=== PATIENT | female | born 1975 | race Caucasian/White ===

== ENCOUNTER 2017-06-28 17:27 | Emergency (ER) | payer OTHER ==
[2017-06-28 18:52] LABS: Absolute Lymphocytes (CBC) 3.3 K/uL (0.7-4.9); Absolute Monocytes 0.8 K/uL (0.1-1.3); Absolute Neutrophil 5.9 K/uL (1.8-8.0); Basophils % 0.9 % (0-1.3); Hematocrit 39.2 % (36.0-45.0); Lymphocytes % 32.4 % (15.3-44.8); MCH 30.3 pg (27.0-35.0); MCV 92.9 fL (80-100); MPV 9.1 fL (7.6-11.3); Monocytes % 7.3 % (3.3-12.3); RBC Red Blood Cell Count 4.22 M/uL (3.86-4.86)
[2017-06-28 18:56] LABS: Bicarbonate 28 mEq/L (21-31); Glucose Level 83 mg/dL (65-120); Lipase 16 U/L (22-51); Potassium 3.4 mEq/L (3.6-5.0); Sodium Level 138 mEq/L (135-145)
[2017-06-28 19:01] LABS: Urine Blood TRACE (NEG); Urine Glucose NEGATIVE (NEG); Urine Protein NEGATIVE (NEG); Urine Specific Gravity 1.015 (1.005-1.030)
[2017-06-28] MEDS ORDERED: MORPHINE 4 MG/ML SYR ONE ×2 (19:01→22:48)
[2017-06-28] MEDS ORDERED: NA CHLORIDE 0.9% 1,000 ML ONE (19:01)
[2017-06-28] MEDS ORDERED: ONDANSETRON 4 MG/2 ML VIAL ONE (19:01)
[2017-06-28 19:03] LABS: ALT/SGPT 13 IU/L (10-60); AST/SGOT 16 IU/L (10-42); Albumin 4.4 g/dL (3.2-5.5); Alkaline Phosphatase 55 IU/L (42-121); BUN Blood Urea Nitrogen 10 mg/dL (6-20); Bilirubin Direct 0.1 mg/dL (0-0.2); Bilirubin Total 0.6 mg/dL (0.3-1.2); Glomerular Filtration Rate > 90 mL/min (=/>90); Protein, Total 7.2 g/dL (6.0-8.3)
[2017-06-28 19:12] LABS: Urine Bacteria <20 /HPF (<20); Urine Culture Reflex Order NOT NEEDED
[2017-06-28 19:13] LABS: Urine Mucus NS /HPF (NONE SEEN)
--- NOTE | 2017-06-28 20:48 | RAD REPORT ---
EXAM DESCRIPTION: CTAbdomen Pelvis W Contrast - 06/28/2017 8:39 pm CLINICAL HISTORY: Abdominal pain. Bilateral flank pain. COMPARISON: 09/13/2014 TECHNIQUE: Biphasic CT imaging of the abdomen and pelvis was performed with 100 ml non-ionic IV cont rast. All CT scans are performed using dose optimization technique as appropriate and may include automated exposure control or mA/KV adjustment according to patient size. FINDINGS: The lung bases are clear.Cholecystectomy clips. The liver, spleen, pancreas, adrenal glands are within normal limits. Bilateral nephrolithiasis witho ut hydronephrosis. No bowel obstruction, free air, free fluid or abscess. The appendix is normal. No evidence of signi ficant lymphadenopathy. No suspicious bony findings. IMPRESSION: Mild bilateral nephrolithiasis without hydronephrosis.
--- NOTE | 2017-06-28 23:21 | EDPHYS ---
Physician Documentation [facility] Name: Eunice Griffin Age: 41 yrs Sex: Female : 1975 Arrival Date: 06/28/2017 Time: 17:29 Bed 23 Private MD: ED Physician Zach Garcia HPI: 06/28 22:00 This 41 yrs old Female presents to ER via Ambulatory with complaints of Flank pm1 Pain. 22:00 The patient complains of pain in the left low back and right low back. right flank pain pm1 radiation to right groin area. Onset: The symptoms/episode began/occurred june 05. Associated signs and symptoms: Pertinent negatives: dysuria, fever, nausea, vomiting. Severity of pain: in the emergency department the pain is actually worse. Patient with onset of flank pain a few weeks ago that was evaluated by her PCP and dx with UTI. Patient reports treatment with antibiotic that helped but then the pain returned. Patient without any burning with urination on presentation today. bilateral flank pain with right flank pain radiating to right groin area. MUFFLER TENDER: 17:50 LMP N/A - control method lk1 Historical: - Allergies: 17:49 Macrodantin; lk1 - PMHx: 17:49 Diabetes - NIDDM; Hypothyroidism; lk1 - PSHx: 17:49 ; Cholecystectomy; neck surgery; lk1 17:51 uterine ablation; lk1 - Immunization history:: Adult Immunizations up to date. - Social history:: Smoking status: Patient uses tobacco products, smokes one-half pack cigarettes per day. ROS: 22:00 Constitutional: Negative for fever, chills, and weight loss, Eyes: Negative for injury, pm1 pain, redness, and discharge, ENT: Negative for injury, pain, and discharge, Neck: Negative for injury, pain, and swelling, Cardiovascular: Negative for chest pain, palpitations, and edema, Respiratory: Negative for shortness of breath, cough, wheezing, and pleuritic chest pain, Abdomen/GI: Negative for abdominal pain, nausea, vomiting, diarrhea, and constipation. 22:00 : Negative for injury, bleeding, discharge, and swelling, MS/Extremity: Negative for injury and deformity, Skin: Negative for injury, rash, and discoloration, Neuro: Negative for headache, weakness, numbness, tingling, and seizure. 22:00 Back: Positive for flank pain, bilaterally. Exam: 22:00 Constitutional: This is a well developed, well nourished patient who is awake, alert, pm1 and in no acute distress. Head/Face: Normocephalic, atraumatic. Eyes: Pupils equal round and reactive to light, extra-ocular motions intact. Lids and lashes normal. Conjunctiva and sclera are non-icteric and not injected. Cornea within normal limits. Periorbital areas with no swelling, redness, or edema. ENT: Nares patent. No nasal discharge, no septal abnormalities noted. Tympanic membranes are normal and external auditory canals are clear. Oropharynx with no redness, swelling, or masses, exudates, or evidence of obstruction, uvula midline. Mucous membranes moist. Neck: Trachea midline, no thyromegaly or masses palpated, and no cervical lymphadenopathy. Supple, full range of motion without nuchal rigidity, or vertebral point tenderness. No Meningismus. Chest/axilla: Normal chest wall appearance and motion. Nontender with no deformity. No lesions are appreciated. Cardiovascular: Regular rate and rhythm with a normal S1 and S2. No gallops, murmurs, or rubs. Normal PMI, no JVD. No pulse deficits. Respiratory: Lungs have equal breath sounds bilaterally, clear to auscultation and percussion. No rales, rhonchi or wheezes noted. No increased work of breathing, no retractions or nasal flaring. Abdomen/GI: Soft, non-tender, with normal bowel sounds. No distension or tympany. No guarding or rebound. No evidence of tenderness throughout. 22:00 Skin: Warm, dry with normal turgor. Normal color with no rashes, no lesions, and no evidence of cellulitis. MS/ Extremity: Pulses equal, no cyanosis. Neurovascular intact. Full, normal range of motion. 22:00 Back: CVA tenderness, that is mild, is noted bilaterally. 22:00 Neuro: Orientation: is normal, Motor: moves all fours. Vital Signs: 17:50 BP 136 / 85; Pulse 81; Resp 14; Temp 97.4(TE); Pulse Ox 96% on R/A; Weight 70.31 kg lk1 (R); Height 5 ft. 2 in. (157.48 cm) (R); Pain 7/10; 19:00 BP 128 / 87; Pulse 76; Resp 16; Pulse Ox 98% on R/A; kr2 20:00 BP 136 / 92; Pulse 73; Resp 15; Pulse Ox 96% on R/A; kr2 21:08 BP 112 / 74; Pulse 81; Resp 16; Pulse Ox 94% on R/A; kr2 22:32 BP 119 / 82; Pulse 80; Resp 16; Pulse Ox 95% ; kr2 23:27 BP 122 / 86; Pulse 84; Resp 15; Pulse Ox 99% on R/A; kr2 17:50 Body Mass Index 28.35 (70.31 kg, 157.48 cm) lk1 MDM: 18:17 Patient medically screened. pm1 23:14 Data reviewed: vital signs. Data interpreted: Pulse oximetry: on room air is 95 %. pm1 Interpretation: normal. Counseling: I had a detailed discussion with the patient and/or guardian regarding: the historical points, exam findings, and any diagnostic results supporting the discharge/admit diagnosis, lab results, radiology results, the need for outpatient follow up, to return to the emergency department if symptoms worsen or persist or if there are any questions or concerns that arise at home. 06/28 18:23 Order name: Urine Microscopic Only; Complete Time: 19:25 pm1 06/28 18:23 Order name: Basic Metabolic Panel; Complete Time: 19:06 pm1 06/28 18:23 Order name: CBC with Diff; Complete Time: 19:06 pm1 06/28 18:23 Order name: Hepatic Function; Complete Time: 19:06 pm1 06/28 18:23 Order name: Lipase; Complete Time: 19:06 pm06/28 18:37 Order name: Urine Dipstick--Ancillary (enter results); Complete Time: 19:06 bd 06/28 18:23 Order name: Urine Test (obtain specimen); Complete Time: 18:43 pm1 06/28 18:23 Order name: IV Saline Lock; Complete Time: 18:43 pm1 06/28 18:23 Order name: CT Abd/Pelvis - W/Contrast; Complete Time: 20:52 pm1 06/28 18:37 Order name: Urine --Ancillary (enter results); Complete Time: 19:06 bd 06/28 18:23 Order name: Labs collected and sent; Complete Time: 18:43 pm1 06/28 18:23 Order name: Urine Dipstick-Ancillary (obtain specimen); Complete Time: 18:43 pm1 Administered Medications: 18:49 Drug: morphine 4 mg Route: IVP; Site: left antecubital; kr2 20:41 Follow up: Response: No adverse reaction; Pain is decreased kr2 18:49 Drug: Zofran 4 mg Route: IVP; Site: left antecubital; kr2 20:40 Follow up: Response: No adverse reaction; Nausea is decreased kr2 18:49 Drug: NS 0.9% 1000 ml Route: IV; Rate: 1000 ml; Site: left antecubital; kr2 20:15 Follow up: Response: No adverse reaction; IV Status: Completed infusion kr2 22:31 Drug: morphine 4 mg Route: IVP; Site: right antecubital; kr2 23:28 Follow up: Response: No adverse reaction kr2 Disposition: 06/28/17 23:20 Discharged to Home. Impression: Bilateral nephrolithiasis without hydronephrosis. - Condition is Stable. - Discharge Instructions: Kidney Stones, Dietary Guidelines to Help Prevent Kidney Stones. - Prescriptions for Tylenol- Codeine #3 300-30 mg Oral Tablet - take 2 tablets by ORAL route every 6 hours As needed; 20 tablet. Zofran 4 mg Oral Tablet - take 1 tablet by ORAL route every 8 hours As needed; 20 tablet. - Medication Reconciliation Form, Thank You Letter, Antibiotic Education, Prescription Opioid Use form. - Follow up: Emergency Department; When: As needed; Reason: Worsening of condition. Follow up: Alexa Mckeon MD; When: 2 - 3 days; Reason: Recheck today's complaints, Continuance of care, Re-evaluation by your physician. Follow up: Trenton Ross MD; When: 2 - 3 days; Reason: Recheck today's complaints, Continuance of care, Re-evaluation by your physician. - Problem is new. - Symptoms have improved. Addendum: 07/03/2017 03:04 Co-signature as Attending Physician, Zach Garcia MD I agree with the assessment and t w4 plan of care. Signatures: Dispatcher [employer] EDLakeisha Dawn RN RN lk1 Abhay Medrano, ALUMINUM CAN COLLECTOR ALUMINUM CAN COLLECTOR pm1 Juan, Gemma, RN RN kr2 Zach Garcia, MD tw4
--- NOTE | 2017-06-28 23:21 | ER ---
Nurse's Notes [facility] Name: Eunice Griffin Age: 41 yrs Sex: Female : 1975 Arrival Date: 06/28/2017 Time: 17:29 Bed 23 Private MD: Diagnosis: Bilateral nephrolithiasis without hydronephrosis Presentation: 06/28 17:47 Presenting complaint: Patient states: "I am having pain in my right side in the front lk1 and both my kidneys hurt.". Transition of care: patient was not received from another setting of care. Onset of symptoms was June 05, 2017. Care prior to arrival: None. 17:47 Method Of Arrival: Ambulatory lk1 17:47 Acuity: BEBO 3 lk1 Triage Assessment: 17:49 General: Appears uncomfortable, Behavior is calm, cooperative, appropriate for age. lk1 Pain: Complains of pain in right lower quadrant Pain radiates to left flank and right flank Pain currently is 7 out of 10 on a pain scale. GI: Reports nausea. : Reports pain in bilateral flank(s), lower quadrant(s) does not feel like she is emptying her bladder completely. RN INTAKE: 17:50 LMP N/A - control method lk1 Historical: - Allergies: 17:49 Macrodantin; lk1 - PMHx: 17:49 Diabetes - NIDDM; Hypothyroidism; lk1 - PSHx: 17:49 ; Cholecystectomy; neck surgery; lk1 17:51 uterine ablation; lk1 - Immunization history:: Adult Immunizations up to date. - Social history:: Smoking status: Patient uses tobacco products, smokes one-half pack cigarettes per day. Screenin:58 Abuse screen: Denies threats or abuse. Denies injuries from another. Nutritional kr2 screening: No deficits noted. Tuberculosis screening: No symptoms or risk factors identified. Fall Risk None identified. Assessment: 18:55 General: Appears in no apparent distress. comfortable, well groomed, well developed, kr2 well nourished, Behavior is calm, cooperative, appropriate for age. Pain: Complains of pain in right flank and abdomen Pain currently is 8 out of 10 on a pain scale. Quality of pain is described as stabbing, Pain began gradually, 2-3 days ago. Is continuous, Alleviated by nothing. Aggravated by increased activity. Neuro: Level of Consciousness is awake, alert, obeys commands, Oriented to person, place, time, situation, Appropriate for age. Cardiovascular: Capillary refill < 3 seconds in bilateral fingers Patient's skin is warm and dry. Respiratory: Airway is patent Respiratory effort is even, unlabored, Respiratory pattern is regular, symmetrical. GI: Abdomen is flat, non-distended, Bowel sounds present X 4 quads. Abd is soft X 4 quads Abdomen has rebound tenderness in right lower quadrant. : Urine is clear, Denies burning with urination. EENT: Nares are clear bilaterally Oral mucosa is moist. Derm: Skin is intact, is healthy with good turgor, Skin is pink, warm \\T\\ dry. Musculoskeletal: Circulation, motion, and sensation intact. 19:00 Reassessment: Complete PO contrast, CT department notified. kr2 20:35 Reassessment: Patient in CT at this time. kr2 21:00 Reassessment: Patient appears in no apparent distress at this time. Patient and/or kr2 family updated on plan of care and expected duration. Pain level reassessed. Patient is alert, oriented x 3, equal unlabored respirations, skin warm/dry/pink. Patient states feeling better. 22:31 Reassessment: Patient appears in no apparent distress at this time. Patient and/or kr2 family updated on plan of care and expected duration. Pain level reassessed. Patient is alert, oriented x 3, equal unlabored respirations, skin warm/dry/pink. Patient states she is starting to have pain again. Provider notified, order received for Morphine 4mg IVP, given as ordered, see MAR. 23:27 Reassessment: Patient appears in no apparent distress at this time. Patient and/or kr2 family updated on plan of care and expected duration. Pain level reassessed. Patient is alert, oriented x 3, equal unlabored respirations, skin warm/dry/pink. Patient denies pain at this time. Patient states feeling better. Vital Signs: 17:50 BP 136 / 85; Pulse 81; Resp 14; Temp 97.4(TE); Pulse Ox 96% on R/A; Weight 70.31 kg lk1 (R); Height 5 ft. 2 in. (157.48 cm) (R); Pain 7/10; 19:00 BP 128 / 87; Pulse 76; Resp 16; Pulse Ox 98% on R/A; kr2 20:00 BP 136 / 92; Pulse 73; Resp 15; Pulse Ox 96% on R/A; kr2 21:08 BP 112 / 74; Pulse 81; Resp 16; Pulse Ox 94% on R/A; kr2 22:32 BP 119 / 82; Pulse 80; Resp 16; Pulse Ox 95% ; kr2 23:27 BP 122 / 86; Pulse 84; Resp 15; Pulse Ox 99% on R/A; kr2 17:50 Body Mass Index 28.35 (70.31 kg, 157.48 cm) lk1 ED Course: 17:29 Patient arrived in ED. as 17:48 Triage completed. lk1 17:51 Arm band placed on right wrist. lk1 18:00 Urine collected: clean catch specimen, clear. dh3 18:15 Abhay Medraon NP is PHCP. pm1 18:15 Zach Garcia MD is Attending Physician. pm1 18:39 Gemma Martinez, TANISHA is Primary Nurse. kr2 18:42 Initial lab(s) drawn, by de, sent to lab. Inserted saline lock: 20 gauge in right 3 antecubital area, using aseptic technique. Blood collected. 18:58 Patient has correct armband on for positive identification. Bed in low position. Call kr2 light in reach. Side rails up X 1. Pulse ox on. NIBP on. Door closed. Warm blanket given. Head of bed elevated. 20:40 CT Abd/Pelvis - W/Contrast In Process Unspecified. EDMS 23:20 Alexa Mckeon MD is Referral Physician. pm1 23:20 Trenton Ross MD is Referral Physician. pm1 23:52 No provider procedures requiring assistance completed. IV discontinued, intact, kr2 bleeding controlled, No redness/swelling at site. Pressure dressing applied. Administered Medications: 18:49 Drug: morphine 4 mg Route: IVP; Site: left antecubital; kr2 20:41 Follow up: Response: No adverse reaction; Pain is decreased kr2 18:49 Drug: Zofran 4 mg Route: IVP; Site: left antecubital; kr2 20:40 Follow up: Response: No adverse reaction; Nausea is decreased kr2 18:49 Drug: NS 0.9% 1000 ml Route: IV; Rate: 1000 ml; Site: left antecubital; kr2 20:15 Follow up: Response: No adverse reaction; IV Status: Completed infusion kr2 22:31 Drug: morphine 4 mg Route: IVP; Site: right antecubital; kr2 23:28 Follow up: Response: No adverse reaction kr2 Outcome: 23:20 Discharge ordered by . pm1 23:52 Discharged to home ambulatory, with family. kr2 23:52 Condition: good 23:52 Discharge instructions given to patient, Instructed on discharge instructions, follow up and referral plans. medication usage, Demonstrated understanding of instructions, follow-up care, medications, Prescriptions given X 2. 23:53 Patient left the ED. kr2 Signatures: Dispatcher [employer] EDMS Rebeca Alva Leah, RN RN lk1 Abhay Medrano NP SURGICAL TECH pm1 Jacqueline Chen 3 Gemma Martinez RN RN kr2
[2017-06-28 23:58] VITALS: TEMP 97.4
[2017-06-29 00:30] VITALS: BP 122/86; O2SAT 99
== END 2017-06-28 23:53 | disposition home or self-care (01) ==
LOC: ER 17:27
DX: N20.0 Calculus of kidney (principal); F17.210 Nicotine dependence, cigarettes, uncomplicated; Z88.3 Allergy status to other anti-infective agents
CPT/HCPCS: 36415; 74177; 80048; 80076; 81003; 81015; 81025; 83690; 85025; 99284; J2405; J7030

== ENCOUNTER 2017-07-13 08:40 | Day surgery (SDC) | payer OTHER ==
[2017-07-12 13:01] LABS: Urine Appearance CLEAR; Urine Color YELLOW
[2017-07-12 13:02] LABS: Urine Bilirubin NEGATIVE (NEG); Urine Blood TRACE (NEG); Urine Glucose NEGATIVE (NEG); Urine Microscopic Reflex ORDER UMIC; Urine Protein NEGATIVE (NEG); Urine Specific Gravity 1.015 (1.005-1.030); Urine Urobilinogen 0.2 mg/dL (0.2-1.0)
[2017-07-12 13:08] LABS: Absolute Lymphocytes (CBC) 2.5 K/uL (0.7-4.9); Absolute Monocytes 0.6 K/uL (0.1-1.3); Absolute Neutrophil 3.9 K/uL (1.8-8.0); Basophils % 0.5 % (0-1.3); Eosinophils % 2.3 % (0-4.4); Hematocrit 40.7 % (36.0-45.0); Lymphocytes % 34.7 % (15.3-44.8); MCH 31.3 pg (27.0-35.0); MCV 92.9 fL (80-100); RBC Red Blood Cell Count 4.38 M/uL (3.86-4.86)
[2017-07-12 13:12] LABS: Bicarbonate 30 mEq/L (21-31); Glucose Level 88 mg/dL (65-120); Potassium 3.8 mEq/L (3.6-5.0); Sodium Level 139 mEq/L (135-145)
[2017-07-12 13:16] LABS: BUN Blood Urea Nitrogen 9 mg/dL (6-20); Glomerular Filtration Rate > 90 mL/min (=/>90); Uric Acid 3.6 mg/dL (2.6-8.0)
[2017-07-12 13:18] LABS: Urine Bacteria NONE SEEN /HPF (<20); Urine RBC <5 /HPF (NONE SEEN)
[2017-07-12 13:19] LABS: Urine Culture Reflex Order NOT NEEDED; Urine Mucus LIGHT /HPF (NONE SEEN)
--- NOTE | 2017-07-12 13:45 | EKG ---
Test Date: 2017-07-12 Test Time: 12:43:37 Steam Pan Sponger: VERONICA MEASUREMENT RESULTS: Intervals: Rate: 66 NJ: 148 QRSD: 80 QT: 386 QTc: 404 Lockhart: P: 61 NJ: 148 QRS: 49 T: 35 INTERPRETIVE STATEMENTS: Normal sinus rhythm with sinus arrhythmia Normal ECG Compared to ECG 01/11/2016 23:28:37 T-wave abnormality no longer present Electronically Signed On 07-12-17 13:44:46 CDT by Luc Calderon
--- NOTE | 2017-07-12 14:00 | RAD REPORT ---
EXAM DESCRIPTION: RAD - Chest Pa And Lat (2 Views) - 07/12/2017 1:38 pm CLINICAL HISTORY: Preop chest, pending lithotripsy COMPARISON: December 2015 TECHNIQUE: PA and lateral views of the chest were obtained. FINDINGS: The lungs are clear. Heart size is normal and central vasculature is within normal limit s. No pleural effusion or pneumothorax seen. No acute bony finding noted. No aortic abnormality. IMPRESSION: No acute cardiopulmonary process.
[2017-07-13] MEDS ORDERED: NA CHLORIDE 0.9% 1,000 ML ONE (08:51)
[2017-07-13] MEDS ORDERED: GENTAMICIN 80 MG/100 ML BAG 80 MG/100 ML BAG IV ONE (08:51)
--- NOTE | 2017-07-13 09:25 | RAD REPORT ---
EXAM DESCRIPTION: RAD - Abdomen 1 View (KUB) - 07/13/2017 8:58 am CLINICAL HISTORY: Kidney stone, pending lithotripsy COMPARISON: KUB July 09, CT study June 28 FINDINGS: Bilateral nephrolithiasis is seen in the mid and lower poles of each kidney in a pattern g enerally matching the prior KUB and prior CT studies. Numerous pelvic phleboliths are present. Patter n is not clearly different from the prior study. A new ureteral calculus is not suspected. No obstruction, free air or pneumatosis. Bowel gas pattern is nonspecific. No significant bony findings IMPRESSION: Bilateral nephrolithiasis in the mid and lower aspect of each kidney. No evidence for new ureteral calculus.
[2017-07-13] MEDS ORDERED: PROPOFOL 200 MG/20 ML VIAL IV ONE (09:54)
[2017-07-13] MEDS ORDERED: MIDAZOLAM HCL 2 MG/2 ML INJ ONE (09:54)
[2017-07-13] MEDS ORDERED: FENTANYL CITR 100 MCG/2 ML ONE (09:55)
[2017-07-13] MEDS ORDERED: LIDOCAINE 1% MPF 5 ML VIAL ONE (09:55)
[2017-07-13] MEDS ORDERED: KETOROLAC 30 MG/ML INJ ONE (10:50)
[2017-07-13] MEDS ORDERED: ONDANSETRON 4 MG/2 ML VIAL ONE (10:50)
[2017-07-13] MEDS: MORPHINE 10 MG/ML VIAL ONE ×5 (11:25→11:50)
[2017-07-13] MEDS ORDERED: TRAMADOL HCL 50 MG TAB ONE (13:38)
[2017-07-13 16:00] VITALS: BP 120/77; TEMP 98; O2SAT 98
== END 2017-07-13 13:50 | disposition home or self-care (01) ==
LOC: OR 08:40
PROVIDERS: ATTEND Urology
PROC: 0TF4XZZ Fragmentation in Left Kidney Pelvis, External Approach (ICD-10-PCS; principal; 2017-07-13 10:00)
DX: N20.0 Calculus of kidney (principal); E11.9 Type 2 diabetes mellitus without complications; E03.9 Hypothyroidism, unspecified; F32.9 Major depressive disorder, single episode, unspecified; F17.210 Nicotine dependence, cigarettes, uncomplicated; Z91.040 Latex allergy status; Z88.3 Allergy status to other anti-infective agents; Z90.49 Acquired absence of other specified parts of digestive tract; Z83.3 Family history of diabetes mellitus
CPT/HCPCS: 36415; 50590; 71046; 74018; 80048; 81003; 81015; 82962; 84100; 84550; 85025; 85610; 85730; 87086; 87088; 93005; J1580; J2250; J2405; J3010; J7030

== ENCOUNTER 2017-11-02 07:24 | Day surgery (SDC) | payer OTHER ==
[2017-11-01 13:17] LABS: Urine Appearance CLEAR; Urine Bilirubin NEGATIVE (NEG); Urine Blood NEGATIVE (NEG); Urine Color YELLOW; Urine Glucose NEGATIVE (NEG); Urine Protein NEGATIVE (NEG); Urine Specific Gravity 1.015 (1.005-1.030); Urine Urobilinogen 0.2 mg/dL (0.2-1.0)
[2017-11-01 13:31] LABS: Urine Microscopic Reflex NO UMIC
[2017-11-01 13:36] LABS: BUN Blood Urea Nitrogen 8 mg/dL (7-18); Bicarbonate 27 mmol/L (21-32); Glucose Level 120 mg/dL (74-106); Phosphorus 2.5 mg/dL (2.5-4.9); Potassium 3.5 mmol/L (3.5-5.1); Sodium Level 143 mmol/L (136-145); Uric Acid 3.1 mg/dL (2.6-6.0)
[2017-11-01 13:56] LABS: Absolute Lymphocytes (CBC) 2.6 K/uL (0.7-4.9); Absolute Monocytes 0.6 K/uL (0.1-1.3); Absolute Neutrophil 5.1 K/uL (1.8-8.0); Basophils % 0.7 % (0-1.3); Eosinophils % 2.2 % (0-4.4); Hematocrit 41.1 % (36.0-45.0); Lymphocytes % 30.3 % (15.3-44.8); MCH 32.1 pg (27.0-35.0); MCV 92.8 fL (80-100); MPV 9.4 fL (7.6-11.3); RBC Red Blood Cell Count 4.42 M/uL (3.86-4.86)
[2017-11-01 13:57] LABS: Protime INR 0.93
--- NOTE | 2017-11-01 14:08 | RAD REPORT ---
EXAM DESCRIPTION: RAD - Chest Pa And Lat (2 Views) - 11/01/2017 1:55 pm CLINICAL HISTORY: Preop chest examination, pending right-side lithotripsy for renal/ureteral calculu s COMPARISON: June 2017 TECHNIQUE: PA and lateral views of the chest were obtained. FINDINGS: The lungs are clear. Heart size is normal and central vasculature is within normal limit s. No pleural effusion or pneumothorax seen. No acute bony finding noted. No aortic abnormality. IMPRESSION: No acute cardiopulmonary process. No significant change from comparison.
--- NOTE | 2017-11-02 06:49 | EKG ---
Test Date: 2017-11-01 Test Time: 13:03:40 Bb Shot Packer: BETTE MEASUREMENT RESULTS: Intervals: Rate: 67 AK: 154 QRSD: 86 QT: 382 QTc: 403 Mcdavid: P: 55 AK: 154 QRS: 50 T: 29 INTERPRETIVE STATEMENTS: Normal sinus rhythm Normal ECG Compared to ECG 07/12/2017 12:43:37 Sinus arrhythmia no longer present Electronically Signed On 11-02-17 06:49:17 CDT by Luc Calderon
[2017-11-02] MEDS ORDERED: GENTAMICIN 100 MG/100 ML BAG 100 MG/100 ML BAG IV ONE (08:10)
[2017-11-02] MEDS: NA CHLORIDE 0.9% 1,000 ML ONE ×2 (08:26→09:50)
[2017-11-02] MEDS ORDERED: PROPOFOL 200 MG/20 ML VIAL IV ONE (09:01)
[2017-11-02] MEDS ORDERED: MIDAZOLAM HCL 2 MG/2 ML INJ ONE (09:01)
[2017-11-02] MEDS ORDERED: FENTANYL CITR 100 MCG/2 ML ONE (09:02)
[2017-11-02] MEDS ORDERED: LIDOCAINE 2% MPF 5 ML VIAL ONE (09:02)
[2017-11-02] MEDS ORDERED: ONDANSETRON HCL 40 MG/20 ML VIAL ONE (09:02)
--- NOTE | 2017-11-02 09:10 | RAD REPORT ---
EXAM DESCRIPTION: RAD - Abdomen 1 View (KUB) - 11/02/2017 8:15 am CLINICAL HISTORY: Renal calculi Pain COMPARISON: Abdomen 1 View (KUB) dated 10/18/2017; Abdomen 1 View (KUB) dated 07/21/2017; Abdomen 1 Vi ew (KUB) dated 07/13/2017 FINDINGS: The bowel gas pattern is non-obstructive. No evidence of free air or pneumatosis. Definiti ve tract calculus is not seen. Study is limited due to the presence of significant fecal material in the colon. No significant bony findings. Cholecystectomy clips. IMPRESSION: No tract calculus is observed with confidence.
[2017-11-02] MEDS ORDERED: D50W 25 GM/50 ML SYRINGE IV ONE ×2 (09:18→10:52)
[2017-11-02] MEDS ORDERED: MEPERIDINE HCL 50 MG/ML AMP ONE (11:10)
[2017-11-02] MEDS ORDERED: ONDANSETRON 4 MG/2 ML VIAL IV ONE (11:30)
[2017-11-02] MEDS ORDERED: ONDANSETRON 4 MG/2 ML VIAL ONE (11:31)
[2017-11-02 11:43] VITALS: TEMP 97.4
[2017-11-02] MEDS ORDERED: PROMETHAZINE 25 MG/ML VIAL ONE (12:14)
[2017-11-02] MEDS ORDERED: PROMETHAZINE 25 MG/ML VIAL IV ONE (12:15)
[2017-11-02 13:10] VITALS: BP 119/72; O2SAT 96
== END 2017-11-02 12:55 | disposition home or self-care (01) ==
LOC: OR 07:24
PROVIDERS: ATTEND Urology
PROC: 0TF3XZZ Fragmentation in Right Kidney Pelvis, External Approach (ICD-10-PCS; principal; 2017-11-02 09:30)
DX: N20.0 Calculus of kidney (principal); E11.9 Type 2 diabetes mellitus without complications; Z79.84 Long term (current) use of oral hypoglycemic drugs; F17.210 Nicotine dependence, cigarettes, uncomplicated; E03.9 Hypothyroidism, unspecified
CPT/HCPCS: 36415; 50590; 71046; 74018; 80048; 81003; 82962; 84100; 84550; 85025; 85610; 85730; 87086; 87088; 93005; J1580; J2175; J2250; J2405; J2550; J3010; J7030

== ENCOUNTER 2018-10-20 07:04 | Emergency (ER) | payer OTHER ==
[2018-10-20 07:44] LABS: Absolute Lymphocytes (CBC) 2.7 K/uL (0.7-4.9); Basophils % 0.9 % (0-1.3); Hematocrit 43.4 % (36.0-45.0); Lymphocytes % 21.8 % (15.3-44.8); MPV 9.5 fL (7.6-11.3); RBC Red Blood Cell Count 4.63 M/uL (3.86-4.86)
--- NOTE | 2018-10-20 08:00 | RAD REPORT ---
EXAM DESCRIPTION: CT - Stone Protocol - 10/20/2018 7:46 am CLINICAL HISTORY: Right flank pain COMPARISON: June 2017 TECHNIQUE: Axial 5 mm thick images were obtained without oral or IV contrast. The [id number] span s the entirety of the system partially obscuring uppermost abdomen and lung bases. All CT scans are performed using dose optimization technique as appropriate and may include automated exposure control or mA/KV adjustment according to patient size. FINDINGS: Mild dilatation of the right ureter, pelvis and calices noted. Similar pattern is present on the left. Patient had this similar mild hydronephrosis pattern on the 2018 comparison. No obstruct ing ureteral calculi confirmed. Patient has a nonobstructing 2 mm calcification in the posterior mid right kidney calyx. A 2 millimeter calcification present in a calyx mid left kidney. Patient has numerous phleboliths in the pelvis several in close proximity to the course of the right ureter. However, none can be confirmed as ureteral in origin. In the absence of contrast, pyelonephri tis cannot be evaluated. Delayed or asymmetric function also cannot be assessed. No suspicious renal masses. Mass assessment is limited in the absence of contrast. No urinary bladder suspicious finding. No significant adrenal finding. Imaged portions of the liver, spleen and pancreas show no suspicious findings on non-contrast imaging . Cholecystectomy clips are present. No biliary tree dilatation. Liver attenuation is borderline to m ildly fatty infiltrated. No suspicious bowel findings. Appendix is normal. No suspicious uterine finding. Left ovary has an ap proximately 16 millimeter cyst. No suspicious right ovarian finding. No hernia, mass or bulky lymphadenopathy noted. No free air or pneumatosis. Trace amount of free flui d in the right adnexa. This is within physiologic limits. No significant bony abnormality. IMPRESSION: Mild bilateral hydronephrosis pattern is present without an obstructing calculus. This p attern matches pain June 2017 study. Patient has nonobstructing small calculus, 1 in each kidney. Isodense masses, asymmetric renal function and pyelonephritis cannot be assessed in the absence of IV contrast. No acute GI or MANAGER CULTURE process seen. A small left ovarian cyst is evident. Trace free fluid in the right adnexa is within physiologic limits. This could be potentially from a l eaking ovarian cyst. Borderline to mild fatty infiltration of the liver. Gallbladder is absent. No biliary tree dilatation .
[2018-10-20 08:07] LABS: BUN Blood Urea Nitrogen 11 mg/dL (7-18); Bicarbonate 26 mmol/L (21-32); Glucose Level 202 mg/dL (74-106); Potassium 3.6 mmol/L (3.5-5.1); Sodium Level 139 mmol/L (136-145); Troponin (Emerg Dept Use Only) < 0.02 ng/mL (0.0-0.045)
--- NOTE | 2018-10-20 08:15 | ER ---
Nurse's Notes [facility] Name: Eunice Griffin Age: 42 yrs Sex: Female : 1975 Arrival Date: 10/20/2018 Time: 07:07 Bed 20 Private MD: Trenton Ross B Diagnosis: Right Flank Pain;Chest pain, unspecified-right sided Presentation: 10/20 07:13 Presenting complaint: Right flank pain x 3 days, right sided chest pain since yesterday. Transition of care: patient was not received from another setting of care. Onset of symptoms was October 17, 2018. Risk Assessment: Do you want to hurt yourself or someone else? Patient reports no desire to harm self or others. Initial Sepsis Screen: Does the patient meet any 2 criteria? No. Patient's initial sepsis screen is negative. Does the patient have a suspected source of infection? No. Patient's initial sepsis screen is negative. Care prior to arrival: None. 07:13 Method Of Arrival: Ambulatory hb 07:13 Acuity: BEBO 3 hb Triage Assessment: 07:24 General: Appears in no apparent distress. comfortable, obese, Behavior is calm, bp cooperative, appropriate for age. Pain: Complains of pain in right flank and right lateral anterior chest. EENT: No deficits noted. Neuro: No deficits noted. Cardiovascular: Rhythm is sinus rhythm. Respiratory: No deficits noted. GI: No signs and/or symptoms were reported involving the gastrointestinal system. : No signs and/or symptoms were reported regarding the genitourinary system. Derm: No deficits noted. Musculoskeletal: No deficits noted. TOUR GUIDE: 08:06 LMP N/A - Irregular menses bp Historical: - Allergies: 07:14 Macrodantin; bp - Home Meds: 07:14 levothyroxine 100 mcg tab 1 tab once daily [Active]; metformin 1,000 mg Oral tab 1 tab bp 2 times per day [Active]; Trulicity 1.5 mg/0.5 mL subcutaneous pnij 0.5 mL once wkly [Active]; Wellbutrin 300 mg Oral tab 1 tab daily [Active]; - PMHx: 07:14 Diabetes - NIDDM; Hypothyroidism; bp - Immunization history:: Adult Immunizations up to date. - Social history:: Smoking status: Patient uses tobacco products, smokes one-half pack cigarettes per day. - Ebola Screening: : No symptoms or risks identified at this time. Screenin:12 Abuse screen: Denies threats or abuse. Denies injuries from another. Nutritional bp screening: No deficits noted. Tuberculosis screening: No symptoms or risk factors identified. Fall Risk None identified. Assessment: 07:12 General: SEE TRIAGE NOTE. bp 07:15 Pain: Pain radiates to right flank Pain began 2-3 days ago. bp 08:09 Reassessment: ALL CURRENT ORDERS COMPLETED, RESULTS PENDING. bp 08:25 Reassessment: PT D/C HOME AMBULATORY, DX WITH NONSPECIFIC CHEST PAIN. bp Vital Signs: 07:13 BP 149 / 83; Pulse 83; Resp 16; Temp 97.6(TE); Pulse Ox 98% on R/A; Weight 77.11 kg; hb Height 5 ft. 2 in. (157.48 cm); Pain 5/10; 07:34 BP 125 / 76; Pulse 74; Resp 16; Pulse Ox 98% ; bp 08:06 BP 110 / 59; Pulse 79; Resp 16; Pulse Ox 97% ; bp 07:13 Body Mass Index 31.09 (77.11 kg, 157.48 cm) hb ED Course: 07:07 Patient arrived in ED. as 07:07 Julienne Mcleod [facility]C [facility]. kb 07:07 Kd Fitzgerald MD is Attending Physician. kb 07:08 Trenton Ross MD is Private Physician. as 07:11 Donell Rivero, TANISHA is Primary Nurse. bp 07:12 Patient has correct armband on for positive identification. Placed in gown. Bed in low bp position. Call light in reach. Side rails up X2. youth nutritional monitor on. Pulse ox on. NIBP on. 07:13 Arm band placed on. hb 07:14 Triage completed. hb 07:30 EKG done, by explosive technician. reviewed by Julienne PEÑA. sm3 07:33 Inserted saline lock: 20 gauge in right antecubital area, using aseptic technique. bp Blood collected. Patient maintains SpO2 saturation greater than 95% on room air. 07:39 Chest Single View XRAY In Process Unspecified. EDMS 07:47 CT Stone Protocol In Process Unspecified. EDMS 08:08 Basic Metabolic Panel Sent. bp 08:26 No provider procedures requiring assistance completed. IV discontinued, intact, bp bleeding controlled, No redness/swelling at site. Pressure dressing applied. Administered Medications: 08:15 Drug: TORadol - Ketorolac 15 mg Route: IVP; Site: right antecubital; bp 08:25 Follow up: Response: No adverse reaction; Pain is decreased bp Outcome: 08:15 Discharge ordered by MD. murillo 08:26 Discharged to home ambulatory. bp 08:26 Condition: stable 08:26 Discharge instructions given to patient, Instructed on discharge instructions, follow up and referral plans. medication usage, Demonstrated understanding of instructions, follow-up care, medications, Prescriptions given X 1. 08:28 Patient left the ED. bp Signatures: Dispatcher [employer] EDMS Julienne Mcleod, CASEY BAUTISTA-Rebeca Wheeler Heather, RN RN Donell Whitaker RN RN Lesli Hook 3
--- NOTE | 2018-10-20 08:16 | EDPHYS ---
Physician Documentation [facility] Name: Eunice Griffin Age: 42 yrs Sex: Female : 1975 Arrival Date: 10/20/2018 Time: 07:07 Bed 20 Private MD: Trenton Ross B ED Physician Kd Fitzgerald HPI: 10/20 08:13 This 42 yrs old Female presents to ER via Ambulatory with complaints of Chest kb Pain, Flank Pain. 08:13 The patient complains of pain in the right flank. The pain radiates to the abdomen. kb Onset: The symptoms/episode began/occurred 3 day(s) ago. Modifying factors: The symptoms are alleviated by nothing. the symptoms are aggravated by nothing. Associated signs and symptoms: The patient has no apparent associated signs or symptoms. Severity of pain: At its worst the pain was moderate in the emergency department the pain is unchanged. The patient has experienced similar episodes in the past. The patient has not recently seen a physician. Pt reports right flank pain that started 3 days ago. States she thought he just needed to increase water intake, but is still having the pain. History of kidney stones. Also reports right chest pain that started yesterday with cough and feels like she cannot take a full breath. 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 - Social history:: Smoking status: Patient uses tobacco products, smokes one-half pack cigarettes per day. - Ebola Screening: : No symptoms or risks identified at this time. ROS: 08:12 Constitutional: Negative for fever, chills, and weight loss, ENT: Negative for injury, kb pain, and discharge, Neck: Negative for injury, pain, and swelling, Respiratory: Negative for shortness of breath, cough, wheezing, and pleuritic chest pain, Abdomen/GI: Negative for abdominal pain, nausea, vomiting, diarrhea, and constipation, : Negative for injury, bleeding, discharge, and swelling, MS/Extremity: Negative for injury and deformity, Skin: Negative for injury, rash, and discoloration, Neuro: Negative for headache, weakness, numbness, tingling, and seizure. 08:12 Cardiovascular: Positive for chest pain, Negative for edema, orthopnea, palpitations, paroxysmal nocturnal dyspnea. 08:12 Back: Positive for flank pain, on the right. Exam: 07:23 Constitutional: This is a well developed, well nourished patient who is awake, alert, kb and in no acute distress. Head/Face: Normocephalic, atraumatic. ENT: Nares patent. No nasal discharge, no septal abnormalities noted. Tympanic membranes are normal and external auditory canals are clear. Oropharynx with no redness, swelling, or masses, exudates, or evidence of obstruction, uvula midline. Mucous membranes moist. Neck: Trachea midline, no thyromegaly or masses palpated, and no cervical lymphadenopathy. Supple, full range of motion without nuchal rigidity, or vertebral point tenderness. No Meningismus. Chest/axilla: Normal chest wall appearance and motion. Nontender with no deformity. No lesions are appreciated. Cardiovascular: Regular rate and rhythm with a normal S1 and S2. No gallops, murmurs, or rubs. Normal PMI, no JVD. No pulse deficits. Respiratory: Lungs have equal breath sounds bilaterally, clear to auscultation and percussion. No rales, rhonchi or wheezes noted. No increased work of breathing, no retractions or nasal flaring. Abdomen/GI: Soft, non-tender, with normal bowel sounds. No distension or tympany. No guarding or rebound. No evidence of tenderness throughout. Back: No spinal tenderness. No costovertebral tenderness. Full range of motion. Skin: Warm, dry with normal turgor. Normal color with no rashes, no lesions, and no evidence of cellulitis. MS/ Extremity: Pulses equal, no cyanosis. Neurovascular intact. Full, normal range of motion. Neuro: Awake and alert, GCS 15, oriented to person, place, time, and situation. Cranial nerves II-XII grossly intact. Motor strength 5/5 in all extremities. Sensory grossly intact. Cerebellar exam normal. Normal gait. 07:23 ECG was reviewed by the Attending Physician. Vital Signs: 07:13 BP 149 / 83; Pulse 83; Resp 16; Temp 97.6(TE); Pulse Ox 98% on R/A; Weight 77.11 kg; hb Height 5 ft. 2 in. (157.48 cm); Pain 5/10; 07:34 BP 125 / 76; Pulse 74; Resp 16; Pulse Ox 98% ; bp 08:06 BP 110 / 59; Pulse 79; Resp 16; Pulse Ox 97% ; bp 07:13 Body Mass Index 31.09 (77.11 kg, 157.48 cm) hb MDM: 07:08 Patient medically screened. kb 08:12 Data reviewed: vital signs, nurses notes. Data interpreted: Pulse oximetry: on room air kb is 97 %. Interpretation: normal. Counseling: I had a detailed discussion with the patient and/or guardian regarding: the historical points, exam findings, and any diagnostic results supporting the discharge/admit diagnosis, lab results, radiology results, the need for outpatient follow up, a family practitioner, to return to the emergency department if symptoms worsen or persist or if there are any questions or concerns that arise at home. 10/20 07:14 Order name: Basic Metabolic Panel kb 10/20 07:14 Order name: CBC with Diff; Complete Time: 07:54 kb 10/20 07:14 Order name: Troponin (emerg Dept Use Only); Complete Time: 08:10 kb 10/20 07:15 Order name: Basic Metabolic Panel; Complete Time: 08:10 EDMS 10/20 07:23 Order name: Urine Dipstick--Ancillary (enter results) eb 10/20 07:29 Order name: Test, Urine; Complete Time: 07:45 EDMS 10/20 07:14 Order name: IV Saline Lock; Complete Time: 08:05 kb 10/20 07:14 Order name: Labs collected and sent; Complete Time: 08:05 kb 10/20 07:14 Order name: EKG; Complete Time: 07:16 kb 10/20 07:14 Order name: EKG - Nurse/Tech; Complete Time: 07:24 kb 10/20 07:14 Order name: Chest Single View XRAY kb 10/20 07:14 Order name: Urine Dipstick-Ancillary (obtain specimen); Complete Time: 07:24 kb 10/20 07:14 Order name: CT Stone Protocol; Complete Time: 08:03 kb 10/20 07:17 Order name: Urine Test (obtain specimen); Complete Time: 07:19 hb EC: Rate is 73 beats/min. Rhythm is regular, Normal Sinus Rhythm. QRS [place] is Normal. AL kb interval is normal at 148 msec. QRS interval is normal at 82 msec. QT interval is normal at 378 msec. Interpreted by me. Reviewed by me. Administered Medications: 08:15 Drug: TORadol - Ketorolac 15 mg Route: IVP; Site: right antecubital; bp 08:25 Follow up: Response: No adverse reaction; Pain is decreased bp Disposition: 10/21 06:40 Co-signature as Attending Physician, Kd Fitzgerald MD I agree with the assessment and kdr plan of care. Disposition: 10/20/18 08:15 Discharged to Home. Impression: Right Flank Pain, Chest pain, unspecified - right sided. - Condition is Stable. - Discharge Instructions: Nonspecific Chest Pain, [id number], Flank Pain, [id number]. - Prescriptions for Diclofenac Sodium 75 mg Oral Tablet, Delayed Release (E.C.) - take 1 tablet by ORAL route 2 times per day As needed; 30 tablet. - Medication Reconciliation Form, Thank You Letter, Antibiotic Education, Prescription Opioid Use form. - Follow up: Emergency Department; When: As needed; Reason: Worsening of condition. Follow up: Private Physician; When: 2 - 3 days; Reason: Recheck today's complaints, Continuance of care, Re-evaluation by your physician. Signatures: Dispatcher [employer] EDNC Julienne Mcleod, VELVET WEAVER-C VELVET WEAVER-Ckb Kd Fitzgerald MD MD [facility] Andree Ortiz, TANISHA RN Donell Whitaker, TANISHA RN bp Corrections: (The following items were deleted from the chart) 10/20 08:28 08:15 10/20/2018 08:15 Discharged to Home. Impression: Right Flank Pain; Chest pain, bp unspecified - right sided. Condition is Stable. Forms are Medication Reconciliation Form, Thank You Letter, Antibiotic Education, Prescription Opioid Use. Follow up: Emergency Department; When: As needed; Reason: Worsening of condition. Follow up: Private Physician; When: 2 - 3 days; Reason: Recheck today's complaints, Continuance of care, Re-evaluation by your physician. kb
[2018-10-20 08:32] VITALS: TEMP 97.6
[2018-10-20 08:35] VITALS: BP 110/59; O2SAT 97
[2018-10-20] MEDS ORDERED: KETOROLAC 30 MG/ML INJ ONE (08:37)
--- NOTE | 2018-10-20 09:13 | RAD REPORT ---
EXAM DESCRIPTION: RAD - Chest Single View - 10/20/2018 7:38 am CLINICAL HISTORY: Abdominal pain, right flank pain COMPARISON: October 2017 TECHNIQUE: AP portable chest image was obtained 0736 hours . FINDINGS: Lungs are clear. Heart and vasculature are normal. No measurable pleural effusion and no p neumothorax. No acute bony abnormality seen. No acute aortic findings suspected. IMPRESSION: No acute cardiopulmonary process. No significant change from comparison.
[2018-10-20 10:12] LABS: Urine Blood NEGATIVE (NEG); Urine Glucose NEGATIVE (NEG); Urine Protein NEGATIVE (NEG); Urine pH 6.5 (5.0-7.0)
--- NOTE | 2018-10-20 11:21 | EKG ---
Test Date: 2018-10-20 Test Time: 07:20:39 Pick Up Attendant: JARVIS MEASUREMENT RESULTS: Intervals: Rate: 73 AL: 148 QRSD: 82 QT: 378 QTc: 416 [place]: P: 71 AL: 148 QRS: 70 T: 33 INTERPRETIVE STATEMENTS: Normal sinus rhythm with sinus arrhythmia Normal ECG Compared to ECG 11/01/2017 13:03:40 No significant changes Electronically Signed On 10-20-18 11:20:53 CDT by Toribio Higgins
== END 2018-10-20 08:28 | disposition home or self-care (01) ==
LOC: ER 07:04
DX: R10.9 Unspecified abdominal pain (principal); R07.9 Chest pain, unspecified; E11.9 Type 2 diabetes mellitus without complications; E03.9 Hypothyroidism, unspecified; Z79.84 Long term (current) use of oral hypoglycemic drugs
CPT/HCPCS: 36415; 71045; 74176; 76377; 80048; 81003; 81025; 84484; 85025; 93005; 96374; 99285

== ENCOUNTER 2019-09-05 07:31 | Emergency (ER) | payer OTHER ==
[2019-09-05 08:28] LABS: Absolute Lymphocytes (CBC) 2.5 K/uL (0.7-4.9); Hematocrit 43.7 % (36.0-45.0); Lymphocytes % 33.4 % (15.3-44.8); MPV 9.2 fL (7.6-11.3); RBC Red Blood Cell Count 4.79 M/uL (3.86-4.86)
[2019-09-05] MEDS ORDERED: ONDANSETRON 4 MG/2 ML VIAL ONE (08:28)
[2019-09-05] MEDS ORDERED: NA CHLORIDE 0.9% 1,000 ML ONE (08:28)
[2019-09-05] MEDS ORDERED: KETOROLAC 30 MG/ML INJ ONE (08:28)
[2019-09-05 08:40] LABS: Potassium 3.6 mmol/L (3.5-5.1)
[2019-09-05 09:13] LABS: Urine Blood TRACE (NEG); Urine Glucose NEGATIVE (NEG); Urine Protein NEGATIVE (NEG); Urine Specific Gravity 1.025 (1.005-1.030); Urine pH 6.5 (5.0-7.0)
--- NOTE | 2019-09-05 11:23 | RAD REPORT ---
EXAM DESCRIPTION: CT - Stone Protocol - 09/05/2019 11:03 am CLINICAL HISTORY: Abdominal pain. COMPARISON: 2019 TECHNIQUE: Computed axial tomography of the abdomen pelvis was obtained without oral or IV contrast. Lack of IV and oral contrast limits evaluation of solid organs, bowel, and vessels. Coronal reformat sherrell images were obtained and reviewed. All CT scans are performed using dose optimization technique as appropriate and may include automated exposure control or mA/KV adjustment according to patient size. FINDINGS: Small bilateral renal calculi with mild bilateral hydronephrosis unchanged from the prior exam. A ureteral calculus is not seen. A bladder calculus is not noted. The liver, spleen, pancreas and adrenals appear grossly normal There is no evidence of diverticulitis. The appendix appears normal Cholecystectomy IMPRESSION: Small bilateral renal calculi with mild bilateral hydronephrosis. A ureteral calculus is not seen. The examination was discussed with Dr. Fitzgerald Due to technical issues the examination was not available in PACs until approximately 11:02 a.m.
--- NOTE | 2019-09-05 11:33 | ER ---
Nurse's Notes [facility] Name: Eunice Griffin Age: 43 yrs Sex: Female : 1975 Arrival Date: 09/05/2019 Time: 07:34 Bed 5 Private MD: Diagnosis: Bilateral Hydronephrosis w/o obstruction, many small renal stones Presentation: 09/04 07:55 Chief complaint: Patient states: akua kidney pain since yesterday and migraine , also iw reports urinary frequency and hx of kidney stones. Coronavirus screen: Proceed with normal triage. Patient denies a cough. Patient denies shortness of breath or difficulty breathing. Patient denies measured and/or subjective temperature greater than 100.4F prior to today's visit. Patient denies travel on a cruise ship or to a country the [facility] currently lists as an affected area. Patient denies contact with known and/or suspected case of COVID-19. Ebola Screen: Patient negative for fever greater than or equal to 101.5 degrees Fahrenheit, and additional compatible Ebola Virus Disease symptoms Patient denies exposure to infectious person. Patient denies travel to an Ebola-affected area in the 21 days before illness onset. No symptoms or risks identified at this time. Initial Sepsis Screen: Does the patient meet any 2 criteria? No. Patient's initial sepsis screen is negative. Does the patient have a suspected source of infection? No. Patient's initial sepsis screen is negative. Risk Assessment: Do you want to hurt yourself or someone else? Patient reports no desire to harm self or others. Onset of symptoms was September 04, 2019. 07:55 Method Of Arrival: Ambulatory iw 07:55 Acuity: BEBO 3 iw Triage Assessment: 08:00 Headache History: The patient has had previous headaches and this one is similar to bp previous episodes. General: Appears in no apparent distress. uncomfortable, Behavior is calm, cooperative, appropriate for age. Pain: Pain currently is 7 out of 10 on a pain scale. Pain began 1 day ago. Also complains of nausea. EENT: No deficits noted. Neuro: Level of Consciousness is awake, alert, obeys commands, Oriented to person, place, time, situation, Appropriate for age. Cardiovascular: No deficits noted. Respiratory: No deficits noted. GI: No signs and/or symptoms were reported involving the gastrointestinal system. : Reports pain in bilateral flank(s), urinary frequency. Derm: No deficits noted. Musculoskeletal: No deficits noted. 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 - Social history:: Smoking status: Patient reports the use of cigarette tobacco products, smokes one-half pack cigarettes per day. Screenin:28 Abuse screen: Denies threats or abuse. Denies injuries from another. Nutritional bp screening: No deficits noted. Tuberculosis screening: No symptoms or risk factors identified. Fall Risk None identified. Assessment: 08:00 General: SEE TRIAGE NOTE. bp 08:40 Reassessment: PT TO CT. bp 11:12 Reassessment: ALL CURRENT ORDERS COMPLETED, VS STABLE. bp Vital Signs: 07:55 BP 144 / 84; Pulse 82; Resp 16; Temp 98.5; Pulse Ox 100% on R/A; Weight 83.91 kg; iw Height 5 ft. 2 in. (157.48 cm); Pain 7/10; 09:00 BP 110 / 66; Pulse 64; Resp 16; Pulse Ox 95% ; bp 11:00 BP 134 / 83; Pulse 64; Resp 16; Pulse Ox 98% ; bp 11:26 BP 134 / 75; Pulse 77; Resp 16; Pulse Ox 96% ; Pain 7/10; jl7 07:55 Body Mass Index 33.84 (83.91 kg, 157.48 cm) iw ED Course: 07:34 Patient arrived in ED. as 07:37 Kd Fitzgerald MD is Attending Physician. kdr 07:50 Donell Rivero, TANISHA is Primary Nurse. bp 07:57 Triage completed. iw 07:59 Arm band placed on. iw 08:05 Inserted saline lock: 20 gauge in right forearm, using aseptic technique. Blood bp collected. 08:28 Patient has correct armband on for positive identification. Bed in low position. Call bp light in reach. Side rails up X2. 08:53 CT Stone Protocol In Process Unspecified. EDMS 11:31 Alexa Mckeon MD is Referral Physician. kdr 12:04 IV discontinued, Pressure dressing applied. [facility] 12:22 No provider procedures requiring assistance completed. iw 12:22 IV discontinued, intact, bleeding controlled, No redness/swelling at site. Pressure iw dressing applied. Administered Medications: 08:05 Drug: TORadol - Ketorolac 15 mg Route: IVP; Site: right forearm; bp 08:05 Drug: NS 0.9% 1000 ml Route: IV; Rate: 1 bolus; Site: right forearm; bp 08:05 Drug: Zofran (Ondansetron) 4 mg Route: IVP; Site: right forearm; bp 10:30 Drug: morphine 4 mg Route: IVP; Site: right antecubital; jl7 Outcome: 11:32 Discharge ordered by MD. kdr 12:22 Discharged to home ambulatory. iw 12:22 Condition: good 12:22 Discharge instructions given to patient, Instructed on discharge instructions, follow up and referral plans. medication usage, Demonstrated understanding of instructions, follow-up care, medications, Prescriptions given X 4. 12:22 Patient left the ED. iw Signatures: Dispatcher [employer] EDMS Kd Fitzgerald MD MD kdr Rebeca Alva Irene, RN RN iw Zoe Alva 5 Hunter Bella RN RN jl7 Donell Rivero RN RN bp
--- NOTE | 2019-09-05 11:33 | EDPHYS ---
Physician Documentation [facility] Name: Eunice Griffin Age: 43 yrs Sex: Female : 1975 Arrival Date: 09/05/2019 Time: 07:34 Bed 5 Private MD: ED Physician Kd Fitzgerald HPI: 09/04 07:44 This 43 yrs old Female presents to ER via Unassigned with complaints of Flank kdr Pain, Headache. 07:44 The patient complains of pain in the left mid back and right mid back. The pain does kdr not radiate. Onset: The symptoms/episode began/occurred yesterday. Modifying factors: The symptoms are alleviated by nothing. the symptoms are aggravated by movement, palpation/percussion. Associated signs and symptoms: Pertinent positives: urinary frequency, headache, nausea, Pertinent negatives: diarrhea, dysuria, hematuria, pain radiating to the lower extremities, vomiting. Severity of pain: At its worst the pain was mild moderate just prior to arrival, in the emergency department the pain is unchanged. The patient has experienced similar episodes in the past, multiple times, Hx of kidney stones. The patient has not recently seen a physician. 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 - Social history:: Smoking status: Patient reports the use of cigarette tobacco products, smokes one-half pack cigarettes per day. ROS: 07:44 Constitutional: Negative for fever, chills, and weight loss, Eyes: Negative for injury, kdr pain, redness, and discharge, ENT: Negative for injury, pain, and discharge, Neck: Negative for injury, pain, and swelling, Cardiovascular: Negative for chest pain, palpitations, and edema, Respiratory: Negative for shortness of breath, cough, wheezing, and pleuritic chest pain, Abdomen/GI: Negative for abdominal pain, nausea, vomiting, diarrhea, and constipation, : Negative for injury, bleeding, discharge, and swelling, MS/Extremity: Negative for injury and deformity, Skin: Negative for injury, rash, and discoloration, Neuro: Negative for headache, weakness, numbness, tingling, and seizure activity. Psych: Negative for depression, anxiety, suicide ideation, homicidal ideation, and hallucinations, Allergy/Immunology: Negative for hives, rash, and allergies, Endocrine: Negative for neck swelling, polydipsia, polyuria, polyphagia, and marked weight changes, Hematologic/Lymphatic: Negative for swollen nodes, abnormal bleeding, and unusual bruising. 07:44 Back: Positive for pain at rest, flank pain, bilaterally. Exam: 07:44 Constitutional: This is a well developed, well nourished patient who is awake, alert, kdr and in no acute distress. Head/Face: Normocephalic, atraumatic. Eyes: Pupils equal round and reactive to light, extra-ocular motions intact. Lids and lashes normal. Conjunctiva and sclera are non-icteric and not injected. Cornea within normal limits. Periorbital areas with no swelling, redness, or edema. Neck: Trachea midline, no thyromegaly or masses palpated, and no cervical lymphadenopathy. Supple, full range of motion without nuchal rigidity, or vertebral point tenderness. No Meningismus. Chest/axilla: Normal chest wall appearance and motion. Nontender with no deformity. No lesions are appreciated. Cardiovascular: Regular rate and rhythm with a normal S1 and S2. No gallops, murmurs, or rubs. Normal PMI, no JVD. No pulse deficits. Respiratory: Lungs have equal breath sounds bilaterally, clear to auscultation and percussion. No rales, rhonchi or wheezes noted. No increased work of breathing, no retractions or nasal flaring. Abdomen/GI: Soft, non-tender, with normal bowel sounds. No distension or tympany. No guarding or rebound. No evidence of tenderness throughout. Skin: Warm, dry with normal turgor. Normal color with no rashes, no lesions, and no evidence of cellulitis. MS/ Extremity: Pulses equal, no cyanosis. Neurovascular intact. Full, normal range of motion. Neuro: Awake and alert, GCS 15, oriented to person, place, time, and situation. Cranial nerves II-XII grossly intact. Motor strength 5/5 in all extremities. Sensory grossly intact. Cerebellar exam normal. Normal gait. Psych: Awake, alert, with orientation to person, place and time. Behavior, mood, and affect are within normal limits. 07:44 Back: pain, that is mild, of the left mid back and right mid back, ROM is painful, with all movement, normal spinal alignment noted, CVA tenderness, that is mild, is noted bilaterally. Vital Signs: 07:55 BP 144 / 84; Pulse 82; Resp 16; Temp 98.5; Pulse Ox 100% on R/A; Weight 83.91 kg; iw Height 5 ft. 2 in. (157.48 cm); Pain 7/10; 09:00 BP 110 / 66; Pulse 64; Resp 16; Pulse Ox 95% ; bp 11:00 BP 134 / 83; Pulse 64; Resp 16; Pulse Ox 98% ; bp 11:26 BP 134 / 75; Pulse 77; Resp 16; Pulse Ox 96% ; Pain 7/10; jl7 07:55 Body Mass Index 33.84 (83.91 kg, 157.48 cm) iw MDM: 07:44 Data reviewed: vital signs, nurses notes, lab test result(s), radiologic studies. kdr Counseling: I had a detailed discussion with the patient and/or guardian regarding: the historical points, exam findings, and any diagnostic results supporting the discharge/admit diagnosis, lab results, radiology results. 11:32 Patient medically screened. [facility] 09/04 07:44 Order name: Basic Metabolic Panel; Complete Time: 09:12 kdr 09/04 07:44 Order name: CBC with Diff; Complete Time: 09:12 kdr 09/04 07:44 Order name: CT Stone Protocol kdr 09/04 08:39 Order name: Urine Dipstick--Ancillary (enter results); Complete Time: 10:05 bd 09/04 08:39 Order name: Urine --Ancillary (enter results); Complete Time: 10:05 bd 09/04 07:44 Order name: IV Saline Lock; Complete Time: 08:24 kdr 09/04 07:44 Order name: Labs collected and sent; Complete Time: 08:24 kdr 09/04 07:44 Order name: Urine Dipstick-Ancillary (obtain specimen); Complete Time: 08:25 kdr Administered Medications: 08:05 Drug: TORadol - Ketorolac 15 mg Route: IVP; Site: right forearm; bp 08:05 Drug: NS 0.9% 1000 ml Route: IV; Rate: 1 bolus; Site: right forearm; bp 08:05 Drug: Zofran (Ondansetron) 4 mg Route: IVP; Site: right forearm; bp 10:30 Drug: morphine 4 mg Route: IVP; Site: right antecubital; jl7 Disposition: 09/05/19 11:32 Discharged to Home. Impression: Bilateral Hydronephrosis w/o obstruction, many small renal stones. - Condition is Stable. - Discharge Instructions: Kidney Stones, [id number], Hydronephrosis. - Prescriptions for Tylenol- Codeine #3 300-30 mg Oral Tablet - take 2 tablets by ORAL route every 6 hours As needed; 12 tablet. Zofran 4 mg Oral Tablet - take 1 tablet by ORAL route every 4-6 hours As needed; 10 tablet. Flomax 0.4 mg Oral Capsule, Sust. Release 24 hr - take 1 capsule by ORAL route once daily 1/2 hour following the same meal each day; 10 capsule. Bactrim DS 800- 160 mg Oral Tablet - take 1 tablet by ORAL route every 12 hours for 3 days; 6 tablet. - Medication Reconciliation Form, Thank You Letter, Antibiotic Education, Prescription Opioid Use, Work release form form. - Follow up: Private Physician; When: 2 - 3 days; Reason: If symptoms return, Further diagnostic work-up, Recheck today's complaints, Continuance of care, Re-evaluation by your physician. Follow up: Alexa Mckeon MD; When: 2 - 3 days; Reason: If symptoms return, Further diagnostic work-up, Recheck today's complaints, Continuance of care, Re-evaluation by your physician. - Problem is an acute exacerbation. - Symptoms have improved. Signatures: Dispatcher [employer] EDMS Kd Fitzgerald MD MD kdr Maureen Gleason, TANISHA RN iw Hunter Bella RN RN jl7 Donell Rivero RN RN bp Corrections: (The following items were deleted from the chart) 12:22 11:32 09/05/2019 11:32 Discharged to Home. Impression: Bilateral Hydronephrosis w/o iw obstruction, many small renal stones. Condition is Stable. Forms are Medication Reconciliation Form, Thank You Letter, Antibiotic Education, Prescription Opioid Use. Follow up: Private Physician; When: 2 - 3 days; Reason: If symptoms return, Further diagnostic work-up, Recheck today's complaints, Continuance of care, Re-evaluation by your physician. Follow up: Alexa Mckeon; When: 2 - 3 days; Reason: If symptoms return, Further diagnostic work-up, Recheck today's complaints, Continuance of care, Re-evaluation by your physician. Problem is an acute exacerbation. Symptoms have improved. kdr
[2019-09-05] MEDS ORDERED: MORPHINE 4 MG/ML SYR ONE (11:34)
[2019-09-05] MEDS ORDERED: SMZ./TMP. 800/160 MG TABLET ONE (12:28)
[2019-09-05 12:43] VITALS: TEMP 98.5
[2019-09-05 12:47] VITALS: BP 134/75; O2SAT 96
== END 2019-09-05 12:22 | disposition home or self-care (01) ==
LOC: ER 07:31
DX: N13.30 Unspecified hydronephrosis (principal); N20.0 Calculus of kidney; F17.210 Nicotine dependence, cigarettes, uncomplicated; E03.9 Hypothyroidism, unspecified; E11.9 Type 2 diabetes mellitus without complications; Z88.8 Allergy status to other drugs, medicaments and biological substances
CPT/HCPCS: 85025; 80048; 36415; 81025; 81003; 76377; 74176; 96375; 96374; 99284; J7030; J2405

== ENCOUNTER 2019-12-14 09:46 | Emergency (ER) | payer OTHER ==
--- NOTE | 2019-12-14 10:40 | RAD REPORT ---
EXAM DESCRIPTION: CT - Stone Protocol - 12/14/2019 10:28 am CLINICAL HISTORY: Flank pain. FLANK PAIN COMPARISON: Stone Protocol dated 09/05/2019 TECHNIQUE: Axial images were obtained without oral or IV contrast. Lack of contrast limits solid org an and vascular assessment. The [id number] spans the entirety of the system partially obscuring uppermost abdomen and lung bases. Coronal reformatted images were obtained and reviewed. All CT scans are performed using dose optimization technique as appropriate and may include automated exposure control or mA/KV adjustment according to patient size. FINDINGS: The lower lung calderon are clear. Imaged portions of the liver and spleen show no suspicious findings on non-contrast imaging. The panc reas and adrenal glands are normal. No pathologic lymphadenopathy in the abdomen or pelvis. Punctate caliceal stones are present in both kidneys without hydronephrosis. No stone is seen within the ureters or urinary bladder. No bowel obstruction, free air, free fluid or abscess. Normal appendix noted. No significant bony abnormality. 3 cm right ovarian follicle. IMPRESSION: Punctate caliceal calculi bilaterally without hydronephrosis.
[2019-12-14] MEDS ORDERED: MORPHINE 4 MG/ML SYR ONE (10:45)
[2019-12-14] MEDS ORDERED: NA CHLORIDE 0.9% 1,000 ML ONE (10:46)
[2019-12-14] MEDS ORDERED: ONDANSETRON 4 MG/2 ML VIAL ONE (10:46)
[2019-12-14 11:05] LABS: Absolute Lymphocytes (CBC) 2.8 K/uL (0.7-4.9); Hematocrit 43.6 % (36.0-45.0); Lymphocytes % 38.5 % (15.3-44.8); MPV 9.6 fL (7.6-11.3); Potassium 3.6 mmol/L (3.5-5.1); RBC Red Blood Cell Count 4.74 M/uL (3.86-4.86)
[2019-12-14 11:30] LABS: Urine Blood NEGATIVE (NEG); Urine Glucose NEGATIVE (NEG); Urine Protein NEGATIVE (NEG)
--- NOTE | 2019-12-14 11:40 | EDPHYS ---
Physician Documentation [facility] Name: Eunice Griffin Age: 43 yrs Sex: Female : 1975 Arrival Date: 12/14/2019 Time: 09:48 Bed 14 Private MD: Trenton Ross B ED Physician Kd Fitzgerald HPI: 12/13 15:18 This 43 yrs old Female presents to ER via Ambulatory with complaints of Back kb Pain. 15:19 The patient complains of pain in the left flank and right flank. The pain does not kb radiate. Onset: The symptoms/episode began/occurred 4 day(s) ago. Modifying factors: The symptoms are alleviated by nothing. the symptoms are aggravated by palpation/percussion. Associated signs and symptoms: Pertinent positives: urinary frequency, nausea. Severity of pain: At its worst the pain was moderate in the emergency department the pain is unchanged. The patient has not experienced similar symptoms in the past. The patient has not recently seen a physician. Pt reports bilateral flank pain that started a few days ago, right greater than left. Reports frequency and difficulty starting stream. 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 - Social history:: Smoking status: Patient reports the use of cigarette tobacco products, smokes one-half pack cigarettes per day. ROS: 15:19 Constitutional: Negative for fever, chills, and weight loss, Cardiovascular: Negative kb for chest pain, palpitations, and edema, Respiratory: Negative for shortness of breath, cough, wheezing, and pleuritic chest pain, Abdomen/GI: Negative for abdominal pain, nausea, vomiting, diarrhea, and constipation, Back: Negative for injury and pain, MS/Extremity: Negative for injury and deformity, Skin: Negative for injury, rash, and discoloration, Neuro: Negative for headache, weakness, numbness, tingling, and seizure. 15:19 : Positive for flank pain, urinary frequency, difficulty urinating. Exam: 15:25 Constitutional: This is a well developed, well nourished patient who is awake, alert, kb and in no acute distress. Head/Face: Normocephalic, atraumatic. Neck: Trachea midline, no thyromegaly or masses palpated, and no cervical lymphadenopathy. Supple, full range of motion without nuchal rigidity, or vertebral point tenderness. No Meningismus. Chest/axilla: Normal chest wall appearance and motion. Nontender with no deformity. No lesions are appreciated. Cardiovascular: Regular rate and rhythm with a normal S1 and S2. No gallops, murmurs, or rubs. Normal PMI, no JVD. No pulse deficits. Respiratory: Lungs have equal breath sounds bilaterally, clear to auscultation and percussion. No rales, rhonchi or wheezes noted. No increased work of breathing, no retractions or nasal flaring. Abdomen/GI: Soft, non-tender, with normal bowel sounds. No distension or tympany. No guarding or rebound. No evidence of tenderness throughout. Skin: Warm, dry with normal turgor. Normal color with no rashes, no lesions, and no evidence of cellulitis. MS/ Extremity: Pulses equal, no cyanosis. Neurovascular intact. Full, normal range of motion. Neuro: Awake and alert, GCS 15, oriented to person, place, time, and situation. Cranial nerves II-XII grossly intact. Motor strength 5/5 in all extremities. Sensory grossly intact. Cerebellar exam normal. Normal gait. 15:25 Back: CVA tenderness, that is moderate, is noted on the right. 15:25 Back: CVA tenderness, that is mild, is noted on the left. kb Vital Signs: 09:55 BP 134 / 85; Pulse 77; Resp 16; Temp 98.3; Pulse Ox 97% on R/A; Weight 81.65 kg; Height iw 5 ft. 2 in. (157.48 cm); Pain 7/10; 11:30 BP 126 / 75; Pulse 71; Resp 15; Pulse Ox 99% on R/A; hb 09:55 Body Mass Index 32.92 (81.65 kg, 157.48 cm) iw MDM: 10:03 Patient medically screened. kb 11:07 Data reviewed: vital signs, nurses notes. Data interpreted: Pulse oximetry: on room air kb is 97 %. Interpretation: normal. Counseling: I had a detailed discussion with the patient and/or guardian regarding: the historical points, exam findings, and any diagnostic results supporting the discharge/admit diagnosis, lab results, radiology results, the need for outpatient follow up, a family practitioner, to return to the emergency department if symptoms worsen or persist or if there are any questions or concerns that arise at home. 12/13 10:12 Order name: Basic Metabolic Panel; Complete Time: 11:07 kb 12/13 10:12 Order name: CBC with Diff; Complete Time: 11:07 kb 12/13 10:12 Order name: CT Stone Protocol; Complete Time: 10:41 kb 12/13 11:19 Order name: Urine Dipstick--Ancillary (enter results); Complete Time: 11:39 hb 12/13 10:12 Order name: IV Saline Lock; Complete Time: 10:46 kb 12/13 10:12 Order name: Labs collected and sent; Complete Time: 10:46 kb 12/13 11:11 Order name: Urine Dipstick-Ancillary (obtain specimen); Complete Time: 11:18 kb Administered Medications: 10:46 Drug: NS 0.9% 1000 ml Route: IV; Rate: 1000 ml; Site: right antecubital; hb 10:46 Drug: Zofran (Ondansetron) 4 mg Route: IVP; Site: right antecubital; hb 11:18 Follow up: Response: No adverse reaction hb 10:46 Drug: morphine 4 mg Route: IVP; Site: right antecubital; hb 11:18 Follow up: Response: No adverse reaction hb Disposition: 12:31 Co-signature as Attending Physician, Kd Fitzgerald MD I agree with the assessment and kdr plan of care. Disposition: 12/14/19 11:39 Discharged to Home. Impression: Flank Pain. - Condition is Stable. - Discharge Instructions: Flank Pain, [id number]. - Medication Reconciliation Form, Thank You Letter, Antibiotic Education, Prescription Opioid Use form. - Follow up: Emergency Department; When: As needed; Reason: Worsening of condition. Follow up: Private Physician; When: 2 - 3 days; Reason: Recheck today's complaints, Continuance of care, Re-evaluation by your physician. Signatures: Dispatcher [employer] EDMS Julienne Mcleod, THEOLOGY PROFESSOR-C THEOLOGY PROFESSOR-Ckb Kd Fitzgerald MD MD kdr Maureen Gleason, RN RN iw Andree Ortiz RN RN hb Corrections: (The following items were deleted from the chart) 11:55 11:39 12/14/2019 11:39 Discharged to Home. Impression: Flank Pain. Condition is Stable. hb Forms are Medication Reconciliation Form, Thank You Letter, Antibiotic Education, Prescription Opioid Use. Follow up: Emergency Department; When: As needed; Reason: Worsening of condition. Follow up: Private Physician; When: 2 - 3 days; Reason: Recheck today's complaints, Continuance of care, Re-evaluation by your physician. kb
--- NOTE | 2019-12-14 11:40 | ER ---
Nurse's Notes [facility] Name: Eunice Griffin Age: 43 yrs Sex: Female : 1975 Arrival Date: 12/14/2019 Time: 09:48 Bed 14 Private MD: Trenton Ross B Diagnosis: Flank Pain Presentation: 12/13 09:55 Chief complaint: Patient states: is having akua kidney pain radiating to right abdomen, iw started yesterday, worse today, hx of kidney stones, feels similar. Coronavirus screen: At this time, the client does not indicate any symptoms associated with coronavirus-19. Ebola Screen: Patient negative for fever greater than or equal to 101.5 degrees Fahrenheit, and additional compatible Ebola Virus Disease symptoms Patient denies exposure to infectious person. Patient denies travel to an Ebola-affected area in the 21 days before illness onset. No symptoms or risks identified at this time. Initial Sepsis Screen: Does the patient meet any 2 criteria? No. Patient's initial sepsis screen is negative. Does the patient have a suspected source of infection? No. Patient's initial sepsis screen is negative. Risk Assessment: Do you want to hurt yourself or someone else? Patient reports no desire to harm self or others. Onset of symptoms was December 13, 2019. 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 - Social history:: Smoking status: Patient reports the use of cigarette tobacco products, smokes one-half pack cigarettes per day. Screenin:54 Abuse screen: Denies threats or abuse. Denies injuries from another. Nutritional hb screening: No deficits noted. Tuberculosis screening: No symptoms or risk factors identified. Fall Risk None identified. Assessment: 10:15 General: Appears in no apparent distress. Behavior is calm, cooperative. Pain: Pain hb currently is 7 out of 10 on a pain scale. Neuro: Level of Consciousness is awake, alert, obeys commands, Oriented to person, place, time, situation. Cardiovascular: Capillary refill < 3 seconds Patient's skin is warm and dry. Respiratory: Respiratory effort is even, unlabored, Respiratory pattern is regular, symmetrical. GI: Reports bilateral mid back pain that radiates to flanks and abdomen. : No signs and/or symptoms were reported regarding the genitourinary system. EENT: No signs and/or symptoms were reported regarding the EENT system. Derm: Skin is pink, warm \T\ dry. Musculoskeletal: Reports bilateral mid back pain that radiates to flanks and abdomen. 11:13 Reassessment: Patient appears in no apparent distress at this time. Patient and/or hb family updated on plan of care and expected duration. Pain level reassessed. Patient is alert, oriented x 3, equal unlabored respirations, skin warm/dry/pink. Vital Signs: 09:55 BP 134 / 85; Pulse 77; Resp 16; Temp 98.3; Pulse Ox 97% on R/A; Weight 81.65 kg; Height iw 5 ft. 2 in. (157.48 cm); Pain 7/10; 11:30 BP 126 / 75; Pulse 71; Resp 15; Pulse Ox 99% on R/A; hb 09:55 Body Mass Index 32.92 (81.65 kg, 157.48 cm) iw ED Course: 09:48 Patient arrived in ED. mr 09:48 Trenton Ross MD is Private Physician. mr 09:56 Triage completed. iw 09:57 Arm band placed on. iw 09:59 Maureen Gleason, TANISHA is Primary Nurse. iw 10:02 Kd Fitzgerald MD is Attending Physician. kdr 10:02 Patient has correct armband on for positive identification. Bed in low position. Call hb light in reach. 10:03 Julienne Mcleod FNP-C is PHCP. kb 10:28 Andree Ortiz, TANISHA is Primary Nurse. hb 10:28 CT Stone Protocol In Process Unspecified. EDMS 10:42 Inserted saline lock: 20 gauge in right antecubital area, using aseptic technique. hb ,using aseptic technique. by Silvina GARAY Blood collected. 11:45 No provider procedures requiring assistance completed. IV discontinued, intact, hb bleeding controlled, No redness/swelling at site. Administered Medications: 10:46 Drug: NS 0.9% 1000 ml Route: IV; Rate: 1000 ml; Site: right antecubital; hb 10:46 Drug: Zofran (Ondansetron) 4 mg Route: IVP; Site: right antecubital; hb 11:18 Follow up: Response: No adverse reaction hb 10:46 Drug: morphine 4 mg Route: IVP; Site: right antecubital; hb 11:18 Follow up: Response: No adverse reaction hb Outcome: 11:39 Discharge ordered by . kb 11:45 Discharged to home ambulatory. hb 11:45 Condition: stable 11:45 Discharge instructions given to patient, Instructed on discharge instructions, follow up and referral plans. medication usage, Demonstrated understanding of instructions, follow-up care, medications. 11:55 Patient left the ED. hb Signatures: Dispatcher [employer] EDMS Julienne Mcleod, BLOOM CONVEYOR OPERATOR-C BLOOM CONVEYOR OPERATOR-Ckb Kd Fitzgerald MD MD kdr Rivera Karen mr Maureen Gleason RN RN iw Baxter, Heather, RN RN hb
[2019-12-14 12:34] VITALS: BP 134/85; TEMP 98.3; O2SAT 97
== END 2019-12-14 11:55 | disposition home or self-care (01) ==
LOC: ER 09:46
DX: R10.9 Unspecified abdominal pain (principal); E11.9 Type 2 diabetes mellitus without complications; E03.9 Hypothyroidism, unspecified; F17.210 Nicotine dependence, cigarettes, uncomplicated; Z88.1 Allergy status to other antibiotic agents
CPT/HCPCS: 85025; 80048; 36415; 81003; 76377; 74176; 96375; 96374; 99284; J7030; J2405

== ENCOUNTER → 2023-06-16 | Emergency (ER) | payer BC ==
--- OUTSIDE RECORDS SUMMARY | 2023-06-16 15:34 | XMS REPORT | Continuity of Care Document ---
Author Name Unknown Address [address] [facility] [address]. [address] [place] [address] [facility] thconnect Address [address] [facility]. [address] [place] [address] Care Team Providers Care Ve Teacher Name Role Phone Pcp, Patient Does Not Have A Primary Care Physic rekha [email or web address] Attending Clinician Unavaila MAXX Davies Attending Clinician UnavailMILEY Godoy Attending Clinician Unavailable Beatrice ASSEMBLY MEMBERMiley Gleason Attending Clinician [phone] Lon Wilkinson Attending Clinician [phone] Doctor Unassigned, [place] Attending Clinician U navailLON De Jesus Attending Clinician Unavailable Lab, Adc Fam Pob I Attending Clinician Unavailab le [email or web address] Admitting Clinician Unavaila ble Payers Payer Name Policy Type Policy Number Effective Date Expirati on Date Source [facility] - OUT OF STATE [id number] 2020 00:00:00 Problems Condition Name Condition Details Condition Category Status Onset Date Resolution Date Last Treatment Date Treating Clinician Comments Source Acute pain of left shoulder Acute pain of left shoulder Disease Active 818 00:00: 00 Nancy odonnell [facility] Acute pain of left shoulder Acute pain of left shoulder Disease Active 11-13 00:00: 00 [facility] Allergies, Adverse Reactions, Alerts Allergy Name Allergy Type Status Severity Reaction(s) Onset Date Inactive Date Treating Clinician Comments Source Nitrofur antoin Monohyd/ M-Cryst Propensi ty to adverse reaction s Active Hives 10-30 00:00: 00 [facility] NITROFUR ANTOIN MONOHYD/ M-CRYST DRUG Active Med Hives 10-30 00:00: 00 [facility] NO KNOWN ALLERGIE S Drug Class Active [facility] Social History Social Habit Start Date Stop Date Quantity Comments Source History of tobacco use Light tobacco smoker [facility] Exposure to SARS-CoV-2 (event) 2021-02-18 00:00:00 2021-03-20 09:50:00 Not sure [facility] History of Social function 2020-11-02 00:00:00 2020-11-02 00:00:00 [facility] Alcohol intake 2020-10-30 00:00:00 2020-10-30 00:00:00 Current non-drinker of alcohol (finding) [facility] Tobacco use and exposure 2016-11-13 00:00:00 2016-11-13 00:00:00 Smokeless tobacco non-user [facility] Sex Ass[birth year] At 1975 00:00:00 1975 00:00:00 [facility] Smoking Status Start Date Stop Date Source Light tobacco smoker 2016-11-13 00:00:00 [facility] Medications Ordered Medication Name Filled Medication Name Start Date Stop Date Current Medication? Ordering Clinician Indication Dosage Frequency Signature (SIG) Comments Components Source acetaminoph en (TYLENOL) tablet 650 mg 2020-03 16:45: 00 03-20 15:50 :25 No 650mg [facility] amoxicillin -clavulanat e 875-125 mg per tablet 2020-03 00:00: 00 03-31 05:59 :00 No [id number] 1{tbl} Take 1 tablet by mouth 2 (two) times daily for 10 days. [facility] fluconazole (DIFLUCAN) 150 mg tablet 2020-03 2 00:00: 00 03-21 05:59 :00 No [id number] 150mg Take 1 tablet by mouth once now for 1 dose. [facility] levothyroxi ne 125 mcg tablet 10-28 00:00: 00 Yes [facility] levothyroxi ne 125 mcg tablet 10-28 00:00: 00 Yes [facility] levothyroxi ne 125 mcg tablet 10-28 00:00: 00 Yes [facility] levothyroxi ne 125 mcg tablet 10-28 00:00: 00 Yes [facility] levothyroxi ne 125 mcg tablet 10-28 00:00: 00 Yes [facility] etodolac 500 mg tablet 11-09 00:00: 00 Yes [facility] methylPREDN ISolone 4 mg tablets 11-09 00:00: 00 Yes [facility] etodolac 500 mg tablet 11-09 00:00: 00 Yes [facility] methylPREDN ISolone 4 mg tablets 11-09 00:00: 00 Yes [facility] etodolac 500 mg tablet 11-09 00:00: 00 Yes [facility] methylPREDN ISolone 4 mg tablets 11-09 00:00: 00 Yes [facility] etodolac 500 mg tablet 11-09 00:00: 00 Yes [facility] methylPREDN ISolone 4 mg tablets 11-09 00:00: 00 Yes [facility] etodolac 500 mg tablet 11-09 00:00: 00 Yes [facility] methylPREDN ISolone 4 mg tablets 11-09 00:00: 00 Yes [facility] etodolac 500 mg tablet 11-09 00:00: 00 Yes [facility] methylPREDN ISolone 4 mg tablets 11-09 00:00: 00 Yes [facility] etodolac 500 mg tablet 11-09 00:00: 00 Yes [facility] methylPREDN ISolone 4 mg tablets 11-09 00:00: 00 Yes [facility] TRULICITY 1.5 mg/0.5 mL PnIj 11-08 00:00: 00 Yes [facility] cyclobenzap rine 10 mg tablet 11-08 00:00: 00 Yes [facility] TRULICITY 1.5 mg/0.5 mL PnIj 11-08 00:00: 00 Yes [facility] cyclobenzap rine 10 mg tablet 11-08 00:00: 00 Yes [facility] TRULICITY 1.5 mg/0.5 mL PnIj 11-08 00:00: 00 Yes [facility] cyclobenzap rine 10 mg tablet 11-08 00:00: 00 Yes [facility] TRULICITY 1.5 mg/0.5 mL PnIj 11-08 00:00: 00 Yes [facility] cyclobenzap rine 10 mg tablet 11-08 00:00: 00 Yes [facility] TRULICITY 1.5 mg/0.5 mL PnIj 11-08 00:00: 00 Yes [facility] cyclobenzap rine 10 mg tablet 11-08 00:00: 00 Yes [facility] TRULICITY 1.5 mg/0.5 mL PnIj 11-08 00:00: 00 Yes [facility] cyclobenzap rine 10 mg tablet 11-08 00:00: 00 Yes [facility] TRULICITY 1.5 mg/0.5 mL PnIj 11-08 00:00: 00 Yes [facility] cyclobenzap rine 10 mg tablet 11-08 00:00: 00 Yes [facility] buPROPion XL 300 mg 24 hr tablet 10-15 00:00: 00 Yes [facility] metFORMIN 1,000 mg tablet 10-15 00:00: 00 Yes [facility] buPROPion XL 300 mg 24 hr tablet 10-15 00:00: 00 Yes [facility] metFORMIN 1,000 mg tablet 10-15 00:00: 00 Yes [facility] buPROPion XL 300 mg 24 hr tablet 10-15 00:00: 00 Yes [facility] metFORMIN 1,000 mg tablet 10-15 00:00: 00 Yes [facility] buPROPion XL 300 mg 24 hr tablet 10-15 00:00: 00 Yes [facility] metFORMIN 1,000 mg tablet 10-15 00:00: 00 Yes [facility] buPROPion XL 300 mg 24 hr tablet 10-15 00:00: 00 Yes [facility] metFORMIN 1,000 mg tablet 10-15 00:00: 00 Yes [facility] buPROPion XL 300 mg 24 hr tablet 10-15 00:00: 00 Yes [facility] metFORMIN 1,000 mg tablet 10-15 00:00: 00 Yes [facility] buPROPion XL 300 mg 24 hr tablet 10-15 00:00: 00 Yes [facility] metFORMIN 1,000 mg tablet 10-15 00:00: 00 Yes [facility] PNEUMOVAX 23 25 mcg/0.5 mL Syrg 09-10 00:00: 00 Yes [facility] PNEUMOVAX 23 25 mcg/0.5 mL Syrg 09-10 00:00: 00 Yes [facility] PNEUMOVAX 23 25 mcg/0.5 mL Syrg 09-10 00:00: 00 Yes [facility] PNEUMOVAX 23 25 mcg/0.5 mL Syrg 09-10 00:00: 00 Yes [facility] PNEUMOVAX 23 25 mcg/0.5 mL Syrg 0 09-10 00:00: 00 Yes [facility] PNEUMOVAX 23 25 mcg/0.5 mL Syrg 0 09-10 00:00: 00 Yes [facility] PNEUMOVAX 23 25 mcg/0.5 mL Syrg 09-10 00:00: 00 Yes [facility] promethazin e-codeine 6.25-10 mg/5 mL syrup 0 08-25 00:00: 00 Yes [facility] promethazin e-codeine 6.25-10 mg/5 mL syrup 0 08-25 00:00: 00 Yes [facility] promethazin e-codeine 6.25-10 mg/5 mL syrup 0 08-25 00:00: 00 Yes [facility] promethazin e-codeine 6.25-10 mg/5 mL syrup 0 08-25 00:00: 00 Yes [facility] promethazin e-codeine 6.25-10 mg/5 mL syrup 0 08-25 00:00: 00 Yes [facility] promethazin e-codeine 6.25-10 mg/5 mL syrup 0 08-25 00:00: 00 Yes [facility] promethazin e-codeine 6.25-10 mg/5 mL syrup 0 08-25 00:00: 00 Yes [facility] Vital Signs Vital Name Observation Time Observation Value Comments S ource Systolic blood pressure 2021-03-20 15:56:00 144 mm[Hg] [facility] Diastolic blood pressure 2021-03-20 15:56:00 83 mm[Hg] [facility] Heart rate 2021-03-20 15:35:00 83 /min [facility] Body temperature 2021-03-20 15:35:00 36.33 Myesha [facility] Respiratory rate 2021-03-20 15:35:00 18 /min [facility] Body height 2021-03-20 15:35:00 157.5 cm [facility] Body weight 2021-03-20 15:35:00 84.188 kg [facility] BMI 2021-03-20 15:35:00 33.95 kg/m2 [facility] Oxygen saturation in Arterial blood by Pulse oximetry 2021-03-20 15:35:00 97 /min [facility] Systolic blood pressure 2020-10-30 16:34:00 136 mm[Hg] [facility] Diastolic blood pressure 2020-10-30 16:34:00 86 mm[Hg] [facility] Heart rate 2020-10-30 16:29:00 103 /min [facility] Body temperature 2020-10-30 16:29:00 38.56 Myesha [facility] Respiratory rate 2020-10-30 16:29:00 18 /min [facility] Body height 2020-10-30 16:29:00 157.5 cm [facility] Body weight 2020-10-30 16:29:00 81.647 kg [facility] BMI 2020-10-30 16:29:00 32.92 kg/m2 [facility] Oxygen saturation in Arterial blood by Pulse oximetry 2020-10-30 16:29:00 95 /min [facility] Procedures Procedure Date / Time Performed Performing Clinicia n Source CONSENT/REFUSAL FOR DIAGNOSIS AND TREATMENT 2020-11-02 05:01:00 Doctor Unassigned, [place] [facility] Encounters Start Date/Time End Date/Time Encounter Type Admission Type Attending Clinicians Care Facility Care Department Encounter ID Source 2023-01-27 00:00:00 2023-01-27 00:00:00 Outpatient [email or web address] [facility] [id number] [facility] 2022-10-30 00:00:00 2022-10-30 00:00:00 Outpatient MAXX YANES [facility] [id number] [facility] 2022-10-02 00:00:00 2022-10-02 00:00:00 Outpatient MAXX YANES [facility] [id number] [facility] 2021-03-20 09:00:00 2021-03-20 10:13:44 Outpatient R BEATRICE MILEY [facility] [id number] [facility] 2021-03-20 09:00:00 2021-03-20 09:20:00 Urgent Care BeatriceNeelanish Teeherman, [facility] 1..840.114 [id number] [facility] 2020-11-02 10:30:00 2020-11-02 10:30:00 Outpatient R [facility] [id number] [facility] 2020-11-02 00:00:00 2020-11-02 00:00:00 Orders Only Doctor Unassigned, [place] [facility] 1..840.114 350.1.13.10 [id number] [facility] 2020-11-01 00:00:00 2020-11-01 00:00:00 Patient Secure Msg Doctor Unassigned, [place] [facility] 1..840.114 350.1.13.10 [id number] [facility] 2020-10-30 11:17:17 2020-10-30 11:37:17 Urgent Care BeatriceNeelanish [place], [facility] 1..840.114 [id number] [facility] 2020-10-30 11:20:00 2020-10-30 11:20:00 Outpatient R [facility] [id number] [facility] 2020-10-30 00:00:00 2020-10-30 00:00:00 Telephone [place], [facility] 1.840.114 [id number] [id number] [facility] 2020-03-18 17:34:34 2020-03-18 17:54:34 Laboratory Only Lab, Adc Fam Pob I Beatrice [facility] .840.114 [id number] [id number] [facility] 2020-03-18 17:40:00 2020-03-18 17:40:00 Outpatient R BEATRICE [facility] [id number] [facility] 2020-03-18 00:00:00 2020-03-18 00:00:00 Letter (Out) Doctor Unassigned, [place] [facility] 1.840.114 350.1.13.10 [id number] [facility]
--- NOTE | 2023-06-16 16:58 | RAD REPORT ---
EXAM DESCRIPTION: RAD - Knee Left 3 View - 06/16/2023 4:45 pm CLINICAL HISTORY: Left knee pain FINDINGS: No fracture or dislocation is seen.
--- NOTE | 2023-06-16 17:02 | EDPHYS ---
Physician Documentation [facility] Name: Eunice Griffin Age: 47 yrs Sex: Female : 1975 Arrival Date: 06/16/2023 Time: 15:29 Bed 9 Private MD: ED Physician Grupo Novak HPI: 06/15 15:49 This 47 yrs old Female presents to ER via Unassigned with complaints of Fall ec2 Injury. 15:49 Patient arrives today for left knee pain. States that she fell and landed on her left ec2 knee 3 days ago. No LOC, no head strike, no neck pain.. Historical: - Allergies: 15:49 Latex; ld1 15:49 Macrodantin; ld1 - PMHx: 15:49 borderline DM; Diabetes - NIDDM; Hypothyroidism; ld1 - PSHx: 15:49 section; Cholecystectomy; Ligation of fallopian tube; neck surgery; uterine ld1 ablation; - Immunization history:: Adult Immunizations up to date. - Social history:: Smoking status: unknown. ROS: 15:49 Constitutional: as per hpi ec2 Exam: 15:49 Constitutional: GEN: NAD Head: atraumatic Eyes: EOMI Ears: External ears are ec2 normal. CV: regular rate LUNGS: no respiratory distress ABD: non-distended SKIN: Slight amount of ecchymosis to the anterior knee, good range of motion, no obvious deformity, no significant joint effusion. NEURO: moves all extremities equally Vital Signs: 16:10 BP 126 / 70; Pulse 83; Resp 17; Temp 98.2(TE); Pulse Ox 98% on R/A; kd3 17:10 BP 111 / 78; Pulse 84; Resp 16; Pulse Ox 99% on R/A; kd3 MDM: 15:44 Patient medically screened. ec2 15:49 Data reviewed: vital signs. ED course: Patient arrives today for evaluation of a knee ec2 injury. Examination remarkable for well-appearing nontoxic dividual who has skin and MSK findings as above. Will obtain radiograph of the left knee. Evaluating for bony fracture, additionally considering contusion, sprain.. 17:01 ED course: Knee x-ray shows no fracture. Will discharge home in Efrain wrap, instructed on ec2 [id number] medications. Suspect bony contusion. Return precautions given.. 06/15 15:49 Order name: Knee Left 3 View XRAY; Complete Time: 17:01 ec2 06/15 17:05 Order name: Efrain Wrap; Complete Time: 17:10 ec2 Administered Medications: No medications were administered Disposition Summary: 06/16/23 17:01 Discharge Ordered Notes: Location: Home ec2 Problem: an ongoing problem ec2 Symptoms: are unchanged ec2 Condition: Stable ec2 Diagnosis - Pain in left knee ec2 Followup: ec2 - With: Private Physician - When: - Reason: Re-evaluation by your physician Discharge Instructions: - Discharge Summary Sheet ec2 - Acute Knee Pain, Adult ec2 Forms: - Medication Reconciliation Form ec2 - Thank You Letter ec2 - Antibiotic Education ec2 - Prescription Opioid Use ec2 - Patient Portal Instructions ec2 - Leadership Thank You Letter ec2 Prescriptions: - methocarbamol 500 mg Oral tablet - take 2 tablets ORAL route 4 times per day; 20 tablet; Refills: 0, Product ec2 Selection Permitted Signatures: Dispatcher [employer] EDCornelia Wild RN RN ld1 Sonali Barroso RN RN kd3 Grupo Novak MD MD ec2
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
[2023-06-16 17:44] VITALS: BP 111/78; TEMP 98.2; O2SAT 99
== END ==
LOC: ER 15:29
DX: M25.562 Pain in left knee (principal); W18.30XA Fall on same level, unspecified, initial encounter; Z88.1 Allergy status to other antibiotic agents; Z91.040 Latex allergy status

== ENCOUNTER 2023-07-18 16:10 | Emergency (ER) | payer BC ==
--- OUTSIDE RECORDS SUMMARY | 2023-07-18 16:12 | XMS REPORT | Continuity of Care Document ---
Author Name Unknown Address [address] [facility] [address] [place] [address] [facility] thconnect Address [address] [facility]. [address] [place] [address] Care Team Providers Care Fermentologist Name Role Phone Pcp, Patient Does Not Have A Primary Care Physic rekha [email or web address] Attending Clinician Unavaila MAXX Davies Attending Clinician UnavailMILEY Godoy Attending Clinician Unavailable Yoni SUPERVISOR WET POURMiley Gleason Attending Clinician [phone] Lon Wilkinson Attending Clinician Doctor Unassigned, [place] Attending Clinician U navailLON De Jesus Attending Clinician Unavailable Lab, Adc Fam Pob I Attending Clinician Unavailab le [email or web address] Admitting Clinician Unavaila ble Payers Payer Name Policy Type Policy Number Effective Date Expirati on Date Source [facility] - OUT OF STATE [id number] 2020 00:00:00 Problems Condition Name Condition Details Condition Category Status Onset Date Resolution Date Last Treatment Date Treating Clinician Comments Source Acute pain of left shoulder Acute pain of left shoulder Disease Active 18 00:00: 00 [facility] Acute pain of left shoulder Acute pain of left shoulder Disease Active 11-13 00:00: 00 [facility] Allergies, Adverse Reactions, Alerts Allergy Name Allergy Type Status Severity Reaction(s) Onset Date Inactive Date Treating Clinician Comments Source Nitrofur antoin Monohyd/ M-Cryst Propensi ty to adverse reaction s Active Hives 10-30 00:00: 00 [facility] NITROFUR ANTOIN MONOHYD/ M-CRYST DRUG Active Med Hives 10-30 00:00: 00 [facility] NO KNOWN ALLERGIE S Drug Class Active [facility] Social History Social Habit Start Date Stop Date Quantity Comments Source History of tobacco use Light tobacco smoker [facility] to SARS-CoV-2 (event) 2021-02-18 00:00:00 2021-03-20 09:50:00 Not sure [facility] History of Social function 2020-11-02 00:00:00 2020-11-02 00:00:00 [facility] Alcohol intake 2020-10-30 00:00:00 2020-10-30 00:00:00 Current non-drinker of alcohol (finding) [facility] Tobacco use and exposure 2016-11-13 00:00:00 2016-11-13 00:00:00 Smokeless tobacco non-user [facility] Sex Ass[birth year] At 1975 00:00:00 1975 00:00:00 [facility] Smoking Status Start Date Stop Date Source Light tobacco smoker 2016-11-13 00:00:00 [facility] Medications Ordered Medication Name Filled Medication Name Start Date Stop Date Current Medication? Ordering Clinician Indication Dosage Frequency Signature (SIG) Comments Components Source acetaminoph en (TYLENOL) tablet 650 mg 2020-03 16:45: 00 03-20 15:50 :25 No 650mg [facility] amoxicillin -clavulanat e 875-125 mg per tablet 2020-03 00:00: 00 03-31 05:59 :00 No [id number] 1{tbl} Take 1 tablet by mouth 2 (two) times daily for 10 days. [facility] fluconazole (DIFLUCAN) 150 mg tablet 2020-03 00:00: 00 03-21 05:59 :00 No [id number] 150mg Take 1 tablet by mouth once now for 1 dose. [facility] levothyroxi ne 125 mcg tablet 10-28 00:00: 00 Yes [facility] etodolac 500 mg tablet 11-09 00:00: 00 Yes [facility] methylPREDN ISolone 4 mg tablets 11-09 00:00: 00 Yes [facility] cyclobenzap rine 10 mg tablet 11-08 00:00: 00 Yes [facility] TRULICITY 1.5 mg/0.5 mL PnIj 11-08 00:00: 00 Yes [facility] buPROPion XL 300 mg 24 hr tablet 10-15 00:00: 00 Yes [facility] metFORMIN 1,000 mg tablet 10-15 00:00: 00 Yes [facility] PNEUMOVAX 23 25 mcg/0.5 mL Syrg 09-10 00:00: 00 Yes [facility] promethazin e-codeine 6.25-10 mg/5 mL syrup 08-25 00:00: 00 Yes [facility] Vital Signs Vital Name Observation Time Observation Value Comments S alfonso Systolic blood pressure 2021-03-20 15:56:00 144 mm[Hg[facility] Diastolic blood pressure 2021-03-20 15:56:00 83 mm[Hg] [facility] Heart rate 2021-03-20 15:35:00 83 /min [facility] Body temperature 2021-03-20 15:35:00 36.33 Myesha [facility] Respiratory rate 2021-03-20 15:35:00 18 /min [facility] Body height 2021-03-20 15:35:00 157.5 cm [facility] Body weight 2021-03-20 15:35:00 84.188 kg [facility] BMI 2021-03-20 15:35:00 33.95 kg/m2 [facility] Oxygen saturation in Arterial blood by Pulse oximetry 2021-03-20 15:35:00 97 /min [facility] Diastolic blood pressure 2020-10-30 16:34:00 86 mm[Hg] [facility] Systolic blood pressure 2020-10-30 16:34:00 136 mm[Hg] [facility] Heart rate 2020-10-30 16:29:00 103 /min [facility] Body temperature 2020-10-30 16:29:00 38.56 Myesha [facility] Respiratory rate 2020-10-30 16:29:00 18 /min [facility] Body height 2020-10-30 16:29:00 157.5 cm [facility] Body weight 2020-10-30 16:29:00 81.647 kg [facility] BMI 2020-10-30 16:29:00 32.92 kg/m2 [facility] Oxygen saturation in Arterial blood by Pulse oximetry 2020-10-30 16:29:00 95 /min [facility] Procedures Procedure Date / Time Performed Performing Clinicia n Source CONSENT/REFUSAL FOR DIAGNOSIS AND TREATMENT 2020-11-02 05:01:00 Doctor Unassigned, [place] [facility] Encounters Start Date/Time End Date/Time Encounter Type Admission Type Attending Clinicians Care Facility Care Department Encounter ID Source 2023-01-27 00:00:00 2023-01-27 00:00:00 Outpatient [email or web address]_S [facility] [id number] [facility] 2022-10-30 00:00:00 2022-10-30 00:00:00 Outpatient MAXX YANES [facility] [id number] [facility] 2022-10-02 00:00:00 2022-10-02 00:00:00 Outpatient MAXX YANES [facility] [id number] [facility] 2021-03-20 09:00:00 2021-03-20 10:13:44 Outpatient R MILEY BARRON [facility] [id number] [facility] 2021-03-20 09:00:00 2021-03-20 09:20:00 Urgent Care Miley Barron, [facility] 1..840.114 [id number] [id number] [facility] 2020-11-02 10:30:00 2020-11-02 10:30:00 Outpatient R [facility] [id number] [facility] 2020-11-02 00:00:00 2020-11-02 00:00:00 Orders Only Doctor Unassigned, [place] [facility] 1.840.114 [id number] [id number] [facility] 2020-11-01 00:00:00 2020-11-01 00:00:00 Patient Secure Msg Doctor Unassigned, [place] [facility] 1..840.114 350.1.13.10 [id number] [id number] [facility] 2020-10-30 11:17:17 2020-10-30 11:37:17 Urgent Care Miley Barron [facility] 1.840.114 [id number] [facility] 2020-10-30 11:20:00 2020-10-30 11:20:00 Outpatient R LON VASQUEZ [facility] [id number] [facility] 2020-10-30 00:00:00 2020-10-30 00:00:00 Telephone Yoni Miley [facility] 1.114 [id number] [id number] [facility] 2020-03-18 17:34:34 2020-03-18 17:54:34 Laboratory Only Lab, Adc Fam Pob Miely Martínez [facility] .114 [id number] [id number] [facility] 2020-03-18 17:40:00 2020-03-18 17:40:00 Outpatient R MILEY BARRON [facility] [id number] [facility] 2020-03-18 00:00:00 2020-03-18 00:00:00 Letter (Out) Doctor Unassigned, [place] [facility] 1.840.114 350.1.13.10 [id number] [id number] [facility]
[2023-07-18] MEDS ORDERED: ONDANSETRON 4 MG/2 ML VIAL ONE (17:05)
[2023-07-18] MEDS ORDERED: KETOROLAC 30 MG/ML INJ ONE (17:05)
[2023-07-18] MEDS ORDERED: FAMOTIDINE 20 MG/2 ML VIAL IV ONE (17:05)
[2023-07-18] MEDS ORDERED: NA CHLORIDE 0.9% 1,000 ML ONE (17:05)
[2023-07-18 17:33] LABS: Absolute Eosinophils 0.2 K/uL (0-0.5); Absolute Lymphocytes (CBC) 2.2 K/uL (0.7-4.9); Absolute Monocytes 0.6 K/uL (0.1-1.3); Absolute Neutrophil 5.4 K/uL (1.8-8.0); Basophils % 0.5 % (0-1.3); Hematocrit 40.1 % (36.0-45.0); Hemoglobin 13.3 g/dL (12.0-15.0); Lymphocytes % 26.1 % (15.3-44.8); MCH 30.3 pg (27.0-35.0); MCHC 33.1 g/dL (32.0-36.0); MCV 91.5 fL (80-100); MPV 8.8 fL (7.6-11.3); Monocytes % 7.6 % (3.3-12.3); Neutrophils % 63.8 % (41.7-73.7); Platelets 323 thou/uL (152-406); RBC Red Blood Cell Count 4.38 M/uL (3.86-4.86); Red Cell Distribution Width 14.7 % (12.1-15.2)
[2023-07-18 17:43] LABS: Specific Gravity 1.012 (1.005-1.030); Urine Bacteria <20 /HPF (<20); Urine Bilirubin NEGATIVE (Negative); Urine Blood Negative (Negative); Urine Clarity Turbid (Clear); Urine Color Light-Yellow (Yellow); Urine Culture Reflex Order NOT NEEDED; Urine Glucose NEGATIVE (Negative); Urine Ketones NEGATIVE (Negative); Urine Microscopic Reflex YN ORDER UMIC; Urine Mucus 4+ /HPF (None Seen); Urine Nitrite NEGATIVE (Negative); Urine Protein NEGATIVE (Negative); Urine RBC <5 /HPF (None Seen); Urine Urobilinogen Normal (Normal); Urine WBC <5 /HPF (<5)
[2023-07-18 17:51] LABS: Albumin 3.6 g/dL (3.4-5.0); Albumin/Globulin Ratio 1.1 (1.1-1.8); Anion Gap 6.7 mEq/L (5.0-15.0); Bilirubin Total 0.5 mg/dL (0.2-1.0); Globulin 3.4 g/dL (2.3-3.5); Potassium 3.7 mEq/L (3.5-5.1)
--- NOTE | 2023-07-18 18:31 | RAD REPORT ---
EXAM DESCRIPTION: CTAbdomen Pelvis W Contrast - 07/18/2023 6:20 pm CLINICAL HISTORY: ABD PAIN COMPARISON: Abdomen Pelvis W Contrast dated 12/20/2022; Abdomen Pelvis W Contrast dated 10/18/2022 ; Abdomen Pelvis W Contrast dated 06/28/2017; CT ABD PELVIS W CONTRAST dated 09/13/2014 TECHNIQUE: CT of the abdomen and pelvis was performed. All CT scans are performed using dose optimization technique as appropriate and may include automated exposure control or mA/KV adjustment according to patient size. FINDINGS: Lower chest: No acute abnormality. Liver: No acute abnormality or suspicious lesions. Focal fat along the falciform ligament and segment 4 of the liver. . Biliary: Cholecystectomy. Stomach: No significant focal abnormality. Duodenum: No significant focal abnormality. Pancreas: No significant abnormality. Spleen: No significant abnormality. Adrenal: No suspicious lesions. Kidney/ureter: No hydronephrosis. Bilateral renal calculi. Too small to characterize and/or benign ap pearing renal lesions are noted. Phleboliths along the course of both ureters. Retroperitoneum: No retroperitoneal adenopathy. Vascular: No aneurysm. Bowel: Normal appendix.. Peritoneum: No ascites or free air. Bladder: Grossly unremarkable. Reproductive: No adnexal masses. Bones: No acute fracture. Other: n/a IMPRESSION: No acute intra-abdominal or pelvic finding. Bilateral nonobstructing renal calculi. Norm al appendix.
--- NOTE | 2023-07-18 18:43 | EDPHYS ---
Physician Documentation [facility] Name: Eunice Griffin Age: 47 yrs Sex: Female : 1975 Arrival Date: 07/18/2023 Time: 16:10 Bed 7 Private MD: ED Physician Jaycob White HPI: 07/17 18:22 This 47 yrs old Female presents to ER via Ambulatory with complaints of Flank Pain. kb 18:22 Pt is a 47 year old female who presents for right sided abd pain, nausea and slight kb diarrhea for 2-3 days. States she thinks she had a fever this morning, but didn't check it. Denies vomiting. . Historical: - Allergies: 16:42 Macrodantin; ll1 16:42 Latex; ll1 - PMHx: 16:42 borderline DM; Hypothyroidism; Diabetes - NIDDM; ll1 - PSHx: 16:42 Cholecystectomy; section; neck surgery; Ligation of fallopian tube; uterine ll1 ablation; - Immunization history:: Adult Immunizations up to date. - Infectious Disease History:: Denies. - Social history:: Smoking status: Reported history of juuling and/or vaping. ROS: 18:21 Constitutional: As per HPI kb Exam: 18:21 Constitutional: This is a well developed, well nourished patient who is awake, alert, kb and in no acute distress. Head/Face: Normocephalic, atraumatic. ENT: Moist Mucous membranes Cardiovascular: Regular rate Respiratory: Respirations even and unlabored. No increased work of breathing. Talking in full sentences Skin: Warm, dry with normal turgor. Normal color. MS/ Extremity: Pulses equal, no cyanosis. Neurovascular intact. Full, normal range of motion. Neuro: Awake and alert, GCS 15, oriented to person, place, time, and situation. Moves all extremities. Normal gait. 18:21 Abdomen/GI: Inspection: abdomen appears normal, Bowel sounds: normal, Palpation: soft, in all quadrants, mild abdominal tenderness, in the right upper quadrant, moderate abdominal tenderness, in the right lower quadrant, Vital Signs: 16:42 BP 142 / 92; Pulse 88; Resp 16; Temp 97.4; Pulse Ox 96% ; Weight 65.77 kg; Height 5 ft. ll1 2 in. ; Pain 8/10; 18:30 BP 125 / 81; Pulse 76; Resp 16; Pulse Ox 99% ; bp 16:42 Body Mass Index 26.52 (65.77 kg, 157.48 cm) ll1 16:42 Pain Scale: Adult ll1 MDM: 16:54 Patient medically screened. kb 18:22 Data reviewed: vital signs, nurses notes. kb 18:22 Differential diagnosis: appendicitis, gastritis, gastroesophageal reflux disease, kb non-specific abd pain, pancreatitis. 18:41 Counseling: I had a detailed discussion with the patient and/or guardian regarding the kb historical points, exam findings, and any diagnostic results supporting the discharge/admit diagnosis, lab results, radiology results, the need for outpatient follow up, a family practitioner, a principle software engineer, to return to the emergency department if symptoms worsen or persist or if there are any questions or concerns that arise at home. 20:43 ED course: At bedside to reassess patient. Patient remains awake, alert and at baseline kb mentation. Patient appears stable. Patient exhibits no visible signs of distress. Patient respirations even and unlabored. I discussed patient's diagnosis, differential diagnosis, expected course of illness, at home recommendations and strict return precautions. I advised patient to follow-up with PCP in 2 to 3 days. I explained all diagnostic results with the patient and answered all questions that patient had regarding the most likely diagnosis. I emphasized the need for close outpatient follow-up and care from primary care provider/specialist and went through careful and detailed return precautions with patient. Patient expressed full understanding of such and agrees with plan for discharge today. Feel patient is stable and appropriate for discharge and ongoing management of condition at home at this time.. 07/17 17:00 Order name: CBC with Diff; Complete Time: 17:40 kb 07/17 17:00 Order name: CMP; Complete Time: 17:57 kb 07/17 17:00 Order name: Lipase; Complete Time: 17:57 kb 07/17 17:00 Order name: Urinalysis w/ reflexes; Complete Time: 17:47 kb 07/17 17:00 Order name: CT Abd/Pelvis - IV Contrast Only; Complete Time: 18:34 kb 07/17 17:00 Order name: IV Saline Lock; Complete Time: 17:16 kb 07/17 17:00 Order name: Labs collected and sent; Complete Time: 17:16 kb Administered Medications: 17:16 Drug: TORadol - Ketorolac IVP 15 mg IVP once Route: IVP; Site: right antecubital; bp 18:43 Follow up: Response: No adverse reaction bp 17:16 Drug: Ondansetron IVP 4 mg IVP once; over 2 minutes Route: IVP; Site: right antecubital;bp 18:43 Follow up: Response: No adverse reaction bp 17:17 Drug: NS 0.9% IV 1000 ml IV at 1 bolus Per protocol; 1000 mL bolus Route: IV; Rate: 1 bp bolus; Site: right antecubital; 18:43 Follow up: IV Status: Completed infusion; IV Intake: 1000ml bp 17:17 Drug: Famotidine IVP 20 mg IVP once; dilute with 10 mL 0.9% NaCl; give over 2 minutes bp Route: IVP; Site: right antecubital; 18:43 Follow up: Response: No adverse reaction bp Disposition: 19:40 Co-signature as Attending Physician, Jaycob White MD I reviewed the patient's care rt provided by the Advanced Practice Provider and agree with the diagnosis and treatment plan. Disposition Summary: 07/18/23 18:42 Discharge Ordered Notes: Location: Home kb Condition: Stable kb Diagnosis - Abdominal pain, Generalized kb Followup: kb - With: Emergency Department - When: As needed - Reason: Worsening of condition Followup: kb - With: Private Physician - When: 2 - 3 days - Reason: Recheck today's complaints, Continuance of care, Re-evaluation by your physician Discharge Instructions: - Discharge Summary Sheet kb - Abdominal Pain, Adult, [id number] kb Forms: - Medication Reconciliation Form kb - Thank You Letter kb - Antibiotic Education kb - Prescription Opioid Use kb - Patient Portal Instructions kb - Leadership Thank You Letter kb Prescriptions: - dicyclomine 20 mg Oral tablet - take 1 tablet ORAL route 4 times per day As needed; 20 tablet; Refills: 0, kb Product Selection Permitted Signatures: Dispatcher [employer] Julienne Cabrera FNP-C FNP-Ckb Peltier, Brian, RN RN bp José Kim, TANISHA RN ll1 Jaycob White MD MD rt Corrections: (The following items were deleted from the chart) 17:00 17:00 CBC+H.LAB.BRZ ordered. EDAZ EDMS 17:00 17:00 COMPREHENSIVE METABOLIC PANEL+C.LAB.BRZ ordered. EDMS EDMS 17:00 17:00 LIPASE+C.LAB.BRZ ordered. EDMS EDMS 17:00 17:00 Urinalysis+U.LAB.BRZ ordered. EDMS EDMS 17:00 17:00 Abdomen Pelvis W Con+CT.RAD.BRZ ordered. EDMS EDMS
--- NOTE | 2023-07-18 18:43 | ER ---
Nurse's Notes [facility] Name: Eunice Griffin Age: 47 yrs Sex: Female : 1975 Arrival Date: 07/18/2023 Time: 16:10 Bed 7 Private MD: Diagnosis: Abdominal pain, Generalized Presentation: 07/17 16:42 Chief complaint: Patient states: R sided abdominal pain with nausea and slight diarrhea ll1 for a couple days. [place] hot, but didn't take temperature. Dicyclomine not helping. Coronavirus screen: Client indicates they have traveled out of the [place] in the last 14 days. At this time, the client does not indicate any symptoms associated with coronavirus-19. Ebola Screen: Patient denies travel to an Ebola-affected area in the 21 days before illness onset. Initial Sepsis Screen: Does the patient meet any 2 criteria? No. Patient's initial sepsis screen is negative. Does the patient have a suspected source of infection? No. Patient's initial sepsis screen is negative. Risk Assessment: Do you want to hurt yourself or someone else? Patient reports no desire to harm self or others. Onset of symptoms was July 16, 2023. 16:42 Method Of Arrival: Ambulatory ll1 16:42 Acuity: BEBO 3 ll1 Triage Assessment: 16:43 General: Appears uncomfortable, Behavior is calm, cooperative, appropriate for age. ll1 General: Reports fatigue for. Pain: Complains of pain in R abdomen Quality of pain is described as aching, crampy. GI: Reports upper abdominal pain, diarrhea, nausea. Historical: - Allergies: 16:42 Macrodantin; ll1 16:42 Latex; ll1 - PMHx: 16:42 borderline DM; Hypothyroidism; Diabetes - NIDDM; ll1 - PSHx: 16:42 Cholecystectomy; section; neck surgery; Ligation of fallopian tube; uterine ll1 ablation; - Immunization history:: Adult Immunizations up to date. - Infectious Disease History:: Denies. - Social history:: Smoking status: Reported history of juuling and/or vaping. Screenin:19 [facility] ED Fall Risk Assessment (Adult) History of falling in the last 3 months, bp including since admission No falls in past 3 months (0 pts). Abuse screen: Denies threats or abuse. Denies injuries from another. Nutritional screening: No deficits noted. Tuberculosis screening: No symptoms or risk factors identified. Assessment: 16:45 General: SEE TRIAGE NOTE. bp 18:30 Reassessment: Patient appears in no apparent distress at this time. Patient is alert, bp oriented x 3, equal unlabored respirations, skin warm/dry/pink. 18:49 Reassessment: Patient appears in no apparent distress at this time. No changes from ld1 previously documented assessment. Patient and/or family updated on plan of care and expected duration. Pain level reassessed. Patient is alert, oriented x 3, equal unlabored respirations, skin warm/dry/pink. Vital Signs: 16:42 BP 142 / 92; Pulse 88; Resp 16; Temp 97.4; Pulse Ox 96% ; Weight 65.77 kg; Height 5 ft. ll1 2 in. ; Pain 8/10; 18:30 BP 125 / 81; Pulse 76; Resp 16; Pulse Ox 99% ; bp 16:42 Body Mass Index 26.52 (65.77 kg, 157.48 cm) ll1 16:42 Pain Scale: Adult ll1 ED Course: 16:11 Patient arrived in ED. rg4 16:44 Triage completed. ll1 16:45 Arm band placed on. ll1 16:53 Patient placed in an exam room, on a stretcher. iw 16:54 Julienne Mcleod FNP-C [facility]. kb 16:54 Jaycob White MD is Attending Physician. kb 17:01 Donell Rivero, TANISHA is Primary Nurse. bp 17:16 CBC with Diff Sent. bp 17:16 CMP Sent. bp 17:16 Lipase Sent. bp 17:16 Urinalysis w/ reflexes Sent. bp 17:17 Initial lab(s) drawn, by ri, sent to lab. Urine collected: clean catch specimen, clear. bp Inserted saline lock: 22 gauge in right antecubital area, using aseptic technique. Blood collected. 17:19 Patient has correct armband on for positive identification. bp 18:21 CT Abd/Pelvis - IV Contrast Only In Process Unspecified. EDMS 18:49 No provider procedures requiring assistance completed. IV discontinued, intact, ld1 bleeding controlled, No redness/swelling at site. Administered Medications: 17:16 Drug: TORadol - Ketorolac IVP 15 mg IVP once Route: IVP; Site: right antecubital; bp 18:43 Follow up: Response: No adverse reaction bp 17:16 Drug: Ondansetron IVP 4 mg IVP once; over 2 minutes Route: IVP; Site: right antecubital;bp 18:43 Follow up: Response: No adverse reaction bp 17:17 Drug: NS 0.9% IV 1000 ml IV at 1 bolus Per protocol; 1000 mL bolus Route: IV; Rate: 1 bp bolus; Site: right antecubital; 18:43 Follow up: IV Status: Completed infusion; IV Intake: 1000ml bp 17:17 Drug: Famotidine IVP 20 mg IVP once; dilute with 10 mL 0.9% NaCl; give over 2 minutes bp Route: IVP; Site: right antecubital; 18:43 Follow up: Response: No adverse reaction bp Medication: 18:50 VIS not applicable for this client. ld1 Intake: 18:43 IV: 1000ml; Total: 1000ml. bp Outcome: 18:42 Discharge ordered by . kb 18:50 Discharged to home ambulatory, ld1 18:50 Condition: stable 18:50 Discharge instructions given to patient, Instructed on discharge instructions, follow up and referral plans. Demonstrated understanding of instructions, follow-up care, 18:50 Patient left the ED. ld1 Signatures: Dispatcher [employer] Julienne Cabrera, COMMUNITY CASE MANAGER-C COMMUNITY CASE MANAGER-Maureen Caruso, RN Ani Darling rg4 Donell Rivero RN RN bp Lewis, Lynsay, RN RN 1 Cornelia Hurt RN RN ld1
[2023-07-18 18:59] VITALS: BP 125/81; TEMP 97.4; O2SAT 99
== END 2023-07-18 18:50 | disposition home or self-care (01) ==
LOC: ER 16:10
DX: R10.84 Generalized abdominal pain (principal); Z88.1 Allergy status to other antibiotic agents; Z91.040 Latex allergy status
CPT/HCPCS: 96361; 85025; 81001; 36415; 83690; 80053; 74177; 96375; 96374; 99284; Q9967; J2405; J7030

== ENCOUNTER 2024-01-31 09:40 | Emergency (ER) | payer BC ==
--- OUTSIDE RECORDS SUMMARY | 2024-01-31 09:43 | XMS REPORT | Continuity of Care Document ---
Author Name Unknown Address [address] [facility] [address] [place] [address] [facility] thconnect Address [address] [facility]. [address] [place] [address] Care Team Providers Care Fiber Worker Name Role Phone Pcp, Patient Does Not Have A Primary Care Physic rekha [email or web address] Attending Clinician Unavaila MAXX Davies Attending Clinician Unavailabl MILEY Baird Attending Clinician Unavailable Beatrice ENVIRONMENTAL TECHNICAL OFFICERMiley Gleason Attending Clinician [phone] Lon Wilkinson Attending Clinician [phone] Doctor Unassigned, [place] Attending Clinician U navailLON De Jesus Attending Clinician Unavailable Lab, Adc Fam Pob I Attending Clinician Unavailab le [email or web address] Admitting Clinician Unavaila ble Payers Payer Name Policy Type Policy Number Effective Date Expirati on Date Source [facility] [id number] 2020 00:00:00 Problems Condition Name Condition Details Condition Category Status Onset Date Resolution Date Last Treatment Date Treating Clinician Comments Source Hypothyroi dism Hypothyroi dism Problem Active 08-25 00:00: 00 [facility] Type 2 diabetes mellitus Type 2 Diabetes Mellitus Problem Active 08-25 00:00: 00 [facility] Anxiety Anxiety Problem Active 08-25 00:00: 00 [facility] Menopausal symptom Menopausal Symptom Problem Active 08-25 00:00: 00 [facility] Screening mammograph y Screening Mammograph y Problem Active 08-10 00:00: 00 [facility] 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 Active 08-10 00:00: 00 [facility] Acute pain of left shoulder Acute pain of left shoulder Disease Active 11-13 00:00: 00 [facility] Acute pain of left shoulder Acute pain of left shoulder Disease Active 11-13 00:00: 00 [facility] Allergies, Adverse Reactions, Alerts Allergy Name Allergy Type Status Severity Reaction(s) Onset Date Inactive Date Treating Clinician Comments Source Nitrofur antoin Monohyd/ M-Cryst Propensi ty to adverse reaction s Active Hives 10-30 00:00: 00 [facility] NITROFUR ANTOIN MONOHYD/ M-CRYST DRUG Active Med Hiv 8 00:00: 00 [facility] Latex Allergy to substanc e Active Rash [facility] NO KNOWN ALLERGIE S Drug Class Active [facility] Social History Social Habit Start Date Stop Date Quantity Comments Source History of tobacco use Light tobacco smoker [facility] Exposure to SARS-CoV-2 (event) 2021-02-18 00:00:00 2021-03-20 09:50:[address] [facility] History of Social function 2020-11-02 00:00:00 2020-11-02 00:00:00 [facility] Alcohol intake 2020-10-30 00:00:00 2020-10-30 00:00:00 Current non-drinker of alcohol (finding) [facility] Tobacco use and exposure 2016-11-13 00:00:00 2016-11-13 00:00:00 Smokeless tobacco non-user [facility] Sex Assigned At 1975 00:00:00 1975 00:00:00 [facility] Smoking Status Start Date Stop Date Source Light tobacco smoker 2016-11-13 00:00:00 [facility] Medications Ordered Medication Name Filled Medication Name Start Date Stop Date Current Medication? Ordering Clinician Indication Dosage Frequency Signature (SIG) Comments Components Source acetaminoph en (TYLENOL) tablet 650 mg 2020-03 16:45: 00 03-20 15:50 :25 No 650mg [facility] amoxicillin -clavulanat e 875-125 mg per tablet 2020-03 00:00: 00 03-31 05:59 :00 No [id number] 1{tbl} Take 1 tablet by mouth 2 (two) times daily for 10 days. [facility] fluconazole (DIFLUCAN) 150 mg tablet 2020-03 00:00: 00 03-21 05:59 :00 No [id number] 150mg Take 1 tablet by mouth once now for 1 dose. [facility] levothyroxi ne 125 mcg tablet 10-28 00:00: 00 Yes [facility] etodolac 500 mg tablet 11-09 00:00: 00 Yes [facility] methylPREDN ISolone 4 mg tablets 11-09 00:00: 00 Yes [facility] cyclobenzap rine 10 mg tablet 11-08 00:00: 00 Yes [facility] TRULICITY 1.5 mg/0.5 mL PnIj 11-08 00:00: 00 Yes [facility] buPROPion XL 300 mg 24 hr tablet 10-15 00:00: 00 Yes [facility] metFORMIN 1,000 mg tablet 10-15 00:00: 00 Yes [facility] PNEUMOVAX 23 25 mcg/0.5 mL Syrg 09-10 00:00: 00 Yes [facility] promethazin e-codeine 6.25-10 mg/5 mL syrup 08-25 00:00: 00 Yes [facility] candesartan 32 mg tablet Take 1 tablet every day by oral route. candesartan 32 mg tablet Take 1 tablet every day by oral route. No 1 Q1D candesarta n 32 mg tablet Take 1 tablet every day by oral route. [facility] dicyclomine dicyclomine No di cyclomin e [facility] Effexor Effexor No Effexor [facility] levothyroxi ne 75 mcg capsule Take 1 capsule every day by oral route. levothyroxi ne 75 mcg capsule Take 1 capsule every day by oral route. No 1capsul e(s) Q1D levothyrox ine 75 mcg capsule Take 1 capsule every day by oral route. [facility] Mounjaro Mounjaro No Mounjaro [facility] Vital Signs Vital Name Observation Time Observation Value Comments S ource BMI (Body Mass Index) 2023-08-26 00:00:00 26 kg/m2 [facility] Height 2023-08-26 00:00:00 62 [in_i] [facility] Body Weight 2023-08-26 00:00:00 142.2 [lb_av] [facility] BP Diastolic 2023-08-26 00:00:00 80 mm[Hg] [facility] BP Systolic 2023-08-26 00:00:00 132 mm[Hg] [facility] Systolic blood pressure 2021-03-20 15:56:00 144 mm[Hg] [facility] Diastolic blood pressure 2021-03-20 15:56:00 83 mm[Hg] [facility] Heart rate 2021-03-20 15:35:00 83 /min [facility] Body temperature 2021-03-20 15:35:[address] [facility] Respiratory rate 2021-03-20 15:35:00 18 /min [facility] Body height 2021-03-20 15:35:00 157.5 cm [facility] Body weight 2021-03-20 15:35:00 84.188 kg [facility] BMI 2021-03-20 15:35:00 33.95 kg/m2 [facility] Oxygen saturation in Arterial blood by Pulse oximetry 2021-03-20 15:35:00 97 /min [facility] Systolic blood pressure 2020-10-30 16:34:00 136 mm[Hg] [facility] Diastolic blood pressure 2020-10-30 16:34:00 86 mm[Hg] [facility] Heart rate 2020-10-30 16:29:00 103 /min [facility] Body temperature 2020-10-30 16:29:[address] [facility] Respiratory rate 2020-10-30 16:29:00 18 /min [facility] Body height 2020-10-30 16:29:00 157.5 cm [facility] Body weight 2020-10-30 16:29:00 81.647 kg [facility] BMI 2020-10-30 16:29:00 32.92 kg/m2 [facility] Oxygen saturation in Arterial blood by Pulse oximetry 2020-10-30 16:29:00 95 /min [facility] Procedures Procedure Date / Time Performed Performing Clinician Source MAMMO, screening, digital, bilateral 2023-08-26 00:00:00 [facility] CONSENT/REFUSAL FOR DIAGNOSIS AND TREATMENT 2020-11-02 05:01:00 Doctor Unassigned, [place] [facility] Tubal Ligation [facility] Procedure on Neck [facility] Procedure [facility] Kidney [facility] Cholecystectomy [facility] Section [facility] Encounters Start Date/Time End Date/Time Encounter Type Admission Type Attending Clinicians Care Facility Care Department Encounter ID Source 2023-08-26 00:00:00 2023-08-26 00:00:00 Ashley Medina, ENVIRONMENTAL TECHNICAL OFFICER: [address], [place] [address] , Ph. [facility] - [email or web address]_Tasha [facility]* [id number] [facility] 2023-01-27 00:00:00 2023-01-27 00:00:00 Outpatient GC_GCBZW_Erica tucker_Julio [facility] [id number] [facility] 2022-10-30 00:00:00 2022-10-30 00:00:00 Outpatient MAXX YANES [facility] [id number] [facility] 2022-10-02 00:00:00 2022-10-02 00:00:00 Outpatient R MAXX COHN [facility] [id number] [facility] 2021-03-20 09:00:00 2021-03-20 10:13:44 Outpatient R BEATRICENEELAY [facility] [id number] [facility] 2021-03-20 09:00:00 2021-03-20 09:20:00 Urgent Care BeatriceMiley Randalherman, [facility] [id number] [facility] 2020-11-02 10:30:00 2020-11-02 10:30:00 Outpatient R [facility] [id number] [facility] 2020-11-02 00:00:00 2020-11-02 00:00:00 Orders Only Doctor Unassigned, [place] [facility] [id number] [facility] 2020-11-01 00:00:00 2020-11-01 00:00:00 Patient Secure Msg Doctor Unassigned, [place] [facility] [id number] [facility] 2020-10-30 11:17:17 2020-10-30 11:37:17 Urgent Care BeatriceNeelanish Vasquez, [facility] [id number] [facility] 2020-10-30 11:20:00 2020-10-30 11:20:00 Outpatient R LON VASQUEZ [facility] [id number] [facility] 2020-10-30 00:00:00 2020-10-30 00:00:00 Telephone Beatrice [facility] .[id number] [facility] 2020-03-18 17:34:34 2020-03-18 17:54:34 Laboratory Only [facility] ..114 [id number] [facility] 2020-03-18 17:40:00 2020-03-18 17:40:00 Outpatient R BEATRICE [facility] [id number] [facility] 2020-03-18 00:00:00 2020-03-18 00:00:00 Letter (Out) Doctor Unassigned, [place] [facility] ..114 [id number] [facility]
[2024-01-31] MEDS ORDERED: ONDANSETRON 4 MG/2 ML VIAL ONE (10:23)
[2024-01-31] MEDS ORDERED: MORPHINE 4 MG/ML SYR ONE (10:24)
[2024-01-31] MEDS ORDERED: NA CHLORIDE 0.9% 1,000 ML ONE (10:24)
[2024-01-31 10:47] LABS: Specific Gravity 1.013 (1.005-1.030); Urine Bilirubin NEGATIVE (Negative); Urine Blood Negative (Negative); Urine Clarity Clear (Clear); Urine Color Light-Yellow (Yellow); Urine Glucose NEGATIVE (Negative); Urine Ketones NEGATIVE (Negative); Urine Microscopic Reflex YN NO UMIC; Urine Nitrite NEGATIVE (Negative); Urine Protein NEGATIVE (Negative); Urine Urobilinogen Normal (Normal)
[2024-01-31 10:50] LABS: Absolute Basophils 0.1 K/uL (0-0.5); Absolute Eosinophils 0.1 K/uL (0-0.5); Absolute Lymphocytes (CBC) 2.8 K/uL (0.7-4.9); Absolute Monocytes 0.6 K/uL (0.1-1.3); Absolute Neutrophil 4.6 K/uL (1.8-8.0); Basophils % 0.9 % (0-1.3); Eosinophils % 0.7 % (0-4.4); Hematocrit 41.3 % (36.0-45.0); Hemoglobin 13.9 g/dL (12.0-15.0); Lymphocytes % 34.4 % (15.3-44.8); MCH 31.6 pg (27.0-35.0); MCHC 33.7 g/dL (32.0-36.0); MCV 93.9 fL (80-100); MPV 8.1 fL (7.6-11.3); Monocytes % 7.9 % (3.3-12.3); Neutrophils % 56.1 % (41.7-73.7); Nucleated Red Blood Cells % 0.1 % (0-0); Platelets 379 thou/uL (152-406); Red Cell Distribution Width 13.8 % (12.1-15.2)
[2024-01-31 11:10] LABS: Albumin 3.9 g/dL (3.4-5.0); Albumin/Globulin Ratio 1.1 (1.1-1.8); Anion Gap 7.2 mEq/L (5.0-15.0); Bilirubin Total 0.4 mg/dL (0.2-1.0); Globulin 3.6 g/dL (2.3-3.5); Potassium 4.2 mEq/L (3.5-5.1); Protein, Total 7.5 g/dL (6.4-8.2)
--- NOTE | 2024-01-31 12:39 | RAD REPORT ---
EXAMINATION: CT Abdomen Pelvis W Contrast CLINICAL INDICATION: Female, 48 years old. Abd pain;Flank pain TECHNIQUE: CT abdomen and pelvis was performed, after the administration of IV contrast, as per [facility] protocol. Axial, sagittal and coronal reconstructions were obtained. One or more of the following dose reduction techniques were used: Automated exposure control, adjustment of the mA and k V according to patient size, and iterative reconstruction. Unless otherwise specified, incidental findings do not require dedicated imaging follow-up. COMPARISON: 10/12/2023 FINDINGS: LOWER CHEST: The visualized lung bases are clear. LIVER: Normal in size and contour. No focal lesion. BILIARY SYSTEM: Status post cholecystectomy. Mild prominence of the central intrahepatic and extrahep atic bile ducts, probably related to reservoir effect. SPLEEN: Normal size. No focal lesion. PANCREAS: No mass, ductal dilation, or sherice-pancreatic fluid. ADRENALS: Normal; no mass. KIDNEYS: Normal size and contour. No hydronephrosis. Nonobstructing bilateral lower pole renal calcul i, largest on the right measuring 4 mm URINARY BLADDER: Unremarkable. GASTROINTESTINAL TRACT: Short segment of mild fluid distention with some fecalization involving jejun um in the left upper quadrant, with gradual transition. Fluid opacification without significant distention involving right lower quadrant small bowel, with gradual transition to a decompressed term inal ileum No evidence of free air, significant intra-abdominal free fluid, bowel obstruction or abscess. APPENDIX: Normal appendix. LYMPH NODES: No lymphadenopathy. MUSCULOSKELETAL: No acute or suspicious osseous abnormality. ADDITIONAL FINDINGS: Small calcified ill-defined uterine fibroids. IMPRESSION: Short segment mild fluid distention of the proximal jejunum with some fecalization. Fluid opacificati on within short segments of nondistended distal ileum. Gradual transition to nondistended bowel distal to both segments. Findings are nonspecific, and may relate to mild enteritis or diarrheal stat e. Bilateral nonobstructing small renal calculi. Other incidental findings including sequelae of cholecystectomy.
--- NOTE | 2024-01-31 12:51 | EDPHYS ---
Physician Documentation [facility] Name: Eunice Griffin Age: 48 yrs Sex: Female : 1975 Arrival Date: 01/31/2024 Time: 09:40 Bed 19 Private MD: DARA Physician Jesus Alberto Sneed HPI: 01/30 10:09 This 48 yrs old Female presents to ER via Ambulatory with complaints of Back Pain. sb4 10:09 The patient presents with pain that is acute, with no known mechanism of injury. The sb4 symptoms are located in the low back. Onset: The symptoms/episode began/occurred 3 day(s) ago. The pain does not radiate. Associated signs and symptoms: Pertinent positives: urinary hesitancy. The patient has experienced similar episodes in the past, a few times, today's symptoms are similar, to when the patient was apparently diagnosed with uti. The patient has not recently seen a physician. 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 - Infectious Disease History:: Denies. - Social history:: Smoking status: Reported history of juuling and/or vaping. ROS: 10:09 Constitutional: Negative for fever, chills, and weight loss, sb4 10:09 Abdomen/GI: Positive for nausea, 10:09 Back: Positive for pain at rest, 10:09 : Positive for urinary hesistancy, 10:09 All other systems are negative, Exam: 10:09 Head/Face: Normocephalic, atraumatic. Eyes: Extra-ocular motions intact. Periorbital sb4 areas with no swelling, redness, or edema. ENT: Mucous membranes moist. Cardiovascular: Regular rate and rhythm with a normal S1 and S2. Respiratory: No increased work of breathing, no retractions or nasal flaring. Abdomen/GI: Soft, non-tender, no distension. Back: No spinal tenderness. No costovertebral tenderness. Full range of motion. Skin: Warm, dry with normal turgor. Normal color with no rashes, no lesions, and no evidence of cellulitis. 10:09 Constitutional: The patient appears alert, awake, uncomfortable, 12:52 Neuro: Orientation: is normal, to person, place, time \\T\\ situation. Mentation: is sb4 normal, Motor: is normal, moves all fours, Sensation: is normal, Gait: is steady, Vital Signs: 10:01 BP 131 / 92; Pulse 86; Resp 15; Temp 97.6(TE); Pulse Ox 100% on R/A; Weight 64.86 kg; ss Height 5 ft. 2 in. ; Pain 7/10; 13:26 BP 123 / 83; Pulse 69; Resp 18; Pulse Ox 100% ; cm10 10:01 Body Mass Index 26.15 (64.86 kg, 157.48 cm) ss 10:01 Pain Scale: Adult ss MDM: 09:47 Medical Screening Exam initiated breanna 12:50 Data reviewed: vital signs, nurses notes, lab test result(s), radiologic studies, and sb4 as a result, I will discharge patient. Counseling: I had a detailed discussion with the patient and/or guardian regarding the historical points, exam findings, and any diagnostic results supporting the discharge/admit diagnosis, lab results, radiology results, the need for outpatient follow up, for definitive care, to return to the emergency department if symptoms worsen or persist or if there are any questions or concerns that arise at home. 01/30 10:09 Order name: CBC with Diff; Complete Time: 10:56 sb4 01/30 10:09 Order name: CMP; Complete Time: 11:12 sb4 01/30 10:09 Order name: Urinalysis w/ reflexes; Complete Time: 10:47 sb4 01/30 10:09 Order name: CT Abd/Pelvis - IV Contrast Only; Complete Time: 12:41 sb4 01/30 10:09 Order name: IV Saline Lock; Complete Time: 10:40 sb4 01/30 10:09 Order name: Labs collected and sent; Complete Time: 10:40 sb4 Administered Medications: 10:40 Drug: Ondansetron IVP 4 mg IVP once; over 2 minutes Route: IVP; Site: right forearm; cm10 12:13 Follow up: Response: No adverse reaction cm10 10:40 Drug: morphine IVP or IV 4 mg IVP once over 4 mins Route: IVP; Infused Over: 4 mins; cm10 Site: right forearm; 12:13 Follow up: Response: No adverse reaction cm10 10:40 Drug: NS 0.9% IV 1000 ml IV at 1 bolus Per protocol; to be given as a bolus over 60 cm10 minutes Route: IV; Rate: 1 bolus; Site: right forearm; 12:12 Follow up: Response: No adverse reaction; IV Status: Completed infusion; IV Intake: cm10 1000ml Disposition Summary: 01/31/24 12:51 Discharge Ordered Notes: Location: Home sb4 Problem: new sb4 Symptoms: have improved sb4 Condition: Stable sb4 Diagnosis - Low back pain sb4 Followup: sb4 - With: Private Physician - When: As needed - Reason: Recheck today's complaints, Re-evaluation by your physician Discharge Instructions: - Discharge Summary Sheet sb4 - Acute Back Pain, Adult sb4 - Musculoskeletal Pain sb4 - Pain Without a Known Cause sb4 Forms: - Patient Portal Instructions sb4 - Leadership Thank You Letter sb4 Prescriptions: - Prednisone 20 mg Oral Tablet - take 1 tablet ORAL route once daily for 5 days; 5 tablet; Refills: 0, Product sb4 Selection Permitted - Diclofenac Sodium 75 mg Oral Tablet Sustained Release - take 1 tablet ORAL route 2 times per day; 30 tablet; Refills: 0, Product sb4 Selection Permitted - Cyclobenzaprine 5 mg Oral Tablet - take 1 tablet ORAL route 3 times per day As needed; 15 tablet; Refills: 0, sb4 Product Selection Permitted Signatures: Dispatcher [employer] EDMS Jesus Alberto Sneed MD MD cha Blanchard, Shelby, RN RN Geneva Vasques PA-Kalyani PATeena Sykes, RN RN cm10 Corrections: (The following items were deleted from the chart) 10:07 10:00 PMHx: borderline DM; ss ss 10: 10:00 PMHx: Diabetes - NIDDM; ss ss 10: 10:09 CBC+H.LAB.BRZ ordered. EDMS EDMS 10: 10:09 COMPREHENSIVE METABOLIC PANEL+C.LAB.BRZ ordered. EDMS EDMS 10: 10:09 Urinalysis+U.LAB.BRZ ordered. EDMS EDMS 10:09 10:09 Abdomen Pelvis W Con+CT.RAD.BRZ ordered. EDMS EDMS
--- NOTE | 2024-01-31 12:51 | ER ---
Nurse's Notes [facility] Name: Eunice Griffin Age: 48 yrs Sex: Female : 1975 Arrival Date: 01/31/2024 Time: 09:40 Bed 19 Private MD: Diagnosis: Low back pain Presentation: 01/30 10:01 Chief complaint: Patient states: lower back pain that began Wednesday. Coronavirus screen: ss Client denies travel out of the [place] in the last 14 days. Ebola Screen: Patient denies exposure to infectious person. Patient denies travel to an Ebola-affected area in the 21 days before illness onset. Initial Sepsis Screen: Does the patient meet any 2 criteria? No. Patient's initial sepsis screen is negative. Does the patient have a suspected source of infection? No. Patient's initial sepsis screen is negative. Risk Assessment: Do you want to hurt yourself or someone else? Patient reports no desire to harm self or others. Onset of symptoms was January 28, 2024. 10:01 Method Of Arrival: Ambulatory ss 10:01 Acuity: BEBO 3 Triage Assessment: 10:01 General: Appears in no apparent distress. Behavior is calm, cooperative. Pain: ss Complains of pain in left low back and right low back Pain currently is 7 out of 10 on a pain scale. Neuro: Level of Consciousness is awake, alert, obeys commands. Derm: Skin is pink, warm \\T\\ dry. normal. 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 - Infectious Disease History:: Denies. - Social history:: Smoking status: Reported history of juuling and/or vaping. Screenin:[facility] ED Fall Risk Assessment (Adult) History of falling in the last 3 months, cm10 including since admission No falls in past 3 months (0 pts) Confusion or Disorientation No (0 pts) Intoxicated or Sedated No (0 pts) Impaired Gait No (0 pts) Mobility Assist Device Used No (0 pt) Altered Elimination No (0 pt) Score/Fall Risk Level 0 - 2 = Low Risk Oriented to surroundings, Maintained a safe environment, Hourly rounding (assess needs \\T\\ fall precautionary measures) done. Abuse screen: Denies threats or abuse. Denies injuries from another. Nutritional screening: No deficits noted. Tuberculosis screening: No symptoms or risk factors identified. Assessment: 10:41 General: Appears in no apparent distress. uncomfortable, Behavior is calm, cooperative. cm10 Pain: Complains of pain in right low back and left low back Pain does not radiate. Pain currently is 8 out of 10 on a pain scale. Neuro: No deficits noted. Level of Consciousness is awake, alert, obeys commands, Oriented to person, place, time, situation, Appropriate for age. Respiratory: No deficits noted. Airway is patent Respiratory effort is even, unlabored, Respiratory pattern is regular, symmetrical. Derm: No deficits noted. Skin is healthy with good turgor. Musculoskeletal: Reports pain in right low back and left low back. 13:26 Reassessment: Patient appears in no apparent distress at this time. No changes from cm10 previously documented assessment. Patient and/or family updated on plan of care and expected duration. Pain level reassessed. Patient is alert, oriented x 3, equal unlabored respirations, skin warm/dry/pink. Vital Signs: 10:01 BP 131 / 92; Pulse 86; Resp 15; Temp 97.6(TE); Pulse Ox 100% on R/A; Weight 64.86 kg; ss Height 5 ft. 2 in. ; Pain 7/10; 13:26 BP 123 / 83; Pulse 69; Resp 18; Pulse Ox 100% ; cm10 10:01 Body Mass Index 26.15 (64.86 kg, 157.48 cm) ss 10:01 Pain Scale: Adult ss ED Course: 09:43 Patient arrived in ED. mg5 09:44 Geneva Barr PA-C is PHCP. sb4 09:44 Jesus Alberto Sneed MD is Attending Physician. sb4 10:01 Arm band placed on right wrist. ss 10:02 Triage completed. ss 10:20 Teena Alva, TANISHA is Primary Nurse. cm10 10:40 CBC with Diff Sent. cm10 10:40 CMP Sent. cm10 10:40 Urinalysis w/ reflexes Sent. cm10 10:40 Initial lab(s) drawn, by me, sent to lab. Urine collected: clean catch specimen, cm10 cloudy. Inserted saline lock: 20 gauge in right forearm, using aseptic technique. Blood collected. Flushed with 10 mL NS. 10:42 Patient has correct armband on for positive identification. Placed in gown. Bed in low cm10 position. Call light in reach. Side rails up X2. Provided Education on: ER process and procedures. Pulse ox on. NIBP on. 11:35 CT Abd/Pelvis - IV Contrast Only In Process Unspecified. EDMS 13:26 No provider procedures requiring assistance completed. IV discontinued, intact, cm10 bleeding controlled, No redness/swelling at site. Pressure dressing applied. Administered Medications: 10:40 Drug: Ondansetron IVP 4 mg IVP once; over 2 minutes Route: IVP; Site: right forearm; cm10 12:13 Follow up: Response: No adverse reaction cm10 10:40 Drug: morphine IVP or IV 4 mg IVP once over 4 mins Route: IVP; Infused Over: 4 mins; cm10 Site: right forearm; 12:13 Follow up: Response: No adverse reaction cm10 10:40 Drug: NS 0.9% IV 1000 ml IV at 1 bolus Per protocol; to be given as a bolus over 60 cm10 minutes Route: IV; Rate: 1 bolus; Site: right forearm; 12:12 Follow up: Response: No adverse reaction; IV Status: Completed infusion; IV Intake: cm10 1000ml Medication: 10:42 VIS not applicable for this client. cm10 Intake: 12:12 IV: 1000ml; Total: 1000ml. cm10 Outcome: 12:51 Discharge ordered by MD. lr 13:26 Discharged to home ambulatory, with significant other, cm10 13:26 Condition: good 13:26 Discharge instructions given to patient, Instructed on discharge instructions, follow up and referral plans. medication usage, Demonstrated understanding of instructions, follow-up care, medications, Prescriptions given X 3, 13:26 Patient left the ED. cm10 Signatures: Dispatcher [employer] EDMS Sandi Rodrigues RN RN ss Brown, Sophia, PA-C PA-C sb4 Teena Alva RN RN cm10 Keshia Wolf mg5 Corrections: (The following items were deleted from the chart) 10: 10:00 PMHx: borderline DM; ss ss 10: 10:00 PMHx: Diabetes - NIDDM; ss ss
[2024-01-31 13:41] VITALS: TEMP 97.6; O2SAT 100
[2024-01-31 13:46] VITALS: BP 123/83
== END 2024-01-31 13:26 | disposition home or self-care (01) ==
LOC: ER 09:40
DX: M54.50 Low back pain, unspecified (principal); E11.9 Type 2 diabetes mellitus without complications; E03.9 Hypothyroidism, unspecified
CPT/HCPCS: 85025; 36415; 81003; 80053; 74177; Q9967; J2405; J7030; 96361; 96374; 96375; 99284

== ENCOUNTER 2024-02-24 23:49 | Emergency (ER) | payer BC ==
--- OUTSIDE RECORDS SUMMARY | 2024-02-24 23:53 | XMS REPORT | Continuity of Care Document ---
Author Name Unknown Address [address] [facility] [address] [place] [address] [facility] thconnect Address [address] [facility] [place] [address] Care Team Providers Care Supervisor Home [employer] Service Name Role Phone Pcp, Patient Does Not Have A Primary Care Physic rekha [email or web address] Attending Clinician Unavaila MAXX Davies Attending Clinician Unavailabl MILEY Baird Attending Clinician Unavailable Beatrice COLD ROLLERMiley Gleason Attending Clinician [phone] Lon Wilkinson Attending Clinician [phone] Doctor Unassigned, Donaldson Attending Clinician U navailLON De Jesus Attending Clinician Unavailable Lab, Adc Fam Pob I Attending Clinician Unavailab le [email or web address] Admitting Clinician Unavaila ble Payers Payer Name Policy Type Policy Number Effective Date Expirati on Date Source [facility] [id number] 2020 00:00:00 Problems Condition Name Condition Details Condition Category Status Onset Date Resolution Date Last Treatment Date Treating Clinician Comments Source Hypothyroi dism Hypothyroi dism Problem Active 08-25 00:00: 00 [facility] Type 2 diabetes mellitus Type 2 Diabetes Mellitus Problem Active 08-25 00:00: 00 [facility] Anxiety Anxiety Problem Active 08-25 00:00: 00 [facility] Menopausal symptom Menopausal Symptom Problem Active 08-25 00:00: 00 [facility] Screening mammograph y Screening Mammograph y Problem Active 08-10 00:00: 00 [facility] 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 Active 08-10 00:00: 00 [facility] Acute pain of left shoulder Acute pain of left shoulder Disease Active 11-13 00:00: 00 [facility] Acute pain of left shoulder Acute pain of left shoulder Disease Active 11-13 00:00: 00 [facility] Allergies, Adverse Reactions, Alerts Allergy Name Allergy Type Status Severity Reaction(s) Onset Date Inactive Date Treating Clinician Comments Source Nitrofur antoin Monohyd/ M-Cryst Propensi ty to adverse reaction s Active Hives 10-30 00:00: 00 [facility] NITROFUR ANTOIN MONOHYD/ M-CRYST DRUG Active Med Hiv 8 00:00: 00 [facility] Latex Allergy to substanc e Active Rash [facility] NO KNOWN ALLERGIE S Drug Class Active [facility] Social History Social Habit Start Date Stop Date Quantity Comments Source History of tobacco use Light tobacco smoker [facility] Exposure to SARS-CoV-2 (event) 2021-02-18 00:00:00 2021-03-20 09:50:00 Not sure [facility] History of Social function 2020-11-02 00:00:00 2020-11-02 00:00:00 [facility] Alcohol intake 2020-10-30 00:00:00 2020-10-30 00:00:00 Current non-drinker of alcohol (finding) [facility] Tobacco use and exposure 2016-11-13 00:00:00 2016-11-13 00:00:00 Smokeless tobacco non-user [facility] Sex Ass[birth year] At 1975 00:00:00 1975 00:00:00 [facility] Smoking Status Start Date Stop Date Source Light tobacco smoker 2016-11-13 00:00:00 [facility] Medications Ordered Medication Name Filled Medication Name Start Date Stop Date Current Medication? Ordering Clinician Indication Dosage Frequency Signature (SIG) Comments Components Source acetaminoph en (TYLENOL) tablet 650 mg 2020-03 16:45: 00 03-20 15:50 :25 No 650mg [facility] amoxicillin -clavulanat e 875-125 mg per tablet 2020-03 00:00: 00 03-31 05:59 :00 No [id number] 1{tbl} Take 1 tablet by mouth 2 (two) times daily for 10 days. [facility] fluconazole (DIFLUCAN) 150 mg tablet 2020-03 00:00: 00 03-21 05:59 :00 No [id number] 150mg Take 1 tablet by mouth once now for 1 dose. [facility] levothyroxi ne 125 mcg tablet 10-28 00:00: 00 Yes [facility] etodolac 500 mg tablet 11-09 00:00: 00 Yes [facility] methylPREDN ISolone 4 mg tablets 11-09 00:00: 00 Yes [facility] cyclobenzap rine 10 mg tablet 11-08 00:00: 00 Yes [facility] TRULICITY 1.5 mg/0.5 mL PnIj 11-08 00:00: 00 Yes [facility] buPROPion XL 300 mg 24 hr tablet 10-15 00:00: 00 Yes [facility] metFORMIN 1,000 mg tablet 10-15 00:00: 00 Yes [facility] PNEUMOVAX 23 25 mcg/0.5 mL Syrg 09-10 00:00: 00 Yes [facility] promethazin e-codeine 6.25-10 mg/5 mL syrup 08-25 00:00: 00 Yes [facility] candesartan 32 mg tablet Take 1 [...] Systolic blood pressure 2021-03-20 15:56:00 144 mm[Hg] [facility] Diastolic blood pressure 2021-03-20 15:56:00 83 mm[Hg] [facility] Heart rate 2021-03-20 15:35:00 83 /min [facility] Body temperature 2021-03-20 15:35:00 36.33 Myesha [facility] Respiratory rate 2021-03-20 15:35:00 18 /min [facility] Body height 2021-03-20 15:35:00 157.5 cm [facility] Body weight 2021-03-20 15:35:00 84.188 kg [facility] BMI 2021-03-20 15:35:00 33.95 kg/m2 [facility] Oxygen saturation in Arterial blood by Pulse oximetry 2021-03-20 15:35:00 97 /min [facility] Systolic blood pressure 2020-10-30 16:34:00 136 mm[Hg] [facility] Diastolic blood pressure 2020-10-30 16:34:00 86 mm[Hg] [facility] Heart rate 2020-10-30 16:29:00 103 /min [facility] Body temperature 2020-10-30 16:29:00 38.56 Myesha [facility] Respiratory rate 2020-10-30 16:29:00 18 /min [facility] Body height 2020-10-30 16:29:00 157.5 cm [facility] Body weight 2020-10-30 16:29:00 81.647 kg [facility] BMI 2020-10-30 16:29:00 32.92 kg/m2 [facility] Oxygen saturation in Arterial blood by Pulse oximetry 2020-10-30 16:29:00 95 /min [facility] Procedures Procedure Date / Time Performed Performing Clinician Source MAMMO, screening, digital, bilateral 2023-08-26 00:00:00 [facility] CONSENT/REFUSAL FOR DIAGNOSIS AND TREATMENT 2020-11-02 05:01:00 Doctor Unassigned, Donaldson [facility] Tub[facility] Encounters Start Date/Time End Date/Time Encounter Type Admission Type Attending Clinicians Care Facility Care Department Encounter ID Source 2023-08-26 00:00:00 2023-08-26 00:00:00 Ashley Medina, COLD ROLLER: [address], [place] [address] , Ph. [facility] - GC_GCBZW_Tasha [facility]* [id number] [facility] 2023-01-27 00:00:00 2023-01-27 00:00:00 Outpatient [email or web address]_Erica tucker_Julio [facility] [id number] [facility] 2022-10-30 00:00:00 2022-10-30 00:00:00 Outpatient MAXX YANES [facility] [id number] [facility] 2022-10-02 00:00:00 2022-10-02 00:00:00 Outpatient R MAXX COHN [facility] [id number] [facility] 2021-03-20 09:00:00 2021-03-20 10:13:44 Outpatient R BEATRICENEELAY [facility] [id number] [facility] 2021-03-20 09:00:00 2021-03-20 09:20:00 Urgent Care BeatriceMiley Randalherman, [facility] [id number] [facility] 2020-11-02 10:30:00 2020-11-02 10:30:00 Outpatient R [facility] [id number] [facility] 2020-11-02 00:00:00 2020-11-02 00:00:00 Orders Only Doctor Unassigned, Donaldson [facility] [id number] [facility] 2020-11-01 00:00:00 2020-11-01 00:00:00 Patient Secure Msg Doctor Unassigned, Donaldson [facility] [id number] [id number] [facility] 2020-10-30 11:17:17 2020-10-30 11:37:17 Urgent Care BeatriceNeelanish Vasquez, [facility] [id number] [id number] [facility] 2020-10-30 11:20:00 2020-10-30 11:20:00 Outpatient R LON VASQUEZ [facility] [id number] [facility] 2020-10-30 00:00:00 2020-10-30 00:00:00 Telephone Beatrice [facility] .[id number] [facility] 2020-03-18 17:34:34 2020-03-18 17:54:34 Laboratory Only [facility] ..114 [id number] [facility] 2020-03-18 17:40:00 2020-03-18 17:40:00 Outpatient R BEATRICE [facility] [id number] [facility] 2020-03-18 00:00:00 2020-03-18 00:00:00 Letter (Out) Doctor Unassigned, Donaldson [facility] ..114 [id number] [id number] [facility]
[2024-02-25] MEDS ORDERED: KETOROLAC 30 MG/ML INJ ONE (00:32)
[2024-02-25] MEDS ORDERED: ONDANSETRON 4 MG/2 ML VIAL ONE (00:32)
[2024-02-25] MEDS ORDERED: FAMOTIDINE 20 MG/2 ML VIAL IV ONE (00:33)
[2024-02-25] MEDS ORDERED: NA CHLORIDE 0.9% 2,000 ML ONE (00:33)
[2024-02-25] MEDS ORDERED: DIPHENOX/ATROP SULF 1 TAB PO ONE (00:33)
[2024-02-25 00:57] LABS: Hemoglobin 13.7 g/dL (12.0-15.0); Renal Epithelial <5 /HPF (None Seen); Specific Gravity 1.021 (1.005-1.030); Urine Bacteria <20 /HPF (<20); Urine Bilirubin NEGATIVE (Negative); Urine Blood Negative (Negative); Urine Clarity Turbid (Clear); Urine Color Light-Yellow (Yellow); Urine Culture Reflex Order NOT NEEDED; Urine Glucose NEGATIVE (Negative); Urine Ketones TRACE (Negative); Urine Microscopic Reflex YN ORDER UMIC; Urine Mucus Slight /HPF (None Seen); Urine Nitrite NEGATIVE (Negative); Urine Protein TRACE (Negative); Urine RBC <5 /HPF (None Seen); Urine Urobilinogen 1+ (Normal); Urine WBC <5 /HPF (<5)
[2024-02-25 01:01] LABS: Absolute Eosinophils 0.1 K/uL (0-0.5); Absolute Lymphocytes (CBC) 1.6 K/uL (0.7-4.9); Absolute Monocytes 0.9 K/uL (0.1-1.3); Absolute Neutrophil 4.7 K/uL (1.8-8.0); Basophils % 0.4 % (0-1.3); Lymphocytes % 21.7 % (15.3-44.8); MCH 31.8 pg (27.0-35.0); MCHC 33.5 g/dL (32.0-36.0); MPV 8.1 fL (7.6-11.3); Monocytes % 11.6 % (3.3-12.3); Neutrophils % 64.3 % (41.7-73.7); Nucleated Red Blood Cells % 0.1 % (0-0); Platelets 303 thou/uL (152-406); RBC Red Blood Cell Count 4.32 M/uL (3.86-4.86)
[2024-02-25 01:08] LABS: Albumin 3.3 g/dL (3.4-5.0); Albumin/Globulin Ratio 0.9 (1.1-1.8); Bilirubin Total 0.4 mg/dL (0.2-1.0); Globulin 3.6 g/dL (2.3-3.5); Protein, Total 6.9 g/dL (6.4-8.2)
--- NOTE | 2024-02-25 02:31 | ER ---
Nurse's Notes [facility] Name: Eunice Griffin Age: 48 yrs Sex: Female : 1975 Arrival Date: 02/24/2024 Time: 23:49 Bed 6 Private MD: Diagnosis: Hypokalemia;Acute gastroenteritis, acute diarrheal illness Presentation: 02/23 23:58 Chief complaint: Patient states: NAUSEA, VOMITING, DIARRHEA SINCE WEDNESDAY. FEELING ha1 WEAK, SLEEPING A LOT. 23:58 Coronavirus screen: Client denies travel out of the [place] in the last 14 days. Ebola ha1 Screen: No symptoms or risks identified at this time. Initial Sepsis Screen: Does the patient meet any 2 criteria? No. Patient's initial sepsis screen is negative. Does the patient have a suspected source of infection? No. Patient's initial sepsis screen is negative. Risk Assessment: Do you want to hurt yourself or someone else? Patient reports no desire to harm self or others. Onset of symptoms was February 25, 2024. 23:58 Method Of Arrival: Wheelchair ha1 23:58 Acuity: BEBO 3 ha1 Triage Assessment: 23:58 General: Appears uncomfortable, Behavior is calm, cooperative. Pain: Complains of pain ha1 in right upper quadrant Pain does not radiate. Pain currently is 6 out of 10 on a pain scale. Quality of pain is described as aching. Neuro: Level of Consciousness is awake, alert, obeys commands, Oriented to person, place, time, situation. Cardiovascular: Capillary refill. Respiratory: Airway is patent Respiratory effort is even, unlabored, Respiratory pattern is regular, symmetrical. GI: Reports upper abdominal pain, diarrhea, nausea, vomiting. 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 - Infectious Disease History:: Denies. - Social history:: Smoking status: Patient denies any tobacco usage or history of. - Family history:: not pertinent. Screenin/29 00:34 [facility] ED Fall Risk Assessment (Adult) History of falling in the last 3 months, al5 including since admission No falls in past 3 months (0 pts) Confusion or Disorientation No (0 pts) Intoxicated or Sedated No (0 pts) Impaired Gait No (0 pts) Mobility Assist Device Used No (0 pt) Altered Elimination No (0 pt) Score/Fall Risk Level 0 - 2 = Low Risk Oriented to surroundings, Maintained a safe environment, Hourly rounding (assess needs \T\ fall precautionary measures) done. Abuse screen: Denies threats or abuse. Denies injuries from another. Nutritional screening: No deficits noted. Tuberculosis screening: No symptoms or risk factors identified. Assessment: 00:33 General: Appears in no apparent distress. uncomfortable, Behavior is calm, cooperative. al5 Pain: Complains of pain in right upper quadrant. Neuro: Level of Consciousness is awake, alert, obeys commands, Oriented to person, place, time, situation. Cardiovascular: Capillary refill < 3 seconds Patient's skin is warm and dry. Respiratory: Airway is patent Respiratory effort is even, unlabored, Respiratory pattern is regular, symmetrical. GI: Abdomen is flat, non-distended, Reports upper abdominal pain, diarrhea, nausea, vomiting. : No signs and/or symptoms were reported regarding the genitourinary system. EENT: No signs and/or symptoms were reported regarding the EENT system. Derm: Skin is intact, is healthy with good turgor, Skin is pink, warm \T\ dry. normal. Musculoskeletal: No signs and/or symptoms reported regarding the musculoskeletal system. 00:35 Reassessment: patient instructed to keep blood pressure and pulse ox on, patient al5 refuses to keep it on. provider and charge nurse notified and aware. 01:38 Reassessment: Patient appears in no apparent distress at this time. No changes from al5 previously documented assessment. Patient and/or family updated on plan of care and expected duration. Pain level reassessed. Patient is alert, oriented x 3, equal unlabored respirations, skin warm/dry/pink. 02:47 Reassessment: Patient appears in no apparent distress at this time. No changes from al5 previously documented assessment. Patient and/or family updated on plan of care and expected duration. Pain level reassessed. Patient states feeling better. Patient states symptoms have improved. Vital Signs: 02/23 23:58 BP 123 / 78; Pulse 79; Resp 17 S; Temp 98.7; Pulse Ox 97% on R/A; Weight 63.5 kg; ha1 Height 5 ft. 2 in. ; Pain 6/10; 02/24 00:00 BP 120 / 75; Pulse 78; Resp 18; Pulse Ox 97% on R/A; al5 00:15 BP 119 / 77; Pulse 79; Resp 17; Pulse Ox 96% on R/A; al5 00:30 BP 119 / 72; Pulse 78; Resp 17; Pulse Ox 96% on R/A; al5 00:45 BP 115 / 74; Pulse 79; Resp 18; Pulse Ox 94% on R/A; al5 01:00 BP 116 / 73; Pulse 79; Resp 18; Pulse Ox 96% on R/A; al5 01:15 BP 117 / 72; Pulse 74; Resp 16; Pulse Ox 96% on R/A; al5 02:02 BP 124 / 77; Pulse 72; Resp 17; Pulse Ox 97% on R/A; al5 02:15 BP 119 / 78; Pulse 74; Resp 16; Pulse Ox 97% on R/A; al5 02/23 23:58 Body Mass Index 25.61 (63.50 kg, 157.48 cm) ha1 02/23 23:58 Pain Scale: Adult ha1 [place] Coma Score: 20:56 Eye Response: spontaneous(4). Motor Response: obeys commands(6). Verbal Response: sp4 oriented(5). Total: 15. ED Course: 02/23 23:52 Patient arrived in ED. im 02/24 00:06 Jerson Flores MD is Attending Physician. sp4 00:24 Triage completed. ha1 00:33 Leah Wiseman, TANISHA is Primary Nurse. al5 00:33 Urinalysis w/ reflexes Sent. al5 00:33 CBC with Diff Sent. al5 00:33 CMP Sent. al5 00:33 Lipase Sent. al5 00:33 Test, Urine Sent. al5 00:33 Arm band placed on right wrist. Patient placed in the treatment room, on a stretcher. al5 00:34 No provider procedures requiring assistance completed. Inserted saline lock: 20 gauge al5 in right antecubital area, using aseptic technique. Blood collected. Flushed with 10 mL NS. 00:34 Patient has correct armband on for positive identification. Placed in gown. Bed in low al5 position. Call light in reach. Side rails up X 1. Provided Education on: plan of care. 02:46 IV discontinued, intact, bleeding controlled, No redness/swelling at site. Pressure al5 dressing applied. Administered Medications: 00:47 Drug: NS 0.9% IV 1000 ml IV at 1 bolus Per protocol; to be given as a bolus over 60 br2 minutes Route: IV; Rate: 1 bolus; Site: right antecubital; 02:41 Follow up: Response: No adverse reaction; IV Status: Completed infusion; IV Intake: al5 1000ml 00:47 Drug: Diphenoxylate-Atropine PO 2 tabs PO once Route: PO; br2 02:41 Follow up: Response: No adverse reaction al5 00:48 Drug: Famotidine IVP 20 mg IVP once; dilute with 10 mL 0.9% NaCl; give over 2 minutes br2 Route: IVP; Site: right antecubital; 02:42 Follow up: Response: No adverse reaction; Pain is decreased al5 00:48 Drug: TORadol - Ketorolac IVP 30 mg IVP once Route: IVP; Site: right antecubital; br2 02:42 Follow up: Response: No adverse reaction; Pain is decreased al5 00:48 Drug: Ondansetron IVP 8 mg IVP once; over 2 minutes Route: IVP; Site: right antecubital;br2 02:42 Follow up: Response: No adverse reaction; Nausea is decreased al5 00:48 Drug: NS 0.9% IV 1000 ml IV at 1 bolus Per protocol; to be given as a bolus over 60 br2 minutes Route: IV; Rate: 1 bolus; Site: right antecubital; 02:42 Follow up: Response: No adverse reaction; IV Status: Completed infusion; IV Intake: al5 1000ml 02:41 Drug: Potassium Chloride PO 40 mEq PO once Route: PO; al5 02:41 Follow up: Response: No adverse reaction; Medication administered at discharge. al5 Medication: 00:34 VIS not applicable for this client. al5 Intake: 02:41 IV: 1000ml; Total: 1000ml. al5 02:42 IV: 1000ml; Total: 2000ml. al5 Outcome: 02:31 Discharge ordered by . sp4 02:46 Discharged to home ambulatory, with significant other, al5 02:46 Condition: good 02:46 Discharge instructions given to patient, significant other, Instructed on discharge instructions, follow up and referral plans. medication usage, Demonstrated understanding of instructions, follow-up care, medications, Prescriptions given X 3, 02:46 Patient left the ED. al5 Signatures: Dania Santana RN RN ha1 Jerson Flores MD MD sp4 Monica Valladares Amanda RN RN al5 Brooke Rosenbaum RN RN br2
--- NOTE | 2024-02-25 02:31 | EDPHYS ---
Physician Documentation [facility] Name: Eunice Griffin Age: 48 yrs Sex: Female : 1975 Arrival Date: 02/24/2024 Time: 23:49 Bed 6 Private MD: ED Physician Jerson Flores HPI: 02/24 00:06 This 48 yrs old Female presents to ER via Unassigned with complaints of Rt sp4 side abd pain,, pt has been sleeping for 2 days, General Weakness. 20:56 Patient is a 48-year-old female who presents with right-sided abdominal pain nausea sp4 vomiting. Patient also reported profuse diarrhea. . 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 - Infectious Disease History:: Denies. - Social history:: Smoking status: Patient denies any tobacco usage or history of. - Family history:: not pertinent. ROS: 02/24 20:56 Constitutional: Negative for fever, chills, and weight loss, positive for right-sided sp4 abdominal pain, generalized weakness nausea vomiting diarrhea. All other systems are negative, Exam: 20:56 Constitutional: This is a well developed, well nourished patient who is awake, alert, sp4 and in no acute distress. Head/Face: Normocephalic, atraumatic. Eyes: Pupils equal round and reactive to light, extra-ocular motions intact. Lids and lashes normal. Conjunctiva and sclera are not injected. Cornea within normal limits. Periorbital areas with no swelling, redness, or edema. ENT: Nares patent. No nasal discharge, no septal abnormalities noted. Tympanic membranes are normal and external auditory canals are clear. Oropharynx with no redness, swelling, or masses, exudates, or evidence of obstruction, uvula midline. Mucous membranes moist. Neck: Trachea midline, no thyromegaly or masses palpated, and no cervical lymphadenopathy. Supple, full range of motion without nuchal rigidity, or vertebral point tenderness. Chest/axilla: Normal chest wall appearance and motion. Nontender with no deformity. No lesions are appreciated. Cardiovascular: Regular rate and rhythm with a normal S1 and S2. No gallops, murmurs, or rubs. Normal PMI, no JVD. No pulse deficits. Respiratory: Lungs have equal breath sounds bilaterally, clear to auscultation and percussion. No rales, rhonchi or wheezes noted. No increased work of breathing, no retractions or nasal flaring. Abdomen/GI: Soft, with normal bowel sounds. No distension or tympany. No guarding or rebound. Positive for diffuse abdominal discomfort. Back: No spinal tenderness. No costovertebral tenderness. Skin: Warm, dry with normal turgor. Normal color with no rashes, no lesions, and no evidence of cellulitis. MS/ Extremity: Pulses equal, no cyanosis. Neurovascular intact. Full, normal range of motion. Neuro: Awake and alert, GCS 15, oriented to person, place, time, and situation. Cranial nerves II-XII grossly intact. Motor strength 5/5 in all extremities. Sensory grossly intact. Psych: Awake, alert, with orientation to person, place and time. Behavior, mood, and affect are within normal limits Vital Signs: 02/23 23:58 BP 123 / 78; Pulse 79; Resp 17 S; Temp 98.7; Pulse Ox 97% on R/A; Weight 63.5 kg; ha1 Height 5 ft. 2 in. ; Pain 6/10; 02/24 00:00 BP 120 / 75; Pulse 78; Resp 18; Pulse Ox 97% on R/A; al5 00:15 BP 119 / 77; Pulse 79; Resp 17; Pulse Ox 96% on R/A; al5 00:30 BP 119 / 72; Pulse 78; Resp 17; Pulse Ox 96% on R/A; al5 00:45 BP 115 / 74; Pulse 79; Resp 18; Pulse Ox 94% on R/A; al5 01:00 BP 116 / 73; Pulse 79; Resp 18; Pulse Ox 96% on R/A; al5 01:15 BP 117 / 72; Pulse 74; Resp 16; Pulse Ox 96% on R/A; al5 02:02 BP 124 / 77; Pulse 72; Resp 17; Pulse Ox 97% on R/A; al5 02:15 BP 119 / 78; Pulse 74; Resp 16; Pulse Ox 97% on R/A; al5 02/23 23:58 Body Mass Index 25.61 (63.50 kg, 157.48 cm) 1 02/23 23:58 Pain Scale: Adult ha1 [place] Coma Score: 20:56 Eye Response: spontaneous(4). Motor Response: obeys commands(6). Verbal Response: sp4 oriented(5). Total: 15. MDM: 00:07 Medical Screening Exam initiated sp4 20:58 Differential diagnosis: Dysmenorrhea, Endometriosis, gastritis, Hepatitis. Data sp4 reviewed: vital signs, nurses notes, old medical records, lab test result(s). Consideration of Admission/Observation Escalation of care including admission/observation considered. ED course: Patient markedly improved after medications. Stable for discharge home with p.o. potassium supplementation.. 02/24 00:07 Order name: CBC with Diff; Complete Time: : sp4 02/24 00:07 Order name: CMP; Complete Time: sp4 02/24 00:07 Order name: Lipase; Complete Time: sp4 02/24 00:07 Order name: Test, Urine; Complete Time: : sp4 02/24 00:07 Order name: Urinalysis w/ reflexes; Complete Time: : sp4 02/24 00:07 Order name: IV Saline Lock; Complete Time: 00 sp4 02/24 00:07 Order name: Labs collected and sent; Complete Time: 00: sp4 Administered Medications: 00:47 Drug: NS 0.9% IV 1000 ml IV at 1 bolus Per protocol; to be given as a bolus over 60 br2 minutes Route: IV; Rate: 1 bolus; Site: right antecubital; 02:41 Follow up: Response: No adverse reaction; IV Status: Completed infusion; IV Intake: al5 1000ml 00:47 Drug: Diphenoxylate-Atropine PO 2 tabs PO once Route: PO; br2 02:41 Follow up: Response: No adverse reaction al5 00:48 Drug: Famotidine IVP 20 mg IVP once; dilute with 10 mL 0.9% NaCl; give over 2 minutes br2 Route: IVP; Site: right antecubital; 02:42 Follow up: Response: No adverse reaction; Pain is decreased al5 00:48 Drug: TORadol - Ketorolac IVP 30 mg IVP once Route: IVP; Site: right antecubital; br2 02:42 Follow up: Response: No adverse reaction; Pain is decreased al5 00:48 Drug: Ondansetron IVP 8 mg IVP once; over 2 minutes Route: IVP; Site: right antecubital;br2 02:42 Follow up: Response: No adverse reaction; Nausea is decreased al5 00:48 Drug: NS 0.9% IV 1000 ml IV at 1 bolus Per protocol; to be given as a bolus over 60 br2 minutes Route: IV; Rate: 1 bolus; Site: right antecubital; 02:42 Follow up: Response: No adverse reaction; IV Status: Completed infusion; IV Intake: al5 1000ml 02:41 Drug: Potassium Chloride PO 40 mEq PO once Route: PO; al5 02:41 Follow up: Response: No adverse reaction; Medication administered at discharge. al5 Disposition Summary: 02/25/24 02:31 Discharge Ordered Notes: Location: Home sp4 Problem: new sp4 Symptoms: have improved sp4 Condition: Stable sp4 Diagnosis - Hypokalemia sp4 - Acute gastroenteritis, acute diarrheal illness sp4 Followup: sp4 - With: Private Physician - When: 7 - 10 days - Reason: Recheck today's complaints Discharge Instructions: - Discharge Summary Sheet sp4 - Clear Liquid Diet, Adult, [id number] sp4 Forms: - Patient Portal Instructions sp4 Prescriptions: - Potassium Chloride 10 mEq Oral capsule, extended release - take 2 tablet ORAL route once daily for 10 days; 20 tablet; Refills: 0, Product sp4 Selection Permitted - Lomotil 2.5-0.025 mg Oral tablet - take 1 tablet ORAL route every 6 hours As needed; 30 tablet; Refills: 0, sp4 Product Selection Permitted - ondansetron 8 mg Oral Tablet,disintegrating - take 1 tablet ORAL route every 8 hours; 30 tablet; Refills: 0, Product sp4 Selection Permitted Signatures: Dispatcher [facility] Dania Pinto, RN RN ha1 Jerson Flores MD MD sp4 Leah Wiseman RN RN al5 Brooke Rosenbaum RN RN br2
[2024-02-25] MEDS ORDERED: POTASSIUM CL SA 10 MEQ TAB PO ONE (02:32)
[2024-02-25 02:54] VITALS: TEMP 98.7
[2024-02-25 03:03] VITALS: O2SAT 97
[2024-02-25 03:04] VITALS: BP 119/78
== END 2024-02-25 02:46 | disposition home or self-care (01) ==
LOC: ER 23:49
DX: K52.9 Noninfective gastroenteritis and colitis, unspecified (principal); E87.6 Hypokalemia
CPT/HCPCS: 85025; 81001; 36415; 81025; 83690; 80053; J2405; J7030; 96361; 96374; 96375; 99284

== ENCOUNTER 2024-03-19 16:45 | Emergency (ER) | payer BC ==
--- OUTSIDE RECORDS SUMMARY | 2024-03-19 16:48 | XMS REPORT | Continuity of Care Document ---
Author Name Unknown Address [address] [facility] [address] [place] [address] [facility] thconnect Address [address] 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 Name Role Phone Pcp, Patient Does Not Have A Primary Care Physic rekha [email or web address] Attending Clinician Unavaila MAXX Davies Attending Clinician Unavailabl MILEY Baird Attending Clinician Unavailable Beatrice SUPERVIS[employer] FURNA[employer] ROOMMiley Gleason Attending Clinician [phone] Lon Wilkinson Attending Clinician [phone] Doctor Unassigned, Turrell Attending Clinician U navailLON De Jesus Attending Clinician Unavailable Lab, Adc Fam Pob I Attending Clinician Unavailab le [email or web address]_S Admitting Clinician Unavaila ble Payers Payer Name Policy Type Policy Number Effective Date Expirati on Date Source [facility] STATE [id number] 2020 00:00:00 Problems Condition Name Condition Details Condition Category Status Onset Date Resolution Date Last Treatment Date Treating Clinician Comments Source Hypothyroi dism Hypothyroi dism Problem Active 08-25 00:00: 00 [facility] Type 2 diabetes mellitus Type 2 Diabetes Mellitus Problem Active 08-25 00:00: 00 [facility] Anxiety Anxiety Problem Active 08-25 00:00: 00 [facility] Menopausal symptom Menopausal Symptom Problem Active 08-25 00:00: 00 [facility] Screening mammograph y Screening Mammograph y Problem Active 08-10 00:00: 00 [facility] 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 Active 08-10 00:00: 00 [facility] Acute pain of left shoulder Acute pain of left shoulder Disease Active 11-13 00:00: 00 [facility] Acute pain of left shoulder Acute pain of left shoulder Disease Active 11-13 00:00: 00 [facility] Allergies, Adverse Reactions, Alerts Allergy Name Allergy Type Status Severity Reaction(s) Onset Date Inactive Date Treating Clinician Comments Source Nitrofur antoin Monohyd/ M-Cryst Propensi ty to adverse reaction s Active Hives 10-30 00:00: 00 [facility] NITROFUR ANTOIN MONOHYD/ M-CRYST DRUG Active Med Hiv 8 00:00: 00 [facility] Latex Allergy to substanc e Active Rash [facility] NO KNOWN ALLERGIE S Drug Class Active [facility] Social History Social Habit Start Date Stop Date Quantity Comments Source History of tobacco use Light tobacco smoker [facility] Exposure to SARS-CoV-2 (event) 2021-02-18 00:00:00 2021-03-20 09:50:00 Not sure [facility] History of Social function 2020-11-02 00:00:00 2020-11-02 00:00:00 [facility] Alcohol intake 2020-10-30 00:00:00 2020-10-30 00:00:00 Current non-drinker of alcohol (finding) [facility] Tobacco use and exposure 2016-11-13 00:00:00 2016-11-13 00:00:00 Smokeless tobacco non-user [facility] Sex Assigned At 1975 00:00:00 1975 00:00:00 [facility] Smoking Status Start Date Stop Date Source Light tobacco smoker 2016-11-13 00:00:00 [facility] Medications Ordered Medication Name Filled Medication Name Start Date Stop Date Current Medication? Ordering Clinician Indication Dosage Frequency Signature (SIG) Comments Components Source acetaminoph en (TYLENOL) tablet 650 mg 2020-03 16:45: 00 03-20 15:50 :25 No 650mg [facility] amoxicillin -clavulanat e 875-125 mg per tablet 2020-03 00:00: 00 03-31 05:59 :00 No [id number] 1{tbl} Take 1 tablet by mouth 2 (two) times daily for 10 days. [facility] fluconazole (DIFLUCAN) 150 mg tablet 2020-03 00:00: 00 03-21 05:59 :00 No [id number] 150mg Take 1 tablet by mouth once now for 1 dose. [facility] levothyroxi ne 125 mcg tablet 10-28 00:00: 00 Yes [facility] etodolac 500 mg tablet 11-09 00:00: 00 Yes [facility] methylPREDN ISolone 4 mg tablets 11-09 00:00: 00 Yes [facility] cyclobenzap rine 10 mg tablet 11-08 00:00: 00 Yes [facility] TRULICITY 1.5 mg/0.5 mL PnIj 11-08 00:00: 00 Yes [facility] buPROPion XL 300 mg 24 hr tablet 10-15 00:00: 00 Yes [facility] metFORMIN 1,000 mg tablet 10-15 00:00: 00 Yes [facility] PNEUMOVAX 23 25 mcg/0.5 mL Syrg 09-10 00:00: 00 Yes [facility] promethazin e-codeine 6.25-10 mg/5 mL syrup 08-25 00:00: 00 Yes [facility] candesartan 32 mg tablet Take 1 [...] Systolic blood pressure 2021-03-20 15:56:00 144 mm[Hg] [facility] Diastolic blood pressure 2021-03-20 15:56:00 83 mm[Hg] [facility] Heart rate 2021-03-20 15:35:00 83 /min [facility] Body temperature 2021-03-20 15:35:00 36.33 Myesha [facility] Respiratory rate 2021-03-20 15:35:00 18 /min [facility] Body height 2021-03-20 15:35:00 157.5 cm [facility] Body weight 2021-03-20 15:35:00 84.188 kg [facility] BMI 2021-03-20 15:35:00 33.95 kg/m2 [facility] Oxygen saturation in Arterial blood by Pulse oximetry 2021-03-20 15:35:00 97 /min [facility] Systolic blood pressure 2020-10-30 16:34:00 136 mm[Hg] [facility] Diastolic blood pressure 2020-10-30 16:34:00 86 mm[Hg] [facility] Heart rate 2020-10-30 16:29:00 103 /min [facility] Body temperature 2020-10-30 16:29:00 38.56 Myesha [facility] Respiratory rate 2020-10-30 16:29:00 18 /min [facility] Body height 2020-10-30 16:29:00 157.5 cm [facility] Body weight 2020-10-30 16:29:00 81.647 kg [facility] BMI 2020-10-30 16:29:00 32.92 kg/m2 [facility] Oxygen saturation in Arterial blood by Pulse oximetry 2020-10-30 16:29:00 95 /min [facility] Procedures Procedure Date / Time Performed Performing Clinician Source MAMMO, screening, digital, bilateral 2023-08-26 00:00:00 [facility] CONSENT/REFUSAL FOR DIAGNOSIS AND TREATMENT 2020-11-02 05:01:00 Doctor Unassigned, Turrell [facility] Tubal Ligation [facility] Procedure [facility] Kidney [facility] Encounters Start Date/Time End Date/Time Encounter Type Admission Type Attending Clinicians Care Facility Care Department Encounter ID Source 2023-08-26 00:00:00 2023-08-26 00:00:00 Ashley Medina, SUPERVISOR FURNACE ROOM: [address], [place] [address] , Ph. [facility] - GC_GCBZW_Tasha [facility]* [id number] [facility] 2023-01-27 00:00:00 2023-01-27 00:00:00 Outpatient GC_GCBZW_Erica tucker_Julio [facility] [id number] [facility] 2022-10-30 00:00:00 2022-10-30 00:00:00 Outpatient MAXX YANES [facility] [id number] [facility] 2022-10-02 00:00:00 2022-10-02 00:00:00 Outpatient R MAXX COHN [facility] [id number] [facility] 2021-03-20 09:00:00 2021-03-20 10:13:44 Outpatient R BEATRICENEELAY [facility] [id number] [facility] 2021-03-20 09:00:00 2021-03-20 09:20:00 Urgent Care BeatriceMiley Randalherman, [facility] [id number] [facility] 2020-11-02 10:30:00 2020-11-02 10:30:00 Outpatient R [facility] [id number] [facility] 2020-11-02 00:00:00 2020-11-02 00:00:00 Orders Only Doctor Unassigned, Turrell [facility] [id number] [facility] 2020-11-01 00:00:00 2020-11-01 00:00:00 Patient Secure Msg Doctor Unassigned, Turrell [facility] [id number] [id number] [id number] [facility] 2020-10-30 11:17:17 2020-10-30 11:37:17 Urgent Care [facility]elanish [facility], [facility] [id number] [id number] [facility] 2020-10-30 11:20:00 2020-10-30 11:20:00 Outpatient R LON VASQUEZ [facility] [id number] [facility] 2020-10-30 00:00:00 2020-10-30 00:00:00 Telephone Beatrice [facility] .[id number] [facility] 2020-03-18 17:34:34 2020-03-18 17:54:34 Laboratory Only [facility] ..114 [id number] [facility] 2020-03-18 17:40:00 2020-03-18 17:40:00 Outpatient R BEATRICE [facility] [id number] [facility] 2020-03-18 00:00:00 2020-03-18 00:00:00 Letter (Out) Doctor Unassigned, Turrell [facility] ..114 [id number] [id number] [id number] [facility]
[2024-03-19] MEDS ORDERED: ASPIRIN 81 MG CHEWABLE TABLET ONE (17:25)
[2024-03-19] MEDS ORDERED: NITROGLYCERIN 0.4 MG/TAB SL ONE (17:26)
[2024-03-19] MEDS ORDERED: NA CHLORIDE 0.9% 500 ML ONE (17:26)
[2024-03-19 17:48] LABS: Absolute Basophils 0.1 K/uL (0-0.5); Absolute Eosinophils 0.3 K/uL (0-0.5); Absolute Lymphocytes (CBC) 3.9 K/uL (0.7-4.9); Absolute Monocytes 0.8 K/uL (0.1-1.3); Absolute Neutrophil 5.4 K/uL (1.8-8.0); Basophils % 0.6 % (0-1.3); Eosinophils % 3.3 % (0-4.4); Hematocrit 39.3 % (36.0-45.0); Lymphocytes % 37.4 % (15.3-44.8); MCH 31.4 pg (27.0-35.0); MCHC 33.2 g/dL (32.0-36.0); MCV 94.5 fL (80-100); MPV 8.5 fL (7.6-11.3); Monocytes % 7.2 % (3.3-12.3); Neutrophils % 51.5 % (41.7-73.7); Platelets 289 thou/uL (152-406); RBC Red Blood Cell Count 4.15 M/uL (3.86-4.86); Red Cell Distribution Width 13.3 % (12.1-15.2)
[2024-03-19 18:00] LABS: PT Prothrombin Time 11.5 SECONDS (9.4-12.5); Protime INR 1.03
--- NOTE | 2024-03-19 18:02 | RAD REPORT ---
EXAMINATION: ONE VIEW CHEST XR CLINICAL INDICATION: CHEST PAIN TECHNIQUE: Frontal chest projection is submitted. Examination is limited by patient positioning and t echnique. COMPARISON: No prior exam. FINDINGS: The lungs are well inflated and clear. The heart is normal in size. No displaced fractures identified . ACDF in the cervical spine. IMPRESSION: No acute intrathoracic abnormalities.
[2024-03-19 18:07] LABS: ALT/SGPT 30 U/L (13-56); AST/SGOT 14 U/L (15-37); Albumin 3.6 g/dL (3.4-5.0); Albumin/Globulin Ratio 1.1 (1.1-1.8); Alkaline Phosphatase 62 U/L (45-117); Anion Gap 8.4 mEq/L (5.0-15.0); BUN Blood Urea Nitrogen 9 mg/dL (7-18); Bicarbonate 27 mEq/L (21-32); Bilirubin Total 0.3 mg/dL (0.2-1.0); Globulin 3.2 g/dL (2.3-3.5); Glomerular Filtration Rate 107 ml/min (=/>90); Glucose Level 108 mg/dL (74-106); NT PRO-BNP 45 pg/mL (<125); Potassium 3.4 mEq/L (3.5-5.1); Protein, Total 6.8 g/dL (6.4-8.2); Sodium Level 139 mEq/L (136-145); Troponin High Sensitivity 3.7 pg/mL (<58.9)
[2024-03-19 18:08] LABS: Bilirubin Direct < 0.2 mg/dL (0-0.2); Bilirubin Indirect, Calculated 0.1 mg/dL (0.2-0.8)
[2024-03-19] MEDS ORDERED: FAMOTIDINE 20 MG/2 ML VIAL IV ONE (18:37)
[2024-03-19] MEDS ORDERED: POTASSIUM 25 MEQ EFFERV TAB ONE (18:37)
[2024-03-19] MEDS ORDERED: MORPHINE 4 MG/ML SYR ONE (18:37)
[2024-03-19] MEDS ORDERED: NA CHLORIDE 0.9% 1,000 ML ONE (18:37)
--- NOTE | 2024-03-19 20:53 | ER ---
Nurse's Notes [facility] Name: Eunice Griffin Age: 48 yrs Sex: Female : 1975 Arrival Date: 03/19/2024 Time: 16:45 Bed 8 Private MD: Diagnosis: Chest pain, unspecified Presentation: 03/19 17:16 Chief complaint: Patient states: Pain in center of chest that started at approx 1330 ph while at work, worse w/ deep breathing, denies N/V, dizziness cough, or fever. Coronavirus screen: Vaccine status: Patient reports being unvaccinated. Ebola Screen: No symptoms or risks identified at this time. Initial Sepsis Screen: Does the patient meet any 2 criteria? No. Patient's initial sepsis screen is negative. Does the patient have a suspected source of infection? No. Patient's initial sepsis screen is negative. Risk Assessment: Do you want to hurt yourself or someone else? Patient reports no desire to harm self or others. Onset of symptoms was March 19, 2024. 17:16 Method Of Arrival: Ambulatory ph 17:16 Acuity: BEBO 2 ph Triage Assessment: 17:19 General: Appears in no apparent distress. comfortable, well groomed, Behavior is calm, ph cooperative, appropriate for age. Pain: Complains of pain in mid-sternal area Pain radiates to back. Neuro: Level of Consciousness is awake, alert, obeys commands, Oriented to person, place, time, situation, Reports headache. Cardiovascular: Reports chest pain, Capillary refill < 3 seconds in bilateral fingers Patient's skin is warm and dry. Chest pain quality is squeezing, is located in substernal area radiates back is aggravated by breathing. Cardiovascular: Rhythm is sinus rhythm. Respiratory: Reports pain with respiration Onset: The symptoms/episode began/occurred today, the patient has mild shortness of breath. GI: No signs and/or symptoms were reported involving the gastrointestinal system. Derm: Skin is pink, warm \T\ dry. 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 - Infectious Disease History:: Denies. - Social history:: Smoking status: Reported history of juuling and/or vaping. Screenin:19 [facility] ED Fall Risk Assessment (Adult) History of falling in the last 3 months, ph including since admission No falls in past 3 months (0 pts) Confusion or Disorientation No (0 pts) Intoxicated or Sedated No (0 pts) Impaired Gait No (0 pts) Mobility Assist Device Used No (0 pt) Altered Elimination No (0 pt) Score/Fall Risk Level 0 - 2 = Low Risk Oriented to surroundings, Maintained a safe environment, Hourly rounding (assess needs \T\ fall precautionary measures) done. Abuse screen: Denies threats or abuse. Denies injuries from another. Nutritional screening: No deficits noted. Tuberculosis screening: No symptoms or risk factors identified. Assessment: 17:44 General: SEE TRIAGE ASSESSMENT. ph 20:28 General: Appears in no apparent distress. comfortable, Behavior is calm, cooperative, cp4 appropriate for age. Pain: Complains of pain in chest and mid-sternal area Pain currently is 2 out of 10 on a pain scale. Neuro: Level of Consciousness is awake, alert, obeys commands, Oriented to person, place, time, situation. Cardiovascular: Patient's skin is warm and dry. Rhythm is sinus rhythm. Respiratory: Airway is patent Respiratory effort is even, unlabored, Breath sounds are clear bilaterally. GI: No signs and/or symptoms were reported involving the gastrointestinal system. : No signs and/or symptoms were reported regarding the genitourinary system. EENT: No signs and/or symptoms were reported regarding the EENT system. Derm: No signs and/or symptoms reported regarding the dermatologic system. Musculoskeletal: No signs and/or symptoms reported regarding the musculoskeletal system. Vital Signs: 17:16 BP 147 / 88 LA; Pulse 78; Resp 18; Temp 97.8; Pulse Ox 99% on R/A; Weight 64.86 kg; ph Height 5 ft. 2 in. ; 17:16 BP 131 / 85 RA; ph 17:44 BP 123 / 80; Pulse 81; Resp 18; Pulse Ox 99% on R/A; ph 18:49 BP 122 / 79; Pulse 81; Resp 18; Pulse Ox 98% on R/A; ph 20:00 BP 127 / 79; Pulse 65; Resp 18; Pulse Ox 98% ; vc1 21:23 BP 113 / 71; Pulse 76; Resp 18; Pulse Ox 98% ; cp4 17:16 Body Mass Index 26.15 (64.86 kg, 157.48 cm) ph ED Course: 16:47 Patient arrived in ED. im 16:47 Jesus Alberto Glez PA is PHCP. cp 16:47 Jesus Alberto Sneed MD is Attending Physician. cp 17:01 Flores Miner, TANISHA is Primary Nurse. ph 17:18 Triage completed. ph 17:19 Arm band placed on Patient placed in an exam room, on a stretcher, on satellite project site monitor, ph on pulse oximetry. 17:20 Patient has correct armband on for positive identification. Bed in low position. Call ph light in reach. Side rails up X 1. Client placed on continuous cardiac and pulse oximetry monitoring. NIBP monitoring applied. Pulse ox on. Door closed. Noise minimized. Warm blanket given. Pillow given. 17:44 Initial lab(s) drawn, by me, sent to lab. EKG done, by ED staff, reviewed by Jesus Alberto REYNOLDS. Inserted saline lock: 22 gauge in right antecubital area, using aseptic technique. Blood collected. Flushed with 10 mL NS. 17:50 XRAY Chest (1 view) In Process Unspecified. EDMS 20:24 Troponin High Sensitivity Sent. kmf 20:28 No provider procedures requiring assistance completed. cp4 20:48 Sean Maloney MD is Referral Physician. cp 21:23 Provided Education on: chest pain. cp4 21:23 intact, bleeding controlled, No redness/swelling at site. Pressure dressing applied. cp4 Administered Medications: 17:44 Drug: Aspirin PO Chewable Tablet 324 mg PO once; 81 mg tablets x 4 Route: PO; ph 17:44 Drug: Nitroglycerin Sublingual 0.4 mg Sublingual once Route: Sublingual; ph 18:47 Follow up: Response: No adverse reaction; Pain is unchanged, physician notified ph 17:44 Drug: NS 0.9% IV 500 ml IV at bolus once; to be given as a bolus over 30 minutes Route: ph IV; Rate: bolus; Site: right antecubital; 18:15 Follow up: Response: No adverse reaction; IV Status: Completed infusion; IV Intake: ph 500ml 18:46 Drug: NS 0.9% IV 1000 ml IV at 1000 ml once; to be given as a bolus over 60 minutes ph Route: IV; Rate: 1000 ml; Site: right antecubital; 21:22 Follow up: IV Status: Completed infusion cp4 18:46 Drug: morphine IVP or IV 4 mg IVP once over 4 mins Route: IVP; Infused Over: 4 mins; ph Site: right antecubital; 18:48 Follow up: Response: No adverse reaction ph 18:46 Drug: Famotidine IVP 20 mg IVP once; dilute with 10 mL 0.9% NaCl; give over 2 minutes ph Route: IVP; Site: right antecubital; 18:47 Follow up: Response: No adverse reaction ph 18:47 Drug: Potassium PO Effervescent Tablet 25 mEq PO once; dissolve in 4 ounces of water or ph juice Route: PO; 18:47 Follow up: Response: No adverse reaction ph Medication: 17:20 VIS not applicable for this client. ph Intake: 18:15 IV: 500ml; Total: 500ml. ph Outcome: 20:52 Discharge ordered by MD. cp 21:23 Discharged to home ambulatory, cp4 21:23 Condition: stable 21:23 Discharge instructions given to patient, family, Instructed on discharge instructions, follow up and referral plans. Demonstrated understanding of instructions, follow-up care, 21:24 Patient left the ED. cp4 Signatures: Dispatcher [employer] Flores Kearns RN RN ph Page, Corey, PA PA cp Calcote, Vanessa, RN RN vc1 Monica Valladares Christina cp4 Yane De [facility]
--- NOTE | 2024-03-19 20:53 | EDPHYS ---
Physician Documentation [facility] Name: Eunice Griffin Age: 48 yrs Sex: Female : 1975 Arrival Date: 03/19/2024 Time: 16:45 Bed 8 Private MD: ED Physician Jesus Alberto Sneed HPI: 03/19 17:00 This 48 yrs old Female presents to ER via Ambulatory with complaints of Shortness Of cp Breath, Chest Pressure. 17:00 The patient has shortness of breath with light activity. Onset: The symptoms/episode cp began/occurred today, while at work at about 1330. 17:00 Duration: The symptoms are continuous, and are unchanged since they started. Associated cp signs and symptoms: Pertinent positives: chest pain, described as pressure, Pertinent negatives: abdominal pain, congestion, diarrhea, fever, headache, vomiting, wheezing. 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 - Infectious Disease History:: Denies. - Social history:: Smoking status: Reported history of juuling and/or vaping. ROS: 17:05 Constitutional: Negative for body aches, chills, fever, poor PO intake, cp 17:05 Eyes: Negative for injury, pain, redness, and discharge, cp 17:05 ENT: Negative for drainage from ear(s), ear pain, sore throat, difficulty swallowing, difficulty handling secretions, 17:05 Cardiovascular: Positive for chest pain, Negative for edema, palpitations, 17:05 Respiratory: Positive for shortness of breath, Negative for cough, wheezing, 17:05 Abdomen/GI: Negative for abdominal pain, vomiting, diarrhea, constipation, 17:05 Neuro: Negative for altered mental status, dizziness, headache, numbness, syncope, near syncope, weakness, 17:05 All other systems are negative, Exam: 17:07 ECG was reviewed by the Attending Physician. cp 17:10 Constitutional: The patient appears in no acute distress, alert, awake, cp non-diaphoretic, non-toxic, well developed, well nourished, uncomfortable, 17:10 Head/Face: Normocephalic, atraumatic. cp 17:10 Eyes: Periorbital structures: appear normal, Conjunctiva: normal, no exudate, no injection, Sclera: no appreciated abnormality, Lids and lashes: appear normal, bilaterally, 17:10 ENT: External ear(s): are unremarkable, Nose: is normal, Mouth: Lips: moist, Oral mucosa: pink and intact, moist, Posterior pharynx: Airway: no evidence of obstruction, patent, Voice: is normal, 17:10 Neck: ROM/movement: is normal, is supple, without pain, no range of motions limitations, 17:10 Chest/axilla: Inspection: normal, 17:10 Cardiovascular: Rate: normal, Rhythm: regular, Edema: is not appreciated, JVD: is not appreciated, 17:10 Respiratory: the patient does not display signs of respiratory distress, Respirations: normal, no use of accessory muscles, labored breathing, is not present, Breath sounds: are clear throughout, no decreased breath sounds, no stridor, no wheezing, 17:10 Abdomen/GI: Inspection: abdomen appears normal, Palpation: abdomen is soft and non-tender, in all quadrants, 17:10 Back: ROM is normal, 17:10 Neuro: Orientation: to person, place \T\ time. Mentation: is normal, Motor: moves all fours, strength is normal, Sensation: is normal, 20:33 ECG was reviewed by the Attending Physician. cp Vital Signs: 17:16 BP 147 / 88 LA; Pulse 78; Resp 18; Temp 97.8; Pulse Ox 99% on R/A; Weight 64.86 kg; ph Height 5 ft. 2 in. ; 17:16 BP 131 / 85 RA; ph 17:44 BP 123 / 80; Pulse 81; Resp 18; Pulse Ox 99% on R/A; ph 18:49 BP 122 / 79; Pulse 81; Resp 18; Pulse Ox 98% on R/A; ph 20:00 BP 127 / 79; Pulse 65; Resp 18; Pulse Ox 98% ; vc1 21:23 BP 113 / 71; Pulse 76; Resp 18; Pulse Ox 98% ; cp4 17:16 Body Mass Index 26.15 (64.86 kg, 157.48 sandeep) ph MDM: 16:52 Medical Screening Exam initiated cp 20:51 Data reviewed: vital signs, nurses notes, lab test result(s), EKG, radiologic studies, cp plain films, and as a result, I will discharge patient. 20:51 Consideration of Admission/Observation Escalation of care including cp admission/observation considered. I considered the following discharge prescriptions or medication management in the emergency department Medications were administered in the Emergency Department. See MAR. Independent interpretation of the following test(s) in the Emergency Department EKG: See my EKG interpretation above. Test considered but Not performed: CT: chest. Care significantly affected by the following chronic conditions: Diabetes, Hypertension. Counseling: I had a detailed discussion with the patient and/or guardian regarding the historical points, exam findings, and any diagnostic results supporting the discharge/admit diagnosis, lab results, radiology results, the need for outpatient follow up, a mallet cutter, to return to the emergency department if symptoms worsen or persist or if there are any questions or concerns that arise at home. Response to treatment: the patient's symptoms have markedly improved after treatment, and as a result, I will discharge patient. ED course: VSS. Discussed results of today's testing and consideration for continued observation, patient declines and understands she can return at any time for reevaluation. 03/19 17:10 Order name: Basic Metabolic Panel; Complete Time: 18:17 cp 03/19 18:17 Interpretation: Normal except: K 3.4; GLUC 108. cp 03/19 17:10 Order name: CBC with Diff; Complete Time: 18:17 cp 03/19 17:10 Order name: LFT's; Complete Time: 18:17 cp 03/19 18:17 Interpretation: Normal except: AST 14; IBILI, CALC 0.1. cp 03/19 17:10 Order name: Magnesium; Complete Time: 18:17 cp 03/19 17:10 Order name: NT PRO-BNP; Complete Time: 18:17 cp 03/19 17:10 Order name: PT-INR; Complete Time: 18:17 cp 03/19 17:10 Order name: Troponin HS; Complete Time: 18:17 cp 03/19 18:47 Order name: D-Dimer; Complete Time: 20:45 cp 03/19 20:12 Order name: Troponin High Sensitivity; Complete Time: 20:45 cp 03/19 17:10 Order name: XRAY Chest (1 view); Complete Time: 18:17 cp 03/19 17:10 Order name: EKG; Complete Time: 17:10 cp 03/19 17:10 Order name: Blood Pressure Recheck: bilateral upper extremity; Complete Time: 17:21 cp 03/19 17:10 Order name: Cardiac monitoring; Complete Time: 17:21 cp 03/19 17:10 Order name: EKG - Nurse/Tech; Complete Time: 17:21 cp 03/19 17:10 Order name: IV Saline Lock; Complete Time: 17:43 cp 03/19 17:10 Order name: Labs collected and sent; Complete Time: 17:43 cp 03/19 17:10 Order name: O2 Per Protocol; Complete Time: 17: cp 03/19 17:10 Order name: O2 Sat Monitoring; Complete Time: 17: cp 03/19 20:12 Order name: EKG - Nurse/Tech; Complete Time: 20:27 cp EC:07 Rate is 80 beats/min. Rhythm is regular. KY interval is normal. QRS interval is normal. cp QT interval is normal. T waves are Inverted in lead aVR. Interpreted by me. Reviewed by me. 20:33 Rate is 60 beats/min. Rhythm is regular. KY interval is normal. QRS interval is normal. cp QT interval is normal. T waves are Inverted in lead aVR. Interpreted by me. Reviewed by me. Administered Medications: 17:44 Drug: Aspirin PO Chewable Tablet 324 mg PO once; 81 mg tablets x 4 Route: PO; ph 17:44 Drug: Nitroglycerin Sublingual 0.4 mg Sublingual once Route: Sublingual; ph 18:47 Follow up: Response: No adverse reaction; Pain is unchanged, physician notified ph 17:44 Drug: NS 0.9% IV 500 ml IV at bolus once; to be given as a bolus over 30 minutes Route: ph IV; Rate: bolus; Site: right antecubital; 18:15 Follow up: Response: No adverse reaction; IV Status: Completed infusion; IV Intake: ph 500ml 18:46 Drug: NS 0.9% IV 1000 ml IV at 1000 ml once; to be given as a bolus over 60 minutes ph Route: IV; Rate: 1000 ml; Site: right antecubital; 21:22 Follow up: IV Status: Completed infusion cp4 18:46 Drug: morphine IVP or IV 4 mg IVP once over 4 mins Route: IVP; Infused Over: 4 mins; ph Site: right antecubital; 18:48 Follow up: Response: No adverse reaction ph 18:46 Drug: Famotidine IVP 20 mg IVP once; dilute with 10 mL 0.9% NaCl; give over 2 minutes ph Route: IVP; Site: right antecubital; 18:47 Follow up: Response: No adverse reaction ph 18:47 Drug: Potassium PO Effervescent Tablet 25 mEq PO once; dissolve in 4 ounces of water or ph juice Route: PO; 18:47 Follow up: Response: No adverse reaction ph Disposition Summary: 03/19/24 20:52 Discharge Ordered Notes: Location: Home cp Condition: Stable cp Diagnosis - Chest pain, unspecified cp Followup: cp - With: Sean Maloney MD - When: 5 - 6 days - Reason: Recheck today's complaints Discharge Instructions: - Discharge Summary Sheet cp - Nonspecific Chest Pain, Adult cp - Aspirin and Your Heart cp Forms: - Medication Reconciliation Form cp - Antibiotic Education cp - Prescription Opioid Use cp - Patient Portal Instructions cp - Leadership Thank You Letter cp Addendum: 03/23/2024 12:42 Co-signature as Attending Physician, Jesus Alberto Sneed MD I agree with the assessment and c clemente plan of care. Signatures: Dispatcher [employer] Jesus Alberto Arceo MD MD cha Hall, Patricia, RN RN ph Amaris, Jesus Alberto PA PA Elda Laguna cp4 Corrections: (The following items were deleted from the chart) 03/19 18:47 18:47 D-DIMER+COAG.LAB.BRZ ordered. EDHI EDHI 18:47 18:47 LAB ADD ON+C.LAB.BRZ ordered. EDHI EDHI 03/20 15:59 12 20:33 ECG was reviewed by the Attending Physician. [facility] 03/20 15:59 12 20:33 Rate is 60 beats/min. Rhythm is regular. KY interval is normal. QRS cp interval is normal. QT interval is normal. T waves are Inverted in lead aVR. Interpreted by me. Reviewed by me. cp
[2024-03-19 21:48] VITALS: TEMP 97.8
[2024-03-19 21:50] VITALS: O2SAT 98
[2024-03-19 21:53] VITALS: BP 113/71
--- NOTE | 2024-03-20 11:07 | EKG ---
Test Date: 2024-03-19 Test Time: 20:25:00 Automatic Seamer: ALESSANDRO MEASUREMENT RESULTS: Intervals: Rate: 60 AR: 158 QRSD: 80 QT: 422 QTc: 422 Mcgrann: P: 74 AR: 158 QRS: 67 T: 48 INTERPRETIVE STATEMENTS: Normal sinus rhythm Normal ECG Compared to ECG 10/20/2018 07:20:39 Sinus arrhythmia no longer present Electronically Signed On 03-20-24 11:06:46 WAN SUPPORT SPECIALIST by Jermaine Wilkerson
--- NOTE | 2024-03-24 13:49 | EKG ---
Test Date: 2024-03-19 Test Time: 17:01:32 Barber Tool Sharpener: SLOAN MEASUREMENT RESULTS: Intervals: Rate: 80 WV: 156 QRSD: 84 QT: 380 QTc: 438 [place]: P: 75 WV: 156 QRS: 82 T: 60 INTERPRETIVE STATEMENTS: Normal sinus rhythm Normal ECG Compared to ECG 10/20/2018 07:20:39 Sinus arrhythmia no longer present Electronically Signed On 03-24-24 13:39:17 PROGRAM DIRECTOR AIR TALENT by Sean Maloney
== END 2024-03-19 21:24 | disposition home or self-care (01) ==
LOC: ER 16:45
DX: R07.89 Other chest pain (principal); R06.02 Shortness of breath; I10 Essential (primary) hypertension
CPT/HCPCS: 96361; 93005 ×2; 85025; 80048; 36415; 83735; 85610; 85379; 80076; 84484 ×2; 83880; 71045; 96375; 96374; 99285; J7040; J7030

== ENCOUNTER 2024-05-31 09:36 | Emergency (ER) | payer BC ==
--- OUTSIDE RECORDS SUMMARY | 2024-05-31 09:39 | XMS REPORT | Continuity of Care Document ---
Author Name Unknown Address [address] [facility] [place] [address] [facility] thconnect Address [address] [facility] [place] [address] Care Team Providers Care Research Electrician Name Role Phone Trenton Ross Alena Primary Care Physician [phone] Doctor Unassigned, [place] Attending Clinician U navailable [email or web address] Attending Clinician Unavaila MAXX Davies Attending Clinician Unavailabl MILEY Baird Attending Clinician Unavailable Beatrice EKG TECHNICIANMiley Attending Clinician [phone] EbLon Marques Attending Clinician [phone] Doctor Unassigned, [place] Attending Clinician U navailLON De Jesus Attending Clinician Unavailable Lab, Adc Fam Pob I Attending Clinician Unavailab le [email or web address] Admitting Clinician Unavaila ble Payers Payer Name Policy Type Policy Number Effective Date Expirati on Date Source BCBS [facility] [id number] 2020 00:00:00 Problems Condition Name Condition Details Condition Category Status Onset Date Resolution Date Last Treatment Date Treating Clinician Comments Source Hypothyroi dism Hypothyroi dism Problem Active 08-25 00:00: 00 [facility] Type 2 diabetes mellitus Type 2 Diabetes Mellitus Problem Active 08-25 00:00: 00 [facility] Anxiety Anxiety Problem Active 08-25 00:00: 00 [facility] Menopausal symptom Menopausal Symptom Problem Active 08-25 00:00: 00 [facility] Screening mammograph y Screening Mammograph y Problem Active 08-10 00:00: 00 [facility] 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 Active 08-10 00:00: 00 [facility] Acute pain of left shoulder Acute pain of left shoulder Disease Active 11-13 00:00: 00 [facility] Acute pain of left shoulder Acute pain of left shoulder Disease Active 11-13 00:00: 00 [facility] Allergies, Adverse Reactions, Alerts Allergy Name Allergy Type Status Severity Reaction(s) Onset Date Inactive Date Treating Clinician Comments Source Nitrofur antoin Monohyd/ M-Cryst Propensi ty to adverse reaction s Active Hives 10-30 00:00: 00 [facility] NITROFUR ANTOIN MONOHYD/ M-CRYST DRUG Active Med [facility] 10-30 00:00: 00 [facility] Latex Allergy to substanc e Active Rash [facility] NO KNOWN ALLERGIE S Drug Class Active [facility] Social History Social Habit Start Date Stop Date Quantity Comments Source History of tobacco use Light tobacco smoker [facility] to SARS-CoV-2 (event) 2021-02-18 00:00:00 2021-03-20 09:50:[address] [facility] History of Social function 2020-11-02 00:00:00 2020-11-02 00:00:00 [facility] Alcohol intake 2020-10-30 00:00:00 2020-10-30 00:00:00 Current non-drinker of alcohol (finding) [facility] Alcoholic beverage intake 2016-11-13 00:00:00 2016-11-13 00:00:00 Current non-drinker of alcohol (finding) [facility] Tobacco use and exposure 2016-11-13 00:00:00 2016-11-13 00:00:00 Smokeless tobacco non-user [facility] Sex assigned at 1975 00:00:00 1975 00:00:00 [facility] Smoking Status Start Date Stop Date Source Light tobacco smoker 2016-11-13 00:00:00 [facility] Medications Ordered Medication Name Filled Medication Name Start Date Stop Date Current Medication? Ordering Clinician Indication Dosage Frequency Signature (SIG) Comments Components Source acetaminoph en (TYLENOL) tablet 650 mg 2020-03 16:45: 00 03-20 15:50 :25 No 650mg [facility] amoxicillin -clavulanat e 875-125 mg per tablet 2020-03 00:00: 00 03-31 05:59 :00 No [id number] 1{tbl} Take 1 tablet by mouth 2 (two) times daily for 10 days. [facility] fluconazole (DIFLUCAN) 150 mg tablet 2020-03 00:00: 00 03-21 05:59 :00 No [id number] 150mg Take 1 tablet by mouth once now for 1 dose. [facility] levothyroxi ne 125 mcg tablet 10-28 00:00: 00 Yes [facility] etodolac 500 mg tablet 11-09 00:00: 00 Yes [facility] methylPREDN ISolone 4 mg tablets 11-09 00:00: 00 Yes [facility] cyclobenzap rine 10 mg tablet 11-08 00:00: 00 Yes [facility] TRULICITY 1.5 mg/0.5 mL PnIj 11-08 00:00: 00 Yes [facility] buPROPion XL 300 mg 24 hr tablet 10-15 00:00: 00 Yes [facility] metFORMIN 1,000 mg tablet 10-15 00:00: 00 Yes [facility] PNEUMOVAX 23 25 mcg/0.5 mL Syrg 09-10 00:00: 00 Yes [facility] promethazin e-codeine 6.25-10 mg/5 mL syrup 08-25 00:00: 00 Yes [facility] candesartan 32 mg tablet Take 1 tablet [...] 1 capsule every day by oral route. [facility] Mounjaro Mounjaro No Mounjaro [facility] [...] Systolic blood pressure 2021-03-20 15:56:00 144 mm[Hg] [place] [facility] Diastolic blood pressure 2021-03-20 15:56:00 83 mm[Hg] [facility] Heart rate 2021-03-20 15:35:00 83 /min [facility] Body temperature 2021-03-20 15:35:[address] [facility] Respiratory rate 2021-03-20 15:35:00 18 /min [facility] Body height 2021-03-20 15:35:00 157.5 cm [facility] Body weight 2021-03-20 15:35:00 84.188 kg [facility] BMI 2021-03-20 15:35:00 33.95 kg/m2 [facility] Oxygen saturation in Arterial blood by Pulse oximetry 2021-03-20 15:35:00 97 /min [facility] Systolic blood pressure 2020-10-30 16:34:00 136 mm[Hg] [facility] Diastolic blood pressure 2020-10-30 16:34:00 86 mm[Hg] [facility] Heart rate 2020-10-30 16:29:00 103 /min [facility] Body temperature 2020-10-30 16:29:[address] [facility] Respiratory rate 2020-10-30 16:29:00 18 /min [facility] Body height 2020-10-30 16:29:00 157.5 cm [facility] Body weight 2020-10-30 16:29:00 81.647 kg [facility] BMI 2020-10-30 16:29:00 32.92 kg/m2 [facility] Oxygen saturation in Arterial blood by Pulse oximetry 2020-10-30 16:29:00 95 /min [facility] Procedures Procedure Date / Time Performed Performing Clinician Source MAMMO, screening, digital, bilateral 2023-08-26 00:00:00 [facility] CONSENT/REFUSAL FOR DIAGNOSIS AND TREATMENT 2020-11-02 05:01:00 Doctor Unassigned, [place] [facility] Tubal Ligation [facility] Procedure on Neck [facility] Procedure on Kidney [facility] Cholecystectomy [facility] Section [facility] Encounters Start Date/Time End Date/Time Encounter Type Admission Type Attending Clinicians Care Facility Care Department Encounter ID Source 2016-11-13 00:00:00 2024-05-13 03:40:23 Orders Only Doctor Unassigned, [place] Doctor Unassigned, [place] [facility] [id number] [facility] 2023-08-26 00:00:00 2023-08-26 00:00:00 MICHELE Deluna: Nikki Kim, [address], [place] [address] , Ph. [facility] - GC_GCBZW_Tasha Mcleod* [id number] [facility] 2023-01-27 00:00:00 2023-01-27 00:00:00 Outpatient GC_GCBZW_Ka garrett_Julio [facility] [id number] [facility] 2022-10-30 00:00:00 2022-10-30 00:00:00 Outpatient R SUKI [facility] [id number] [facility] 2022-10-02 00:00:00 2022-10-02 00:00:00 Outpatient R SUKI [facility] [id number] [facility] 2021-03-20 09:00:00 2021-03-20 10:13:44 Outpatient R MILEY [facility] [id number] [facility] 2021-03-20 09:00:00 2021-03-20 09:20:00 Urgent Care Miley Barron, [facility] CANDIS SAUCEDA[facility] [id number] [facility] 2020-11-02 10:30:00 2020-11-02 10:30:00 Outpatient R [facility] [id number] [facility] 2020-11-02 00:00:00 2020-11-02 00:00:00 Orders Only Doctor Unassigned, [place] [id number] [id number] [id number] [id number] [facility] 2020-11-01 00:00:00 2020-11-01 00:00:00 Patient Secure Msg Doctor Unassigned, [place] [facility] 1.114 [id number] [id number] [id number] [facility] 2020-10-30 11:17:17 2020-10-30 11:37:17 [facility] 1. [id number] [id number] [facility] 2020-10-30 11:20:00 2020-10-30 11:20:00 Outpatient R LON VASQUEZ [facility] [id number] [facility] 2020-10-30 00:00:00 2020-10-30 00:00:00 Telephone Beatrice [facility] 1. [id number] [facility] 2020-03-18 17:34:34 2020-03-18 17:54:34 Laboratory Only Lab, Adc Fam Pob I Beatrice [facility] .114 [id number] [facility] 2020-03-18 17:40:00 2020-03-18 17:40:00 Outpatient R BEATRICE [facility] [id number] [facility] 2020-03-18 00:00:00 2020-03-18 00:00:00 Letter (Out) Doctor Unassigned, [place] [facility] 1.114 [id number] [id number] [facility]
[2024-05-31 10:47] LABS: Absolute Basophils 0.1 K/uL (0-0.5); Absolute Eosinophils 0.2 K/uL (0-0.5); Absolute Lymphocytes (CBC) 2.1 K/uL (0.7-4.9); Absolute Monocytes 0.4 K/uL (0.1-1.3); Absolute Neutrophil 3.9 K/uL (1.8-8.0); Eosinophils % 3.6 % (0-4.4); Hematocrit 41.5 % (36.0-45.0); Hemoglobin 14.2 g/dL (12.0-15.0); Lymphocytes % 31.6 % (15.3-44.8); MCH 31.5 pg (27.0-35.0); MCHC 34.2 g/dL (32.0-36.0); MCV 92.2 fL (80-100); MPV 8.8 fL (7.6-11.3); Monocytes % 6.5 % (3.3-12.3); Neutrophils % 57.3 % (41.7-73.7); Nucleated Red Blood Cells % 0.1 % (0-0); Platelets 278 thou/uL (152-406); RBC Red Blood Cell Count 4.49 M/uL (3.86-4.86); Red Cell Distribution Width 13.3 % (12.1-15.2)
[2024-05-31 11:06] LABS: ALT/SGPT 55 U/L (13-56); AST/SGOT 24 U/L (15-37); Albumin 3.8 g/dL (3.4-5.0); Albumin/Globulin Ratio 1.1 (1.1-1.8); Alkaline Phosphatase 71 U/L (45-117); BUN Blood Urea Nitrogen 12 mg/dL (7-18); Bicarbonate 27 mEq/L (21-32); Bilirubin Total 0.4 mg/dL (0.2-1.0); Globulin 3.4 g/dL (2.3-3.5); Glomerular Filtration Rate 95 ml/min (=/>90); Glucose Level 102 mg/dL (74-106); Protein, Total 7.2 g/dL (6.4-8.2); Sodium Level 140 mEq/L (136-145); Troponin High Sensitivity 3.1 pg/mL (<58.9)
[2024-05-31 11:11] LABS: Bilirubin Direct < 0.2 mg/dL (0-0.2); Bilirubin Indirect, Calculated 0.2 mg/dL (0.2-0.8)
--- NOTE | 2024-05-31 11:29 | RAD REPORT ---
EXAMINATION: ONE VIEW CHEST XR CLINICAL INDICATION: Female, 48 years old.,CHEST PAIN TECHNIQUE: Frontal chest projection is submitted. Examination is limited by patient positioning and t echnique. COMPARISON: 03/19/2024 FINDINGS: The lungs are well inflated and clear. No pneumothorax or sizable effusion. The heart is normal in s ize. Mediastinal contours are unremarkable. Anterior cervical plating hardware again seen. IMPRESSION: No acute intrathoracic abnormalities.
--- NOTE | 2024-05-31 11:52 | RAD REPORT ---
EXAM: CT Head Brain Wo Cont HISTORY: HEADACHE COMPARISON: 06/28/2010 TECHNIQUE: Multiple contiguous axial images were obtained for a CT of the brain without contrast. Sag ittal and coronal reformats were performed. One or more of the following dose reduction techniques were used: Automated exposure control, adjus tment of the mA and kV according to patient size, and iterative reconstruction. Unless otherwise specified, incidental findings do not require dedicated imaging follow-up. FINDINGS: No evidence of hydrocephalus, intracranial hemorrhage, or extra-axial fluid collection. The brain is normal in morphology. The calvarium is intact. The visualized paranasal sinuses show mild polypoidal mucosal thickening par ticularly along the maxillary sinuses. Mastoid air cells are essentially clear. IMPRESSION: No evidence of acute intracranial abnormality.
[2024-05-31] MEDS ORDERED: DIPHENHYDRAMINE 50 MG/ML VIAL ONE (12:18)
[2024-05-31] MEDS ORDERED: NA CHLORIDE 0.9% 1,000 ML ONE (12:18)
[2024-05-31] MEDS ORDERED: METOCLOPRAMIDE 10 MG/2mL INJ ONE (12:18)
[2024-05-31] MEDS ORDERED: MAGNESIUM SULFATE 1 gm IVPB 1 GM/100 ML BAG IV ONE (12:19)
--- NOTE | 2024-05-31 13:19 | EDPHYS ---
Physician Documentation [facility] Name: Eunice Griffin Age: 48 yrs Sex: Female : 1975 Arrival Date: 05/31/2024 Time: 09:36 Bed 10 Private MD: ED Physician Jaycob White HPI: 05/31 11:15 This 48 yrs old Female presents to ER via Wheelchair with complaints of Chest rt Tightness, Dizziness, Headache. 11:15 Patient presents to the ED with a frontal headache with associated chest tightness, rt bilateral arm tingling, dizziness since about 3 AM. Has not felt similar symptoms previously. Denies other symptoms, other acute complaints, symptoms are moderate in severity, no other aggravating or alleviating factors.. Historical: - Allergies: 09:49 Latex; ll1 09:49 Macrodantin; ll1 - PMHx: 09:49 diabetes mellitus; Hypothyroidism; Hypertensive disorder; ll1 - PSHx: 09:49 section; neck surgery; Ligation of fallopian tube; uterine ablation; ll1 Cholecystectomy; - Immunization history:: Adult Immunizations up to date. - Social history:: Smoking status: Reported history of juuling and/or vaping. Patient/guardian denies using tobacco. - Family history:: not pertinent. ROS: 11:15 Constitutional: Negative for fever, chills, and weight loss, Respiratory: Negative for rt shortness of breath, cough, wheezing, and pleuritic chest pain, Abdomen/GI: Negative for abdominal pain, nausea, vomiting, diarrhea, and constipation, MS/Extremity: Negative for injury and deformity, Skin: Negative for injury, rash, and discoloration, 11:15 Cardiovascular: Positive for chest pain, Negative for edema, 11:15 Neuro: Positive for dizziness, headache, Exam: 11:15 Constitutional: This is a well developed, well nourished patient who is awake, alert, rt and in no acute distress. Chest/axilla: Normal chest wall appearance and motion. Nontender with no deformity. No lesions are appreciated. Cardiovascular: Regular rate and rhythm with a normal S1 and S2. No gallops, murmurs, or rubs. Normal PMI, no JVD. No pulse deficits. Respiratory: Lungs have equal breath sounds bilaterally, clear to auscultation and percussion. No rales, rhonchi or wheezes noted. No increased work of breathing, no retractions or nasal flaring. Abdomen/GI: Soft, non-tender, with normal bowel sounds. No distension or tympany. No guarding or rebound. No evidence of tenderness throughout. Skin: Warm, dry with normal turgor. Normal color with no rashes, no lesions, and no evidence of cellulitis. MS/ Extremity: Pulses equal, no cyanosis. Neurovascular intact. Full, normal range of motion. Neuro: Awake and alert, GCS 15, oriented to person, place, time, and situation. Cranial nerves II-XII grossly intact. Motor strength 5/5 in all extremities. Sensory grossly intact. Cerebellar exam normal. Normal gait. 11:15 ECG was reviewed by the Attending Physician. Vital Signs: 09:49 BP 152 / 78; Pulse 74; Resp 16; Temp 97.1; Pulse Ox 96% on R/A; Weight 65.77 kg; Height ll1 5 ft. 2 in. ; Pain 10/10; 09:49 Body Mass Index 26.52 (65.77 kg, 157.48 cm) ll1 09:49 Pain Scale: Adult ll1 MDM: 09:48 Medical Screening Exam initiated rt 16:20 Differential diagnosis: Nonspecific chest pain, intracranial hemorrhage, viral rt syndrome, migraine. HEART Score: History: Slightly Suspicious (0), ECG: Normal (0), Age: > 45 and < 65 years (1), Risk Factors: 1 or 2 risk factors (1), Troponin: < or = 1 x Normal Limit (0), Total Score = 2. Data reviewed: vital signs, nurses notes, lab test result(s), EKG, radiologic studies. Consideration of Admission/Observation Escalation of care including admission/observation considered. Given chronicity of symptoms, 1 set of enzymes sufficient to rule out acute coronary syndrome, symptoms significantly improving with treatment in the ED, benign workup, does not require admission at this time.. I considered the following discharge prescriptions or medication management in the emergency department Medications were administered in the Emergency Department. See MAR. Independent interpretation of the following test(s) in the Emergency Department CT Scan: My interpretation is No intracranial hemorrhage seen on interpretation of CT scan images. Test considered but Not performed: CT: Low suspicion for PE, PE RC negative, CT angiogram not indicated. Care significantly affected by the following chronic conditions: Diabetes, Hypertension. Counseling: I had a detailed discussion with the patient and/or guardian regarding the historical points, exam findings, and any diagnostic results supporting the discharge/admit diagnosis, lab results, radiology results, the need for outpatient follow up, to return to the emergency department if symptoms worsen or persist or if there are any questions or concerns that arise at home. Response to treatment: the patient's symptoms have markedly improved after treatment. 05/31 09:57 Order name: Basic Metabolic Panel; Complete Time: 11:18 rt 05/31 09:57 Order name: CBC with Diff; Complete Time: 11:18 rt 05/31 09:57 Order name: LFT's; Complete Time: 11:18 rt 05/31 09:57 Order name: Troponin HS; Complete Time: 11:18 rt 05/31 09:57 Order name: XRAY Chest (1 view); Complete Time: 12:03 rt 05/31 09:57 Order name: CT Head Brain wo Cont; Complete Time: 12:03 rt 05/31 09:57 Order name: Cardiac monitoring; Complete Time: 12:15 rt 05/31 09:57 Order name: EKG - Nurse/Tech; Complete Time: 10:38 rt 05/31 09:57 Order name: IV Saline Lock; Complete Time: 10:38 rt 05/31 09:57 Order name: Labs collected and sent; Complete Time: 10:38 rt 05/31 09:57 Order name: O2 Per Protocol; Complete Time: 12:15 rt 05/31 09:57 Order name: O2 Sat Monitoring; Complete Time: 12:15 rt EC:15 Rate is 62 beats/min. Rhythm is regular, Normal Sinus Rhythm with No ectopy. QRS [place] rt is Normal. IA interval is normal. QRS interval is normal. QT interval is normal. No Q waves. T waves are Normal. No ST changes noted. Interpreted by me. Administered Medications: 12:26 Drug: diphenhydrAMINE IVP 25 mg IVP once Route: IVP; Site: right antecubital; jb4 12:26 Drug: NS 0.9% IV 1000 ml IV at 1 bolus Per protocol; to be given as a bolus over 60 jb4 minutes Route: IV; Rate: 1 bolus; Site: right antecubital; 12:26 Drug: Magnesium Sulfate IVPB 1 grams IVPB once over 1 hrs Route: IVPB; Infused Over: 1 jb4 hrs; Site: right antecubital; 12:27 Drug: metoCLOPramide IVP 10 mg IVP once; over 1 to 2 minutes Route: IVP; Site: right jb4 antecubital; Disposition Summary: 05/31/24 13:18 Discharge Ordered Notes: Location: Home rt Problem: new rt Symptoms: have improved rt Condition: Stable rt Diagnosis - Chest pain, unspecified rt - Headache rt Followup: rt - With: Private Physician - When: 2 - 3 days - Reason: Discharge Instructions: - Discharge Summary Sheet rt - Nonspecific Chest Pain, Adult rt - General Headache Without Cause rt Forms: - Medication Reconciliation Form rt - Antibiotic Education rt - Prescription Opioid Use rt - Patient Portal Instructions rt - Leadership Thank You Letter rt Signatures: Dispatcher [employer] Kuldip Hunter RN RN jb4 José Kim RN RN ll1 Jaycob White MD MD rt Corrections: (The following items were deleted from the chart) 09:58 09:58 Head Brain Wo Cont+CT.RAD.BRZ ordered. ED EDMS
--- NOTE | 2024-05-31 13:19 | ER ---
Nurse's Notes [facility] Name: Eunice Griffin Age: 48 yrs Sex: Female : 1975 Arrival Date: 05/31/2024 Time: 09:36 Bed 10 Private MD: Diagnosis: Chest pain, unspecified;Headache Presentation: 05/31 09:49 Chief complaint: Patient states: [place], weak, dizzy, unbalanced, face and both arms feel ll1 tingly since 3 AM. Coronavirus screen: Client denies travel out of the [place] in the last 14 days. At this time, the client does not indicate any symptoms associated with coronavirus-19. Ebola Screen: Patient denies travel to an Ebola-affected area in the 21 days before illness onset. Initial Sepsis Screen: Does the patient meet any 2 criteria? No. Patient's initial sepsis screen is negative. Does the patient have a suspected source of infection? No. Patient's initial sepsis screen is negative. Risk Assessment: Do you want to hurt yourself or someone else? Patient reports no desire to harm self or others. Onset of symptoms was May 31, 2024. 09:49 Method Of Arrival: Wheelchair ll1 09:49 Acuity: BEBO 3 ll1 Triage Assessment: 09:50 General: Appears uncomfortable, Behavior is calm, cooperative, appropriate for age. ll1 Pain: Complains of pain in chest. Neuro: Reports dizziness, headache numbness in face, right arm and left arm weakness. Cardiovascular: Reports chest pain. Historical: - Allergies: 09:49 Latex; ll1 09:49 Macrodantin; ll1 - PMHx: 09:49 diabetes mellitus; Hypothyroidism; Hypertensive disorder; ll1 - PSHx: 09:49 section; neck surgery; Ligation of fallopian tube; uterine ablation; ll1 Cholecystectomy; - Immunization history:: Adult Immunizations up to date. - Social history:: Smoking status: Reported history of juuling and/or vaping. Patient/guardian denies using tobacco. - Family history:: not pertinent. Screenin:38 [facility] ED Fall Risk Assessment (Adult) History of falling in the last 3 months, jb4 including since admission No falls in past 3 months (0 pts) Confusion or Disorientation No (0 pts) Intoxicated or Sedated No (0 pts) Impaired Gait No (0 pts) Mobility Assist Device Used No (0 pt) Altered Elimination No (0 pt) Score/Fall Risk Level 0 - 2 = Low Risk Oriented to surroundings, Maintained a safe environment. Abuse screen: Denies threats or abuse. Nutritional screening: No deficits noted. Tuberculosis screening: No symptoms or risk factors identified. Assessment: 12:15 Reassessment: Patient appears in no apparent distress at this time. Patient and/or jb4 family updated on plan of care and expected duration. Pain level reassessed. Patient is alert, oriented x 3, equal unlabored respirations, skin warm/dry/pink. 13:38 Reassessment: Patient appears in no apparent distress at this time. Patient and/or jb4 family updated on plan of care and expected duration. Pain level reassessed. Patient is alert, oriented x 3, equal unlabored respirations, skin warm/dry/pink. Vital Signs: 09:49 BP 152 / 78; Pulse 74; Resp 16; Temp 97.1; Pulse Ox 96% on R/A; Weight 65.77 kg; Height ll1 5 ft. 2 in. ; Pain 10/10; 09:49 Body Mass Index 26.52 (65.77 kg, 157.48 cm) ll1 09:49 Pain Scale: Adult ll1 ED Course: 09:39 Patient arrived in ED. al6 09:45 Jaycob White MD is Attending Physician. rt 09:50 Arm band placed on. ll1 09:51 Triage completed. ll1 10:10 CT Head Brain wo Cont In Process Unspecified. EDMS 10:31 XRAY Chest (1 view) In Process Unspecified. EDMS 10:38 Basic Metabolic Panel Sent. bc6 10:38 CBC with Diff Sent. bc6 10:38 LFT's Sent. bc6 10:38 Troponin HS Sent. bc6 10:38 Initial lab(s) drawn, by al, sent to lab. Inserted saline lock: 20 gauge in right bc6 forearm, using aseptic technique. Blood collected. Flushed with 10 mL NS. 12:26 Kuldip Burns, RN is Primary Nurse. jb4 13:38 Patient has correct armband on for positive identification. Bed in low position. Call jb4 light in reach. Side rails up X 1. Provided Education on: discharge instructions.. 13:39 No provider procedures requiring assistance completed. IV discontinued, intact, jb4 bleeding controlled, No redness/swelling at site. Pressure dressing applied. Oxygen administration via nasal cannula. Administered Medications: 12:26 Drug: diphenhydrAMINE IVP 25 mg IVP once Route: IVP; Site: right antecubital; jb4 12:26 Drug: NS 0.9% IV 1000 ml IV at 1 bolus Per protocol; to be given as a bolus over 60 jb4 minutes Route: IV; Rate: 1 bolus; Site: right antecubital; 12:26 Drug: Magnesium Sulfate IVPB 1 grams IVPB once over 1 hrs Route: IVPB; Infused Over: 1 jb4 hrs; Site: right antecubital; 12:27 Drug: metoCLOPramide IVP 10 mg IVP once; over 1 to 2 minutes Route: IVP; Site: right jb4 antecubital; Medication: 13:38 VIS not applicable for this client. jb4 Outcome: 13:18 Discharge ordered by . rt 13:39 Discharged to home ambulatory, jb4 13:39 Condition: stable 13:39 Discharge instructions given to patient, Instructed on discharge instructions, follow up and referral plans. Demonstrated understanding of instructions, follow-up care, 13:39 Patient left the ED. jb4 Signatures: Dispatcher [employer] EDMS Kuldip Burns RN RN jb4 José Kim RN RN ll1 Jaycob White MD MD rt Sania Mcgill 6 Niki Juarez6
[2024-05-31 13:43] VITALS: BP 152/78; TEMP 97.1; O2SAT 96
== END 2024-05-31 13:39 | disposition home or self-care (01) ==
LOC: ER 09:36
DX: R07.9 Chest pain, unspecified (principal); R51.9 Headache, unspecified; I10 Essential (primary) hypertension; E11.9 Type 2 diabetes mellitus without complications
CPT/HCPCS: 85025; 80048; 36415; 80076; 84484; 70450; 71045; J3475; J2765; J1200; J7030; 93005

== ENCOUNTER 2025-01-21 14:07 | Emergency (ER) | payer BC ==
[2025-01-21] MEDS ORDERED: KETOROLAC 30 MG/ML INJ ONE (14:50)
[2025-01-21] MEDS ORDERED: FAMOTIDINE 20 MG/2 ML VIAL IV ONE (14:50)
[2025-01-21] MEDS ORDERED: ONDANSETRON 4 MG/2 ML VIAL ONE (14:50)
[2025-01-21] MEDS ORDERED: NA CHLORIDE 0.9% 1,000 ML ONE (14:51)
[2025-01-21 15:20] LABS: Absolute Lymphocytes (CBC) 2.2 K/uL (0.7-4.9); Hematocrit 37.7 % (36.0-45.0); Hemoglobin 12.7 g/dL (12.0-15.0); MCH 30.8 pg (27.0-35.0); MCHC 33.7 g/dL (32.0-36.0); MCV 91.4 fL (80-100); MPV 8.2 fL (7.6-11.3); Nucleated RBC Absolute Count 0.0 (0-0); Nucleated Red Blood Cells % 0.0 % (0-0); RBC Red Blood Cell Count 4.13 M/uL (3.86-4.86); White Blood Count 7.10 thou/uL (4.3-10.9)
[2025-01-21 15:46] LABS: ALT/SGPT 35.0 U/L (13-56); AST/SGOT 20.0 U/L (15-37); Albumin 3.6 g/dL (3.4-5.0); Albumin/Globulin Ratio 0.9 (1.1-1.8); Alkaline Phosphatase 63.0 U/L (45-117); Anion Gap 7.8 mEq/L (5.0-15.0); BUN Blood Urea Nitrogen 9.0 mg/dL (7-18); Globulin 3.9 g/dL (2.3-3.5); Glucose Level 92.0 mg/dL (74-106); Lipase 25.0 U/L (13-75); Potassium 3.8 mEq/L (3.5-5.1)
[2025-01-21] MEDS ORDERED: MORPHINE 2 MG/ML SYR ONE (16:13)
--- NOTE | 2025-01-21 16:56 | RAD REPORT ---
EXAMINATION: Abdomen Pelvis W Contrast CLINICAL INDICATION: Female, 49 years old.ABD PAIN TECHNIQUE: CT abdomen and pelvis was performed, after the administration of IV contrast[facility]. Axial, sagittal and coronal reconstructions were obtained. One or more of the following dose reduction techniques were used: Automated exposure control, adjustment of the mA and/o r kV according to patient size, and/or iterative reconstruction. Unless otherwise specified, incidental findings do not require dedicated imaging follow-up. [id number]. COMPARISON: 08/28/2024 FINDINGS: LOWER CHEST: No acute process identified. No significant pericardial effusion. UPPER GI: No significant abnormality. LIVER: Hepatic steatosis, but otherwise unremarkable. GALLBLADDER/BILE DUCTS: Cholecystectomy. Mild extra-hepatic biliary ductal dilatation is likely relat ed to the post-cholecystectomy state. Consider correlating with LFT's.? PANCREAS: No mass, ductal dilation, or sherice-pancreatic fluid. SPLEEN: Unremarkable. ADRENALS: No adrenal masses. KIDNEYS AND URETERS: No hydronephrosis. No suspicious renal mass. Nonobstructing renal calculi. No ur eteral calculi. ABDOMINAL AORTA AND OTHER VESSELS: Normal caliber aorta and IVC. PERITONEUM: No abnormal free fluid. No free air. LYMPH NODES: No pathologic lymphadenopathy. ABDOMINAL WALL: Unremarkable SMALL BOWEL/COLON: Small bowel has normal course and caliber. No colonic wall thickening or pericolon ic inflammatory changes. Normal appendix. URINARY BLADDER: Underdistended but grossly unremarkable. REPRODUCTIVE ORGANS: No pathologic process. MUSCULOSKELETAL: No acute or suspicious osseous abnormality. ADDITIONAL FINDINGS: None. IMPRESSION: No acute findings within the abdomen or pelvis. No appendicitis.
--- NOTE | 2025-01-21 17:19 | EDPHYS ---
Physician Documentation [facility] Name: Eunice Griffin Age: 49 yrs Sex: Female : 1975 Arrival Date: 01/21/2025 Time: 14:07 Bed 17 Private MD: ED Physician Javier Samano HPI: 01/21 14:25 This 49 yrs old Female presents to ER via Wheelchair with complaints of Abdominal Pain, kb Nausea. 14:25 Pt is a 49 year old female who presents for right sided abd pain with nausea that kb started just [employer]. Denies vomiting, diarrhea. States she has never had this type of pain before. Reports cholecystectomy and IBS history. . Historical: - Allergies: 14:20 Latex; ll1 14:20 Macrodantin; ll1 - PMHx: 14:20 Hypertensive disorder; Hypothyroidism; diabetes mellitus; ll1 - PSHx: 14:20 Cholecystectomy; Ligation of fallopian tube; section; neck surgery; uterine ll1 ablation; - Immunization history:: Adult Immunizations up to date. - Infectious Disease History:: Denies. - Social history:: Smoking status: Reported history of juuling and/or vaping. ROS: 14:24 Constitutional: As per HPI kb Exam: 14:24 Constitutional: This is a well developed, well nourished patient who is awake, alert, kb and in no acute distress. Head/Face: Normocephalic, atraumatic. ENT: Moist Mucous membranes Cardiovascular: Regular rate Respiratory: Respirations even and unlabored. No increased work of breathing. Talking in full sentences Skin: Warm, dry with normal turgor. Normal color. MS/ Extremity: Pulses equal, no cyanosis. Neurovascular intact. Full, normal range of motion. Neuro: Awake and alert, GCS 15, oriented to person, place, time, and situation. 14:24 Abdomen/GI: Inspection: abdomen appears normal, Bowel sounds: normal, Palpation: soft, moderate abdominal tenderness, in the right upper quadrant, Vital Signs: 14:20 BP 133 / 77; Pulse 86; Resp 17; Temp 97; Pulse Ox 99% ; Weight 72.57 kg; Height 5 ft. 2 ll1 in. ; Pain 10/10; 15:45 BP 133 / 85; Pulse 78; Resp 18; Pulse Ox 97% on R/A; cc6 17:02 BP 146 / 84; Pulse 76; Resp 17; Pulse Ox 97% on R/A; cc6 14:20 Body Mass Index 29.26 (72.57 kg, 157.48 cm) ll1 14:20 Pain Scale: Adult ll1 MDM: 14:10 Medical Screening Exam initiated kb 14:25 Data reviewed: vital signs, nurses notes. kb 17:13 Differential diagnosis: appendicitis, bowel obstruction, non-specific abd pain, kb pancreatitis. Counseling: I had a detailed discussion with the patient and/or guardian regarding the historical points, exam findings, and any diagnostic results supporting the discharge/admit diagnosis, lab results, radiology results, the need for outpatient follow up, a forgesmith, to return to the emergency department if symptoms worsen or persist or if there are any questions or concerns that arise at home. 01/21 14:22 Order name: CBC with Diff; Complete Time: 15:29 kb 01/21 14:22 Order name: CMP; Complete Time: 15:52 kb 01/21 14:22 Order name: Lipase; Complete Time: 15:52 kb 01/21 14:22 Order name: Test, Urine; Complete Time: 15:46 kb 01/21 14:22 Order name: CT Abd/Pelvis - IV Contrast Only; Complete Time: 16:57 kb 01/21 14:22 Order name: IV Saline Lock; Complete Time: 15:12 kb 01/21 14:22 Order name: Labs collected and sent; Complete Time: 15:12 kb Administered Medications: 15:12 Drug: Famotidine IVP 20 mg IVP once; dilute with 10 mL 0.9% NaCl; give over 2 minutes cc6 Route: IVP; Site: right antecubital; 17:51 Follow up: Response: No adverse reaction cc6 15:12 Drug: TORadol - Ketorolac IVP 15 mg IVP once Route: IVP; Site: right antecubital; cc6 17:51 Follow up: Response: No adverse reaction; Pain is decreased cc6 15:12 Drug: Ondansetron IVP 4 mg IVP once; over 2 minutes Route: IVP; Site: right antecubital;cc6 17:51 Follow up: Response: No adverse reaction; Nausea is decreased cc6 15:12 Drug: NS 0.9% IV 1000 ml IV at 1 bolus Per protocol; to be given as a bolus over 60 cc6 minutes Route: IV; Rate: 1 bolus; Site: right antecubital; 17:51 Follow up: Response: No adverse reaction; IV Status: Completed infusion cc6 16:25 Drug: morphine IVP or IV 4 mg IVP once over 4 mins Route: IVP; Infused Over: 4 mins; cc6 Site: right antecubital; 17:50 Follow up: Response: No adverse reaction; Pain is decreased; RASS: Alert and Calm (0) cc6 Disposition: 18:23 Co-signature as Attending Physician, Javier Samano MD I reviewed the patient's care rn provided by the Advanced Practice Provider and agree with the diagnosis and treatment plan. Disposition Summary: 01/21/25 17:18 Discharge Ordered Notes: Location: Home kb Condition: Stable kb Diagnosis - Abdominal pain, Generalized kb Followup: kb - With: Emergency Department - When: As needed - Reason: Worsening of condition Followup: kb - With: Private Physician - When: 2 - 3 days - Reason: Recheck today's complaints, Continuance of care, Re-evaluation by your physician Discharge Instructions: - Discharge Summary Sheet kb - Abdominal Pain, Adult, [id number] kb Forms: - Medication Reconciliation Form kb - Antibiotic Education kb - Prescription Opioid Use kb - Patient Portal Instructions kb - Leadership Thank You Letter kb Prescriptions: - Zofran 4 mg Oral tablet - take 1 tablet ORAL route every 6 hours As needed; 12 tablet; Refills: 0, kb Product Selection Permitted - dicyclomine 20 mg Oral tablet - take 1 tablet ORAL route 4 times per day As needed; 20 tablet; Refills: 0, kb Product Selection Permitted Signatures: Dispatcher [employer] EDJulienne Sinha, COMMUNICATION CONSULTANT-C COMMUNICATION CONSULTANT-Ckb Javier Samano MD MD rn Lewis, Lynsay, RN RN ll1 Camille Fernandez RN RN cc6 Corrections: (The following items were deleted from the chart) 14:23 14:23 CBC+H.LAB.BRZ ordered. EDMS EDMS 14:23 14:23 COMPREHENSIVE METABOLIC PANEL+C.LAB.BRZ ordered. EDMS EDMS 14:23 14:23 LIPASE+C.LAB.BRZ ordered. EDMS EDMS 14:23 14:23 Test, Urine+UC.LAB.BRZ ordered. EDMS EDMS 14:23 14:23 Abdomen Pelvis W Con+CT.RAD.BRZ ordered. EDMS EDMS 17:50 17:50 PMHx: Diabetes - NIDDM; "borderline"; cc6 cc6 17:50 17:50 PMHx: Diabetes- NIDDM (Hypothyroidism); cc6 cc6
--- NOTE | 2025-01-21 17:19 | ER ---
Nurse's Notes [facility] Name: Eunice Griffin Age: 49 yrs Sex: Female : 1975 Arrival Date: 01/21/2025 Time: 14:07 Bed 17 Private MD: Diagnosis: Abdominal pain, Generalized Presentation: 01/21 14:20 Chief complaint: Patient states: Abdominal pain, nausea started today while at work. ll1 Coronavirus screen: Client denies travel out of the [place] in the last 14 days. fatigue, nausea, Client presents with at least one sign or symptom that may indicate coronavirus-19. Standard/surgical mask placed on the client. Ebola Screen: Patient denies travel to an Ebola-affected area in the 21 days before illness onset. Initial Sepsis Screen: Does the patient meet any 2 criteria? No. Patient's initial sepsis screen is negative. Does the patient have a suspected source of infection? No. Patient's initial sepsis screen is negative. Risk Assessment: Do you want to hurt yourself or someone else? Patient reports no desire to harm self or others. Onset of symptoms was January 21, 2025. 14:20 Method Of Arrival: Wheelchair ll1 14:20 Acuity: BEBO 3 ll1 Historical: - Allergies: 14:20 Latex; ll1 14:20 Macrodantin; ll1 - PMHx: 14:20 Hypertensive disorder; Hypothyroidism; diabetes mellitus; ll1 - PSHx: 14:20 Cholecystectomy; Ligation of fallopian tube; section; neck surgery; uterine ll1 ablation; - Immunization history:: Adult Immunizations up to date. - Infectious Disease History:: Denies. - Social history:: Smoking status: Reported history of juuling and/or vaping. Screenin:50 [facility] ED Fall Risk Assessment (Adult) History of falling in the last 3 months, cc6 including since admission No falls in past 3 months (0 pts) Confusion or Disorientation No (0 pts) Intoxicated or Sedated No (0 pts) Impaired Gait No (0 pts) Mobility Assist Device Used No (0 pt) Altered Elimination No (0 pt) Score/Fall Risk Level 0 - 2 = Low Risk Oriented to surroundings, Maintained a safe environment, Hourly rounding (assess needs \\T\\ fall precautionary measures) done. Abuse screen: Denies threats or abuse. Denies injuries from another. Nutritional screening: No deficits noted. Tuberculosis screening: No symptoms or risk factors identified. Assessment: 14:50 General: Appears in no apparent distress. uncomfortable, Behavior is calm, cooperative, cc6 appropriate for age. Pain: Complains of pain in right upper quadrant and right lower quadrant Pain radiates to left upper quadrant Pain currently is 10 out of 10 on a pain scale. Quality of pain is described as sharp, Pain began 1300. Neuro: Level of Consciousness is awake, alert, obeys commands, Oriented to person, place, time, situation, Appropriate for age. Cardiovascular: Capillary refill < 3 seconds Patient's skin is warm and dry. Respiratory: Airway is patent Respiratory effort is even, unlabored, Respiratory pattern is regular, symmetrical. GI: Abdomen is round non-distended, Bowel sounds present X 4 quads. Abd is non tender in left upper quadrant and left lower quadrant Abdomen is tender to palpation in right upper quadrant and right lower quadrant. : No signs and/or symptoms were reported regarding the genitourinary system. EENT: No signs and/or symptoms were reported regarding the EENT system. Derm: No signs and/or symptoms reported regarding the dermatologic system. Musculoskeletal: No signs and/or symptoms reported regarding the musculoskeletal system. 15:45 Reassessment: Patient and/or family updated on plan of care and expected duration. Pain cc6 level reassessed. Patient is alert, oriented x 3, equal unlabored respirations, skin warm/dry/pink. 16:56 Reassessment: Patient and/or family updated on plan of care and expected duration. Pain cc6 level reassessed. Patient is alert, oriented x 3, equal unlabored respirations, skin warm/dry/pink. Vital Signs: 14:20 BP 133 / 77; Pulse 86; Resp 17; Temp 97; Pulse Ox 99% ; Weight 72.57 kg; Height 5 ft. 2 ll1 in. ; Pain 10/10; 15:45 BP 133 / 85; Pulse 78; Resp 18; Pulse Ox 97% on R/A; cc6 17:02 BP 146 / 84; Pulse 76; Resp 17; Pulse Ox 97% on R/A; cc6 14:20 Body Mass Index 29.26 (72.57 kg, 157.48 cm) ll1 14:20 Pain Scale: Adult ll1 ED Course: 14:09 Patient arrived in ED. al6 14:10 Jul[facility]cleod F[facility]-C [facility]. kb 14:10 Javier Samano MD is Attending Physician. kb 14:20 Arm band placed on. ll1 14:21 Triage completed. ll1 14:25 Warm blanket given. Verbal reassurance given. ph 14:47 Camille Fernandez, RN is Primary Nurse. cc6 14:50 Bed in low position. Call light in reach. Side rails up X 1. Provided Education on: use cc6 of call light. 14:50 Inserted saline lock: 20 gauge in right antecubital area, using aseptic technique. cc6 Blood collected. Flushed with 10 mL NS. 15:12 CBC with Diff Sent. cc6 15:12 CMP Sent. cc6 15:12 Lipase Sent. cc6 16:43 CT Abd/Pelvis - IV Contrast Only In Process Unspecified. EDMS 17:48 No provider procedures requiring assistance completed. IV discontinued, intact, cc6 bleeding controlled, No redness/swelling at site. Pressure dressing applied. Administered Medications: 15:12 Drug: Famotidine IVP 20 mg IVP once; dilute with 10 mL 0.9% NaCl; give over 2 minutes cc6 Route: IVP; Site: right antecubital; 17:51 Follow up: Response: No adverse reaction cc6 15:12 Drug: TORadol - Ketorolac IVP 15 mg IVP once Route: IVP; Site: right antecubital; cc6 17:51 Follow up: Response: No adverse reaction; Pain is decreased cc6 15:12 Drug: Ondansetron IVP 4 mg IVP once; over 2 minutes Route: IVP; Site: right antecubital;cc6 17:51 Follow up: Response: No adverse reaction; Nausea is decreased cc6 15:12 Drug: NS 0.9% IV 1000 ml IV at 1 bolus Per protocol; to be given as a bolus over 60 cc6 minutes Route: IV; Rate: 1 bolus; Site: right antecubital; 17:51 Follow up: Response: No adverse reaction; IV Status: Completed infusion cc6 16:25 Drug: morphine IVP or IV 4 mg IVP once over 4 mins Route: IVP; Infused Over: 4 mins; cc6 Site: right antecubital; 17:50 Follow up: Response: No adverse reaction; Pain is decreased; RASS: Alert and Calm (0) cc6 Medication: 17:50 VIS not applicable for this client. cc6 Outcome: 17:18 Discharge ordered by . lidia 17:48 Discharged to home ambulatory, cc6 17:48 Condition: stable 17:48 Discharge instructions given to patient, Instructed on discharge instructions, follow up and referral plans. medication usage, Demonstrated understanding of instructions, follow-up care, medications, Prescriptions given X 2, 17:50 Patient left the ED. cc6 Signatures: Dispatcher [employer] EDMS Julienne Mcleod, PRINTING AND STAMPING SUPERVISOR-C PRINTING AND STAMPING SUPERVISOR-Flores Zhang RN RN José Kim RN RN ll1 Camille Fernandez RN RN cc6 Niki Juarez al6 Corrections: (The following items were deleted from the chart) 14:22 14:20 BP 133 / 77; Pulse 86bpm; Resp 17bpm; Pulse Ox 99%; Temp 97F; Pain 10/10, Adult; ll1 ll1 17:50 17:50 PMHx: Diabetes - NIDDM; "borderline"; cc6 cc6 17:50 17:50 PMHx: Diabetes- NIDDM (Hypothyroidism); cc6 cc6
[2025-01-21 18:46] VITALS: TEMP 97
[2025-01-21 18:48] VITALS: O2SAT 97
[2025-01-21 18:49] VITALS: BP 146/84
== END 2025-01-21 17:50 | disposition home or self-care (01) ==
LOC: ER 14:07
DX: R10.84 Generalized abdominal pain (principal); R11.0 Nausea; I10 Essential (primary) hypertension; E03.9 Hypothyroidism, unspecified; E11.9 Type 2 diabetes mellitus without complications; F17.290 Nicotine dependence, other tobacco product, uncomplicated
CPT/HCPCS: 96361; 85025; 36415; 81025; 83690; 80053; 74177; 96375; 96374; 99284; Q9967; J1885; J2270; J2405; J7030

== ENCOUNTER 2025-01-22 17:11 | Emergency (ER) | payer BC ==
[2025-01-22 17:59] LABS: Absolute Lymphocytes (CBC) 2.7 K/uL (0.7-4.9); Hematocrit 37.6 % (36.0-45.0); Hemoglobin 12.7 g/dL (12.0-15.0); MCH 30.7 pg (27.0-35.0); MCHC 33.7 g/dL (32.0-36.0); MCV 91.1 fL (80-100); MPV 7.8 fL (7.6-11.3); Nucleated RBC Absolute Count 0.0 (0-0); Nucleated Red Blood Cells % 0.0 % (0-0); RBC Red Blood Cell Count 4.13 M/uL (3.86-4.86); White Blood Count 7.00 thou/uL (4.3-10.9)
[2025-01-22 18:12] LABS: Sqamous Epithelial <5 /HPF (None Seen); Urine Crystals Unidentified Few /HPF (None Seen); Urine Culture Reflex Order NOT NEEDED; Urine Microscopic Reflex YN ORDER UMIC; Urine WBC Clump Rare /HPF (None Seen); Urine Yeast (Budding) Trace /HPF (None Seen)
[2025-01-22 18:16] LABS: ALT/SGPT 33.0 U/L (13-56); AST/SGOT 14.0 U/L (15-37); Albumin 3.6 g/dL (3.4-5.0); Albumin/Globulin Ratio 1.0 (1.1-1.8); Alkaline Phosphatase 61.0 U/L (45-117); Anion Gap 8.5 mEq/L (5.0-15.0); BUN Blood Urea Nitrogen 10.0 mg/dL (7-18); Globulin 3.5 g/dL (2.3-3.5); Glucose Level 85.0 mg/dL (74-106); Lipase 26.0 U/L (13-75); Potassium 3.5 mEq/L (3.5-5.1)
[2025-01-22] MEDS ORDERED: ONDANSETRON 4 MG/2 ML VIAL ONE (18:50)
[2025-01-22] MEDS ORDERED: NA CHLORIDE 0.9% 1,000 ML ONE (18:50)
[2025-01-22] MEDS ORDERED: MORPHINE 2 MG/ML SYR ONE (18:50)
--- NOTE | 2025-01-22 18:53 | RAD REPORT ---
EXAMINATION: Abdomen Pelvis W Contrast CLINICAL INDICATION: Female, 49 years old.ABD PAIN TECHNIQUE: CT abdomen and pelvis was performed, after the administration of IV contrast, as per [facility] protocol. Axial, sagittal and coronal reconstructions were obtained. One or more of the following dose reduction techniques were used: Automated exposure control, adjustment of the mA and/o r kV according to patient size, and/or iterative reconstruction. Unless otherwise specified, incidental findings do not require dedicated imaging follow-up. [id number]. COMPARISON: 01/21/2025 FINDINGS: LOWER CHEST: No acute process identified. No significant pericardial effusion. UPPER GI: No significant abnormality. LIVER: Hepatic steatosis, but otherwise unremarkable. GALLBLADDER/BILE DUCTS: Cholecystectomy.? PANCREAS: No mass, ductal dilation, or sherice-pancreatic fluid. SPLEEN: Unremarkable. ADRENALS: No adrenal masses. KIDNEYS AND URETERS: No hydronephrosis. 4 mm stone in the right kidney. ABDOMINAL AORTA AND OTHER VESSELS: Normal caliber aorta and IVC. PERITONEUM: No abnormal free fluid. No free air. LYMPH NODES: No pathologic lymphadenopathy. ABDOMINAL WALL: Unremarkable SMALL BOWEL/COLON: Small bowel has normal course and caliber. No colonic wall thickening or pericolon ic inflammatory changes. Normal appendix. URINARY BLADDER: Underdistended but grossly unremarkable. REPRODUCTIVE ORGANS: No pathologic process. MUSCULOSKELETAL: No acute or suspicious osseous abnormality. ADDITIONAL FINDINGS: None. IMPRESSION: No acute findings within the abdomen or pelvis. No appendicitis. Nonobstructive right nephrolithiasis .
--- NOTE | 2025-01-22 19:03 | ER ---
Nurse's Notes [facility] Name: Eunice Griffin Age: 49 yrs Sex: Female : 1975 Arrival Date: 01/22/2025 Time: 17:11 Bed 12 Private MD: Diagnosis: Abdominal pain, Generalized Presentation: 01/22 17:28 Chief complaint: Patient states: Right sided abdominal pain that is worse today with me1 nausea and chills. Pain is 10/10. Coronavirus screen: Vaccine status: Patient reports being unvaccinated. Ebola Screen: No symptoms or risks identified at this time. Initial Sepsis Screen: Does the patient meet any 2 criteria? No. Patient's initial sepsis screen is negative. Does the patient have a suspected source of infection? No. Patient's initial sepsis screen is negative. Risk Assessment: Do you want to hurt yourself or someone else? Patient reports no desire to harm self or others. Onset of symptoms was January 21, 2025. 17:28 Method Of Arrival: [facility] [place] 17:28 Acuity: BEBO 3 me1 BLOCK STACKER: 17:30 LMP N/A - control method, Not me1 Historical: - Allergies: 17:30 Latex; me1 17:30 Macrodantin; me1 - PMHx: 17:30 diabetes mellitus; Hypertensive disorder; Hypothyroidism; me1 - PSHx: 17:30 section; Cholecystectomy; Ligation of fallopian tube; neck surgery; uterine me1 ablation; - Immunization history:: Adult Immunizations up to date. - Infectious Disease History:: Denies. - Social history:: Smoking status: Reported history of juuling and/or vaping. Screenin:15 [facility] ED Fall Risk Assessment (Adult) History of falling in the last 3 months, jb4 including since admission No falls in past 3 months (0 pts) Confusion or Disorientation No (0 pts) Intoxicated or Sedated No (0 pts) Impaired Gait No (0 pts) Mobility Assist Device Used No (0 pt) Altered Elimination No (0 pt) Score/Fall Risk Level 0 - 2 = Low Risk Oriented to surroundings, Maintained a safe environment. Abuse screen: Denies threats or abuse. Nutritional screening: No deficits noted. Tuberculosis screening: No symptoms or risk factors identified. Assessment: 18:00 General: Appears in no apparent distress. uncomfortable, Behavior is calm, cooperative, jb4 appropriate for age. Pain: Complains of pain in abdomen Pain does not radiate. Pain currently is 10 out of 10 on a pain scale. Neuro: Level of Consciousness is awake, alert, obeys commands, Oriented to person, place, time, situation. Cardiovascular: Patient's skin is warm and dry. Respiratory: Airway is patent Respiratory effort is even, unlabored, Respiratory pattern is regular, symmetrical. GI: Abdomen is non-distended, obese, Reports nausea. Derm: Skin is intact, Skin is pink, warm \T\ dry. Musculoskeletal: Circulation, motion, and sensation intact. Range of motion: intact in all extremities. 19:15 Reassessment: Patient appears in no apparent distress at this time. Patient and/or jb4 family updated on plan of care and expected duration. Pain level reassessed. Patient is alert, oriented x 3, equal unlabored respirations, skin warm/dry/pink. D/c pending completion of IV fluids. 19:59 Reassessment: Patient appears in no apparent distress at this time. Patient and/or jb4 family updated on plan of care and expected duration. Pain level reassessed. Patient is alert, oriented x 3, equal unlabored respirations, skin warm/dry/pink. Vital Signs: 17:28 BP 131 / 82; Pulse 81; Resp 15; Temp 98.2; Pulse Ox 99% ; Weight 72.57 kg; Height 5 ft. me1 2 in. ; Pain 10/10; 19:19 BP 119 / 72; Pulse 84; Resp 16; Pulse Ox 95% ; jb4 17:28 Body Mass Index 29.26 (72.57 kg, 157.48 cm) nj1 17:28 Pain Scale: [facility] [place] ED Course: 17:25 Patient arrived in ED. cj3 17:26 Julienne Mcleod FNP-C [facility]. kb 17:26 Javier Samano MD is Attending Physician. kb 17:30 Triage completed. nj1 17:30 Arm band placed on Patient placed in waiting room. nj1 17:56 CBC with Diff Sent. bc6 17:56 CMP Sent. 6 17:56 Lipase Sent. 6 17:56 Initial lab(s) drawn, by nj, sent to lab. Inserted saline lock: 20 gauge in right bc6 antecubital area, using aseptic technique. Blood collected. Flushed with 10 mL NS. 18:05 Urine collected: clean catch specimen, cloudy. me1 18:29 CT Abd/Pelvis - IV Contrast Only In Process Unspecified. EDMS 19:19 Kuldip Burns, RN is Primary Nurse. jb4 20:01 Patient has correct armband on for positive identification. Bed in low position. Call jb4 light in reach. Side rails up X 1. Provided Education on: discharged instructions.. 20:01 No provider procedures requiring assistance completed. IV discontinued, intact, jb4 bleeding controlled, No redness/swelling at site. Pressure dressing applied. Administered Medications: 18:55 Drug: NS 0.9% IV 1000 ml IV at 1000 ml once; to be given as a bolus over 60 minutes jb4 Route: IV; Rate: 1000 ml; Site: right antecubital; 18:55 Drug: Ondansetron IVP 4 mg IVP once; over 2 minutes Route: IVP; Site: right antecubital;jb4 18:55 Drug: morphine IVP or IV 4 mg IVP once over 4 mins Route: IVP; Infused Over: 4 mins; jb4 Site: right antecubital; Medication: 19:15 VIS not applicable for this client. jb4 Outcome: 19:03 Discharge ordered by . kb 20:01 Discharged to home ambulatory, jb4 20:01 Condition: stable 20:01 Discharge instructions given to patient, Instructed on discharge instructions, follow up and referral plans. Demonstrated understanding of instructions, follow-up care, 20:01 Patient left the ED. jb4 Signatures: Dispatcher [employer] EDTX Julienne Mcleod, OVERHEAD CRANE OPERATOR-C OVERHEAD CRANE OPERATOR-Ckb Kuldip Burns, RN RN jb4 Sania Mcgill bc6 Jessica Pinedo RN RN me1 Caitlyn Ceja 3
--- NOTE | 2025-01-22 19:04 | EDPHYS ---
Physician Documentation [facility] Name: Eunice Griffin Age: 49 yrs Sex: Female : 1975 Arrival Date: 01/22/2025 Time: 17:11 Bed 12 Private MD: ED Physician Javier Samano HPI: 01/22 17:34 This 49 yrs old Female presents to ER via Ambulatory with complaints of Abdominal Pain, kb Nausea, Chills. 17:34 Pt is a 49 year old female who presents for right sided abd pain that started kb yesterday. Pt was seen here yesterday just after symptoms began, labs and ct completed. Pt followed up with PCP, Dr Ross, today and was told to come back for repeat labs and CT. . 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 - Infectious Disease History:: Denies. - Social history:: Smoking status: Reported history of juuling and/or vaping. ROS: 17:34 Constitutional: As per HPI kb Exam: 17:34 Constitutional: This is a well developed, well nourished patient who is awake, alert, kb and in no acute distress. Head/Face: Normocephalic, atraumatic. ENT: Moist Mucous membranes Cardiovascular: Regular rate Respiratory: Respirations even and unlabored. No increased work of breathing. Talking in full sentences Skin: Warm, dry with normal turgor. Normal color. MS/ Extremity: Pulses equal, no cyanosis. Neurovascular intact. Full, normal range of motion. Neuro: Awake and alert, GCS 15, oriented to person, place, time, and situation. 17:34 Abdomen/GI: Inspection: abdomen appears normal, Bowel sounds: normal, Palpation: soft, in all quadrants, moderate abdominal tenderness, in the right upper quadrant and right lower quadrant, Vital Signs: 17:28 BP 131 / 82; Pulse 81; Resp 15; Temp 98.2; Pulse Ox 99% ; Weight 72.57 kg; Height 5 ft. me1 2 in. ; Pain 01/05; 19:19 BP 119 / 72; Pulse 84; Resp 16; Pulse Ox 95% ; jb4 17:28 Body Mass Index 29.26 (72.57 kg, 157.48 cm) me1 17:28 Pain Scale: Adult me1 MDM: 17:26 Medical Screening Exam initiated 17:36 Data reviewed: vital signs, nurses notes. Management of patient was discussed with the kb following: Primary Care Provider: Dr Ross called and requested repeat labs and CT to recheck appendix. 19:02 Differential diagnosis: appendicitis, bowel obstruction, gastritis, non-specific abd kb pain, pancreatitis. Counseling: I had a detailed discussion with the patient and/or guardian regarding the historical points, exam findings, and any diagnostic results supporting the discharge/admit diagnosis, lab results, radiology results, the need for outpatient follow up, a family practitioner, a all round butcher, to return to the emergency department if symptoms worsen or persist or if there are any questions or concerns that arise at home. 01/22 17:30 Order name: CBC with Diff; Complete Time: 18:05 kb 01/22 17:30 Order name: CMP; Complete Time: 18:17 kb 01/22 17:30 Order name: Lipase; Complete Time: 18:17 kb 01/22 17:30 Order name: UA Rfx Clive Cult if indicated; Complete Time: 18:15 kb 01/22 17:30 Order name: CT Abd/Pelvis - IV Contrast Only; Complete Time: 18:58 kb 01/22 17:30 Order name: IV Saline Lock; Complete Time: 17:56 kb 01/22 17:30 Order name: Labs collected and sent; Complete Time: 17:56 kb Administered Medications: 18:55 Drug: NS 0.9% IV 1000 ml IV at 1000 ml once; to be given as a bolus over 60 minutes jb4 Route: IV; Rate: 1000 ml; Site: right antecubital; 18:55 Drug: Ondansetron IVP 4 mg IVP once; over 2 minutes Route: IVP; Site: right antecubital;jb4 18:55 Drug: morphine IVP or IV 4 mg IVP once over 4 mins Route: IVP; Infused Over: 4 mins; jb4 Site: right antecubital; Disposition Summary: 01/22/25 19:03 Discharge Ordered Notes: Location: Home kb Condition: Stable kb Diagnosis - Abdominal pain, Generalized kb Followup: kb - With: Emergency Department - When: As needed - Reason: Worsening of condition Followup: kb - With: Private Physician - When: 2 - 3 days - Reason: Recheck today's complaints, Continuance of care, Re-evaluation by your physician Discharge Instructions: - Discharge Summary Sheet kb - Abdominal Pain, Adult, [id number] kb Forms: - Medication Reconciliation Form kb - Antibiotic Education kb - Prescription Opioid Use kb - Patient Portal Instructions kb - Leadership Thank You Letter kb Signatures: Dispatcher [employer] EDJulienne Sinha, PATIENT FINANCIAL REPRESENTATIVE-C MICHELE-Kuldip Barlow, RN RN jb4 Jessica Pinedo, RN RN me1
[2025-01-23 04:05] VITALS: TEMP 98.2
[2025-01-23 04:07] VITALS: BP 119/72; O2SAT 95
== END 2025-01-22 20:01 | disposition home or self-care (01) ==
LOC: ER 17:11
DX: R10.9 Unspecified abdominal pain (principal); R11.0 Nausea; R68.83 Chills (without fever); E11.9 Type 2 diabetes mellitus without complications; I10 Essential (primary) hypertension; E03.9 Hypothyroidism, unspecified; F17.290 Nicotine dependence, other tobacco product, uncomplicated
CPT/HCPCS: 85025; 81001; 36415; 83690; 80053; 74177; 96375; 96374; 99284; Q9967; J2270; J2405; J7030